=== PATIENT | male | born 1955 | race Caucasian/White ===

== ENCOUNTER 2019-06-28 05:00 | Emergency (ER) | payer OTHER ==
[2019-06-28] MEDS ORDERED: MORPHINE 4 MG/ML SYR ONE (05:26)
[2019-06-28] MEDS ORDERED: KETOROLAC 30 MG/ML INJ ONE (05:26)
[2019-06-28] MEDS ORDERED: NA CHLORIDE 0.9% 1,000 ML ONE (05:27)
[2019-06-28] MEDS ORDERED: ONDANSETRON 4 MG/2 ML VIAL ONE (05:27)
[2019-06-28 05:38] LABS: Absolute Lymphocytes (CBC) 1.7 K/uL (0.7-4.9); Basophils % 1.3 % (0-1.3); Hematocrit 43.1 % (39.6-49.0); Lymphocytes % 20.4 % (15.3-44.8); MPV 9.6 fL (7.6-11.3); RBC Red Blood Cell Count 5.08 M/uL (4.33-5.43)
[2019-06-28 06:01] LABS: ALT/SGPT 19 U/L (12-78); AST/SGOT 19 U/L (15-37); Albumin 3.6 g/dL (3.4-5.0); Alkaline Phosphatase 108 U/L (45-117); BUN Blood Urea Nitrogen 24 mg/dL (7-18); Bicarbonate 27 mmol/L (21-32); Bilirubin Direct < 0.1 mg/dL (0-0.2); Bilirubin Total 0.2 mg/dL (0.2-1.0); Glucose Level 104 mg/dL (74-106); Lipase 146 U/L (73-393); Protein, Total 7.5 g/dL (6.4-8.2); Sodium Level 141 mmol/L (136-145)
--- NOTE | 2019-06-28 07:40 | ER ---
Nurse's Notes [facility] Name: Ryan Bassett Age: 63 yrs Sex: Male : 1955 Arrival Date: 06/28/2019 Time: 05:01 Bed 6 Private MD: Aakash Tilley V Diagnosis: Hydronephrosis with renal and ureteral calculous obstruction Presentation: 06/28 05:13 Presenting complaint: Patient states: that he started to have left lower back pain fc after urination at 0200. Also having dark urine. Denies any nausea or vomiting. Thinks he may have kidney stones, hx of. Transition of care: patient was not received from another setting of care. Onset of symptoms was June 28, 2019 at 02:00. Risk Assessment: Do you want to hurt yourself or someone else? Patient reports no desire to harm self or others. Initial Sepsis Screen: Does the patient meet any 2 criteria? No. Patient's initial sepsis screen is negative. Does the patient have a suspected source of infection? No. Patient's initial sepsis screen is negative. Care prior to arrival: None. 05:13 Method Of Arrival: Ambulatory fc 05:13 Acuity: KAYCE 3 fc Historical: - Allergies: 05:21 No Known Allergies; fc - Home Meds: 05:21 gabapentin 300 mg oral cap 1 cap twice a day [Active]; meloxicam 15 mg oral tab 1 tab fc once daily [Active]; Myrbetriq 25 mg oral Tb24 1 tab once daily [Active]; - PMHx: 05:21 Kidney stones; Prostate Cancer; Chronic pain; fc - PSHx: 05:21 Prostate removal; Appendectomy; Knee surgery; fc - Immunization history:: Last tetanus immunization: up to date. - Social history:: Smoking status: Patient/guardian denies using tobacco, Patient/guardian denies using alcohol, street drugs. - Ebola Screening: : Patient negative for fever greater than or equal to 101.5 degrees Fahrenheit, and additional compatible Ebola Virus Disease symptoms Patient denies exposure to infectious person Patient denies travel to an Ebola-affected area in the 21 days before illness onset. Screenin:16 Abuse screen: Denies threats or abuse. Nutritional screening: No deficits noted. fc Tuberculosis screening: No symptoms or risk factors identified. Fall Risk None identified. Assessment: 05:34 General: Appears in no apparent distress. well groomed, Behavior is calm, cooperative. ak1 Pain: Complains of pain in LEFT FLANK. Neuro: Level of Consciousness is awake, alert, obeys commands, Oriented to person, place, Serging Machine Operator are equal bilaterally Moves all extremities. Gait is steady, Speech is normal. Cardiovascular: No deficits noted. Respiratory: No deficits noted. GI: No signs and/or symptoms were reported involving the gastrointestinal system. : Reports pain in left flank(s). EENT: No signs and/or symptoms were reported regarding the EENT system. Derm: No signs and/or symptoms reported regarding the dermatologic system. Musculoskeletal: No signs and/or symptoms reported regarding the musculoskeletal system. 06:07 Reassessment: pt taken to CT. ak1 06:22 Reassessment: Patient appears in no apparent distress at this time. Patient and/or ak1 family updated on plan of care and expected duration. Pain level reassessed. Patient is alert, oriented x 3, equal unlabored respirations, skin warm/dry/pink. Patient denies pain at this time. Patient states feeling better. Patient states symptoms have improved. 06:53 Reassessment: pt given urinal to provide a sample, no urine at this time. ak1 07:49 Reassessment: Patient appears in no apparent distress at this time. Patient and/or ph family updated on plan of care and expected duration. Pain level reassessed. Patient is alert, oriented x 3, equal unlabored respirations, skin warm/dry/pink. Pt providing urine sample at this time, d/c pending KUB per request of Dr Henderson Patient states feeling better. Vital Signs: 05:13 BP 159 / 96; Pulse 72; Resp 18; Temp 97.4(O); Pulse Ox 100% on R/A; Weight 112.49 kg fc (R); Height 5 ft. 8 in. (172.72 cm) (R); Pain 9/10; 05:34 BP 146 / 87; Pulse 78; Resp 18; Temp 97.4; Pulse Ox 98% on R/A; ak1 06:22 BP 134 / 78; Pulse 73; Resp 16; Temp 97.6; Pulse Ox 97% on R/A; Pain 2/10; ak1 07:50 BP 130 / 75; Pulse 74; Resp 18; Pulse Ox 99% on R/A; ph 05:13 Body Mass Index 37.71 (112.49 kg, 172.72 cm) ED Course: 05:01 Patient arrived in ED. am2 05:01 Aakash Tilley MD is Private Physician. am2 05:13 Arm band placed on Patient placed in an exam room, on a stretcher. fc 05:14 Kim Bond, RN is Primary Nurse. ak1 05:15 Triage completed. fc 05:16 Patient has correct armband on for positive identification. Placed in gown. Bed in low fc position. Call light in reach. Side rails up X 1. Pulse ox on. NIBP on. 05:16 No provider procedures requiring assistance completed. fc 05:35 Initial lab(s) drawn, by me, sent to lab. Inserted saline lock: 22 gauge in right ak1 antecubital area, using aseptic technique. Blood collected. 06:03 Morena Bran [facility]C [facility]. snw 06:03 Dane Ramirez MD is Attending Physician. snw 06:20 CT Stone Protocol In Process Unspecified. EDMS 07:37 Mingo Henderson MD is Referral Physician. snw 07:58 Abdomen 1 View (KUB) XRAY In Process Unspecified. EDMS 09:05 IV discontinued, intact, bleeding controlled, No redness/swelling at site. Pressure ss dressing applied. Administered Medications: 05:33 Drug: NS 0.9% 1000 ml Route: IV; Rate: 1 bolus; Site: right antecubital; ak1 06:54 Follow up: IV Status: Completed infusion; IV Intake: 1000ml ak1 05:33 Drug: morphine 4 mg Route: IVP; Site: right antecubital; ak1 06:53 Follow up: Response: No adverse reaction; Pain is decreased; RASS: Alert and Calm (0) ak1 05:33 Drug: Zofran 4 mg Route: IVP; Site: right antecubital; ak1 06:53 Follow up: Response: No adverse reaction ak1 05:33 Drug: TORadol 15 mg Route: IVP; Site: right antecubital; ak1 06:53 Follow up: Response: No adverse reaction; Pain is decreased ak1 07:49 Drug: Flomax 0.4 mg Route: PO; ph 07:58 Follow up: Response: No adverse reaction ph Intake: 06:54 IV: 1000ml; Total: 1000ml. ak1 Outcome: 07:38 Discharge ordered by . snw 09:05 Discharged to home with family. ss 09:05 Condition: good 09:05 Condition: improved 09:05 Instructed on discharge instructions, follow up and referral plans. medication usage, Demonstrated understanding of instructions, follow-up care, medications, Prescriptions given X 4. 09:06 Patient left the ED. ss Signatures: Dispatcher [employer] EDMS Morena Bran, CASE MGR-C CASE MGR-Csnw Miladys Jones RN KRISTOFER fc An Scott RN RN ss Kim Bond RN RN ak1 Josie Aranda RN RN Daria Connor Corrections: (The following items were deleted from the chart) 05:15 05:13 Presenting complaint: Patient states: that he started to have left lower back fc pain after urination at 0200. Also having dark urine. Denies any nausea or vomiting. fc
--- NOTE | 2019-06-28 07:41 | EDPHYS ---
Physician Documentation [facility] Name: Ryan Bassett Age: 63 yrs Sex: Male : 1955 Arrival Date: 06/28/2019 Time: 05:01 Bed 6 Private MD: Aakash Tilley V ED Physician Dane Ramirez HPI: 06/28 06:36 This 63 yrs old Male presents to ER via Ambulatory with complaints of Back snw Pain, kidney stones. 06:36 The patient presents with pain that is acute, with no known mechanism of injury, sudden snw onset of left flank pain post voiding at 0200. The symptoms are located in the left mid back. Onset: The symptoms/episode began/occurred suddenly, and became persistent. The pain does not radiate. Associated signs and symptoms: Pertinent negatives: abdominal pain, fever, nausea, vomiting. The problem was sustained awoke at 0200, urinated and then had severe left flank pain. Severity of symptoms: At their worst the symptoms were moderate, severe. 30 years ago. The patient has not recently seen a physician, the patient's primary care provider is Dr. Dr Tilley. Pt has a urologist at [facility]. at the time of my arrival, pt had Morphine, IVF. Pt states he is feeling great. Awaiting CT results, UA. Historical: - Allergies: 05:21 No Known Allergies; fc - Home Meds: 05:21 gabapentin 300 mg oral cap 1 cap twice a day [Active]; meloxicam 15 mg oral tab 1 tab fc once daily [Active]; Myrbetriq 25 mg oral Tb24 1 tab once daily [Active]; - PMHx: 05:21 Kidney stones; Prostate Cancer; Chronic pain; fc - PSHx: 05:21 Prostate removal; Appendectomy; Knee surgery; fc - Immunization history:: Last tetanus immunization: up to date. - Social history:: Smoking status: Patient/guardian denies using tobacco, Patient/guardian denies using alcohol, street drugs. - Ebola Screening: : Patient negative for fever greater than or equal to 101.5 degrees Fahrenheit, and additional compatible Ebola Virus Disease symptoms Patient denies exposure to infectious person Patient denies travel to an Ebola-affected area in the 21 days before illness onset. ROS: 06:35 Constitutional: Negative for fever, chills, and weight loss, Eyes: Negative for injury, snw pain, redness, and discharge, ENT: Negative for injury, pain, and discharge, Neck: Negative for injury, pain, and swelling, Cardiovascular: Negative for chest pain, palpitations, and edema, Respiratory: Negative for shortness of breath, cough, wheezing, and pleuritic chest pain, Abdomen/GI: Negative for abdominal pain, nausea, vomiting, diarrhea, and constipation, Back: Negative for injury and pain, : Negative for injury, bleeding, discharge, and swelling, MS/Extremity: Negative for injury and deformity, Skin: Negative for injury, rash, and discoloration, Neuro: Negative for headache, weakness, numbness, tingling, and seizure, Psych: Negative for depression, anxiety, suicide ideation, homicidal ideation, and hallucinations. Exam: 06:35 Constitutional: This is a well developed, well nourished patient who is awake, alert, snw and in no acute distress. Head/Face: Normocephalic, atraumatic. Eyes: Pupils equal round and reactive to light, extra-ocular motions intact. Lids and lashes normal. Conjunctiva and sclera are non-icteric and not injected. Cornea within normal limits. Periorbital areas with no swelling, redness, or edema. ENT: Nares patent. No nasal discharge, no septal abnormalities noted. Tympanic membranes are normal and external auditory canals are clear. Oropharynx with no redness, swelling, or masses, exudates, or evidence of obstruction, uvula midline. Mucous membranes moist. Neck: Trachea midline, no thyromegaly or masses palpated, and no cervical lymphadenopathy. Supple, full range of motion without nuchal rigidity, or vertebral point tenderness. No Meningismus. Chest/axilla: Normal chest wall appearance and motion. Nontender with no deformity. No lesions are appreciated. Cardiovascular: Regular rate and rhythm with a normal S1 and S2. No gallops, murmurs, or rubs. Normal PMI, no JVD. No pulse deficits. Respiratory: Lungs have equal breath sounds bilaterally, clear to auscultation and percussion. No rales, rhonchi or wheezes noted. No increased work of breathing, no retractions or nasal flaring. Abdomen/GI: Soft, non-tender, with normal bowel sounds. No distension or tympany. No guarding or rebound. No evidence of tenderness throughout. Back: No spinal tenderness. No costovertebral tenderness. Full range of motion. Skin: Warm, dry with normal turgor. Normal color with no rashes, no lesions, and no evidence of cellulitis. MS/ Extremity: Pulses equal, no cyanosis. Neurovascular intact. Full, normal range of motion. Neuro: Awake and alert, GCS 15, oriented to person, place, time, and situation. Cranial nerves II-XII grossly intact. Motor strength 5/5 in all extremities. Sensory grossly intact. Cerebellar exam normal. Normal gait. Psych: Awake, alert, with orientation to person, place and time. Behavior, mood, and affect are within normal limits. Vital Signs: 05:13 BP 159 / 96; Pulse 72; Resp 18; Temp 97.4(O); Pulse Ox 100% on R/A; Weight 112.49 kg fc (R); Height 5 ft. 8 in. (172.72 cm) (R); Pain 9/10; 05:34 BP 146 / 87; Pulse 78; Resp 18; Temp 97.4; Pulse Ox 98% on R/A; ak1 06:22 BP 134 / 78; Pulse 73; Resp 16; Temp 97.6; Pulse Ox 97% on R/A; Pain 2/10; ak1 07:50 BP 130 / 75; Pulse 74; Resp 18; Pulse Ox 99% on R/A; ph 05:13 Body Mass Index 37.71 (112.49 kg, 172.72 cm) MDM: 06:03 Patient medically screened. snw 07:32 Data reviewed: vital signs, nurses notes. Data interpreted: Pulse oximetry: on room air snw is 97 %. Interpretation: normal. Counseling: I had a detailed discussion with the patient and/or guardian regarding: the historical points, exam findings, and any diagnostic results supporting the discharge/admit diagnosis, the presence of at least one elevated blood pressure reading (>120/80) during this emergency department visit, lab results, radiology results, the need for outpatient follow up, a urologist. Physician consultation: Mingo Henderson MD was called at 07:33, was contacted at 07:33, regarding consult, patient's condition, need to evaluate the patient as soon as possible, KUB and bring films, stop anticoagulants, see in office 0800 Sunday a.m.. 06/28 05:12 Order name: Basic Metabolic Panel; Complete Time: 06:15 tw4 06/28 05:12 Order name: CBC with Diff; Complete Time: 06:15 tw4 06/28 05:12 Order name: Creatinine for Radiology; Complete Time: 06:15 tw4 06/28 05:12 Order name: Hepatic Function; Complete Time: 06:15 tw4 06/28 05:12 Order name: Lipase; Complete Time: 06:15 tw4 06/28 05:12 Order name: Urine Microscopic Only; Complete Time: 08:59 tw4 06/28 05:12 Order name: CT Stone Protocol tw4 06/28 07:32 Order name: Abdomen 1 View (KUB) XRAY snw 06/28 08:01 Order name: Urine Dipstick--Ancillary (enter results); Complete Time: 08:59 eb 06/28 08:57 Order name: Urine Culture EDMS 06/28 05:12 Order name: IV Saline Lock; Complete Time: 05:33 tw4 06/28 05:12 Order name: Labs collected and sent; Complete Time: 05:34 tw4 06/28 05:12 Order name: Urine Dipstick-Ancillary (obtain specimen); Complete Time: 07:58 tw4 Administered Medications: 05:33 Drug: NS 0.9% 1000 ml Route: IV; Rate: 1 bolus; Site: right antecubital; ak1 06:54 Follow up: IV Status: Completed infusion; IV Intake: 1000ml ak1 05:33 Drug: morphine 4 mg Route: IVP; Site: right antecubital; ak1 06:53 Follow up: Response: No adverse reaction; Pain is decreased; RASS: Alert and Calm (0) ak1 05:33 Drug: Zofran 4 mg Route: IVP; Site: right antecubital; ak1 06:53 Follow up: Response: No adverse reaction ak1 05:33 Drug: TORadol 15 mg Route: IVP; Site: right antecubital; ak1 06:53 Follow up: Response: No adverse reaction; Pain is decreased ak1 07:49 Drug: Flomax 0.4 mg Route: PO; ph 07:58 Follow up: Response: No adverse reaction ph Disposition: 06/29 06:02 Co-signature as Attending Physician, Dane Ramirez MD I agree with the assessment and tw4 plan of care. Disposition: 06/28/19 07:38 Discharged to Home. Impression: Hydronephrosis with renal and ureteral calculous obstruction. - Condition is Stable. - Discharge Instructions: Kidney Stones, Hydronephrosis, Dietary Guidelines to Help Prevent Kidney Stones, Rehydration, Adult. - Prescriptions for Tylenol- Codeine #3 300-30 mg Oral Tablet - take 2 tablets by ORAL route every 6 hours As needed; 20 tablet. Flomax 0.4 mg Oral Capsule, Sust. Release 24 hr - take 1 capsule by ORAL route once daily 1/2 hour following the same meal each day; 30 capsule. Cipro 500 mg Oral Tablet - take 1 tablet by ORAL route every 12 hours for 7 days; 14 tablet. promethazine 25 mg Oral Tablet - take 1 tablet by ORAL route every 6 hours As needed; 20 tablet. - Medication Reconciliation Form, Thank You Letter, Antibiotic Education, Prescription Opioid Use form. - Follow up: Mingo Henderson MD; When: Sunday at 0800; Reason: Recheck today's complaints, Continuance of care. Follow up: Emergency Department; When: As needed; Reason: Worsening of condition. Signatures: Dispatcher [employer] EDMS Morena Bran, AMANDA-C ARMATURE WINDER-Csnw Miladys Jones, RN An Salvador RN RN ss Krenek, Amber, RN RN Josie Luciano, RN RN Dane Bond MD MD tw4 Corrections: (The following items were deleted from the chart) 06/28 09:06 07:38 06/28/2019 07:38 Discharged to Home. Impression: Hydronephrosis with renal and ss ureteral calculous obstruction. Condition is Stable. Forms are Medication Reconciliation Form, Thank You Letter, Antibiotic Education, Prescription Opioid Use. Follow up: Mingo Henderson; When: Sunday at 0800; Reason: Recheck today's complaints, Continuance of care. Follow up: Emergency Department; When: As needed; Reason: Worsening of condition. snw
[2019-06-28] MEDS ORDERED: TAMSULOSIN 0.4 MG SR CAP ONE (07:47)
[2019-06-28 08:37] LABS: Urine Blood 2+ (NEG); Urine Glucose NEGATIVE (NEG); Urine Protein 1+ (NEG); Urine Specific Gravity 1.015 (1.005-1.030)
[2019-06-28 08:54] LABS: Urine Bacteria 20-50 /HPF (NONE SEEN); Urine Culture Reflex Order REFLEXED; Urine RBC 20-50 /HPF (NONE SEEN)
--- NOTE | 2019-06-28 12:21 | RAD REPORT ---
EXAM DESCRIPTION: RAD - Abdomen 1 View (KUB) - 06/28/2019 8:01 am CLINICAL HISTORY: kidney stone Pain COMPARISON: ABDOMEN 1 VIEW KUB dated 10/07/2012BDOMEN 1 VIEW KUB dated 10/07/2012; Stone Protocol d ated 06/28/2019 FINDINGS: The bowel gas pattern is non-obstructive. No evidence of free air or pneumatosis. The bolivar ent's proximal left ureter stone is difficult to visualize due to the presence of significant stool w ithin the colon superimposed in the region.
--- NOTE | 2019-06-30 10:11 | RAD REPORT ---
EXAM DESCRIPTION: CT Abdomen and Pelvis Without Intravenous Contrast CLINICAL HISTORY: The patient is 63 years old and is Male; ABD PAIN TECHNIQUE: Axial computed tomography images of the abdomen and pelvis without intravenous contrast. Sagittal and coronal reformatted images were created and reviewed. This CT exam was performed usi ng one or more of the following dose reduction techniques: automated exposure control, adjustment o f the mA and/or kV according to patient size, and/or use of iterative reconstruction technique. COMPARISON: No relevant prior studies available. FINDINGS: LUNG BASES: Unremarkable. No mass. No consolidation. ABDOMEN: LIVER: Homogeneous without focal mass. GALLBLADDER AND BILE DUCTS: The gallbladder is contracted. PANCREAS: Unremarkable. No ductal dilation. SPLEEN: Unremarkable. ADRENALS: Unremarkable. No mass. KIDNEYS AND URETERS: Mild left hydronephrosis is present secondary to an 8 mm proximal left uret eral calculus. Edema of the left kidney with associated perinephric stranding is present. Several l eft intrarenal calcifications are present. Punctate right intrarenal calcification is noted. STOMACH AND BOWEL: The stomach is decompressed. The small bowel is relatively normal in caliber. Stool is present throughout the colon. There is no mucosal thickening or evidence of bowel obstructi on. PELVIS: APPENDIX: No findings to suggest acute appendicitis. BLADDER: The bladder is moderately distended. No stones. REPRODUCTIVE: Unremarkable as visualized. ABDOMEN and PELVIS: INTRAPERITONEAL SPACE: Unremarkable. No free air. No significant fluid collection. BONES/JOINTS: Bilateral pars defects are present at L5 with grade 1 anterolisthesis of L5 on S1. SOFT TISSUES: Small fat-containing umbilical hernia is present. VASCULATURE: Minimal atherosclerosis of the vasculature is present. The vessels are normal in ca liber. No abdominal aortic aneurysm. LYMPH NODES: Unremarkable. No enlarged lymph nodes. IMPRESSION: 1. Mild left hydronephrosis is present secondary to an 8 mm proximal left ureteral raheem culus. 2. Bilateral nephrolithiasis. Electronically signed by: Patti Oconnor MD 06/28/2019 6:42 AM CDT Due to temporary technical issues with the PACS/Fluency reporting system, reports are being signed by the in house radiologist as a courtesy to ensure prompt reporting. The interpreting radiologist is f ully responsible for the content of the report.
== END 2019-06-28 09:06 | disposition home or self-care (01) ==
LOC: ER 05:00
DX: N13.2 Hydronephrosis with renal and ureteral calculous obstruction (principal); G89.29 Other chronic pain; Z90.79 Acquired absence of other genital organ(s); Z85.46 Personal history of malignant neoplasm of prostate
CPT/HCPCS: 96361; 87088; 85025; 87086; 80048; 36415; 80076; 83690; 76377; 74176; 74018; 96375; 96374; 99284; J7030; J2405; 81003; 81015; 87077; 87186

== ENCOUNTER 2019-07-08 19:34 | Inpatient (IN) | payer OTHER ==
[2019-07-08] MEDS ORDERED: MORPHINE 4 MG/ML SYR ONE ×2 (20:00→21:30)
[2019-07-08] MEDS ORDERED: KETOROLAC 30 MG/ML INJ ONE (20:00)
[2019-07-08] MEDS ORDERED: NA CHLORIDE 0.9% 1,000 ML ONE (20:01)
[2019-07-08] MEDS ORDERED: ONDANSETRON 4 MG/2 ML VIAL ONE (20:01)
[2019-07-08] MEDS ORDERED: CEFTRIAXONE/SWI 1gm 1 GM/10 ML SYR ONE (20:01)
[2019-07-08 20:25] LABS: Basophils % 0.5 % (0-1.3); Hematocrit 41.4 % (39.6-49.0); Lymphocytes % 6.2 % (15.3-44.8); MPV 9.5 fL (7.6-11.3); RBC Red Blood Cell Count 4.86 M/uL (4.33-5.43)
--- NOTE | 2019-07-08 20:42 | RAD REPORT ---
EXAM DESCRIPTION: CT - Stone Protocol - 07/08/2019 8:30 pm CLINICAL HISTORY: Flank pain. Abd pain;Flank pain COMPARISON: Stone Protocol dated 07/07/2019 TECHNIQUE: Axial images were obtained without oral or IV contrast. Lack of contrast limits solid org an and vascular assessment. The [id number] spans the entirety of the system partially obscuring uppermost abdomen and lung bases. Coronal reformatted images were obtained and reviewed. All CT scans are performed using dose optimization technique as appropriate and may include automated exposure control or mA/KV adjustment according to patient size. FINDINGS: The lower lung seymour are clear. Imaged portions of the liver and spleen show no suspicious findings on non-contrast imaging. The panc reas and adrenal glands are normal. No pathologic lymphadenopathy in the abdomen or pelvis. A large acute left perinephric hematoma is present crescentic in shape in measuring 5 cm in thickness . Mild mass effect is seen on the left renal parenchyma. Small amount of inflammatory changes and flu id extends into the left upper quadrant. Left double-J stent is in place with proximal and distal asp ects in expected position. Two small stones are seen adjacent to the stent in the left renal pelvis. Punctate calculus is seen inferior right kidney. No bowel obstruction, free air, free fluid or abscess. Small fat containing umbilical hernia. No significant bony abnormality. IMPRESSION: Large, 5 cm thick crescentic acute left perinephric hematoma. Left double-J stent is in place with 2 small oblong stones in the left renal pelvis adjacent to the s tent.
--- NOTE | 2019-07-08 20:47 | RAD REPORT ---
EXAM DESCRIPTION: RAD - Abdomen 1 View (KUB) - 07/08/2019 8:39 pm CLINICAL HISTORY: Abd pain;Flank pain Pain COMPARISON: Abdomen 1 View (KUB) dated 07/07/2019; Abdomen 1 View (KUB) dated 06/28/2019; ABDOMEN 1 EW KUB dated 10/07/2012 FINDINGS: The bowel gas pattern is non-obstructive. No evidence of free air or pneumatosis. Left ricardo ble-J stent is in place. Proximal and distal aspects are in appropriate position. Small vague calcifi cations are seen the proximal aspect of the stent.
[2019-07-08 20:59] LABS: ALT/SGPT 26 U/L (12-78); AST/SGOT 19 U/L (15-37); Albumin 3.5 g/dL (3.4-5.0); Alkaline Phosphatase 95 U/L (45-117); BUN Blood Urea Nitrogen 28 mg/dL (7-18); Bicarbonate 21 mmol/L (21-32); Bilirubin Direct < 0.1 mg/dL (0-0.2); Bilirubin Total 0.3 mg/dL (0.2-1.0); Glucose Level 179 mg/dL (74-106); Lipase 75 U/L (73-393); Potassium 4.4 mmol/L (3.5-5.1); Protein, Total 7.4 g/dL (6.4-8.2); Sodium Level 139 mmol/L (136-145)
[2019-07-08 21:19] LABS: Urine Blood 3+ (NEG); Urine Glucose TRACE (NEG); Urine Protein 3+ (NEG); Urine Specific Gravity >1.030 (1.005-1.030)
--- NOTE | 2019-07-08 22:02 | EDPHYS ---
Physician Documentation [facility] Name: Ryan Bassett Age: 63 yrs Sex: Male : 1955 Arrival Date: 07/08/2019 Time: 19:38 Bed 15 Private MD: Aakash Tilley V ED Physician José Byers HPI: 07/08 20:20 This 63 yrs old Male presents to ER via Wheelchair with complaints of juan Abdominal Pain. 20:20 The patient presents with abdominal pain in the left upper quadrant, in the left lower juan quadrant. Onset: The symptoms/episode began/occurred 1 day(s) ago. The patient complains of pain in the left low back and left mid back. The pain radiates to the left low back and left mid back. Onset: The symptoms/episode began/occurred 2 day(s) ago. Modifying factors: The symptoms are alleviated by nothing. the symptoms are aggravated by nothing. The patient presents with pain that is acute, with no known mechanism of injury. Historical: - Allergies: 19:49 No Known Allergies; la1 - PMHx: 19:49 Chronic pain; Kidney stones; Prostate Cancer; la1 - Immunization history:: Adult Immunizations up to date. - Social history:: Smoking status: Patient/guardian denies using tobacco. - Ebola Screening: : No symptoms or risks identified at this time. - Family history:: not pertinent. ROS: 20:20 Eyes: Negative for injury, pain, redness, and discharge, ENT: Negative for injury, juan pain, and discharge, Neck: Negative for injury, pain, and swelling, Cardiovascular: Negative for chest pain, palpitations, and edema, Respiratory: Negative for shortness of breath, cough, wheezing, and pleuritic chest pain. 20:20 : Negative for injury, bleeding, discharge, and swelling, MS/Extremity: Negative for injury and deformity, Skin: Negative for injury, rash, and discoloration, Neuro: Negative for headache, weakness, numbness, tingling, and seizure, Psych: Negative for depression, anxiety, suicide ideation, homicidal ideation, and hallucinations, Allergy/Immunology: Negative for hives, rash, and allergies, Endocrine: Negative for neck swelling, polydipsia, polyuria, polyphagia, and marked weight changes, Hematologic/Lymphatic: Negative for swollen nodes, abnormal bleeding, and unusual bruising. 20:20 Constitutional: Positive for chills, malaise. 20:20 Abdomen/GI: Positive for abdominal pain, abdominal cramps, abdominal distension, of the left upper quadrant and left lower quadrant. 20:20 Back: Positive for decreased range of motion, pain at rest, flank pain, on the left. Exam: 20:20 Constitutional: This is a well developed, well nourished patient who is awake, alert, juan and in no acute distress. Head/Face: Normocephalic, atraumatic. Eyes: Pupils equal round and reactive to light, extra-ocular motions intact. Lids and lashes normal. Conjunctiva and sclera are non-icteric and not injected. Cornea within normal limits. Periorbital areas with no swelling, redness, or edema. ENT: Nares patent. No nasal discharge, no septal abnormalities noted. Tympanic membranes are normal and external auditory canals are clear. Oropharynx with no redness, swelling, or masses, exudates, or evidence of obstruction, uvula midline. Mucous membranes moist. Neck: Trachea midline, no thyromegaly or masses palpated, and no cervical lymphadenopathy. Supple, full range of motion without nuchal rigidity, or vertebral point tenderness. No Meningismus. Chest/axilla: Normal chest wall appearance and motion. Nontender with no deformity. No lesions are appreciated. Cardiovascular: Regular rate and rhythm with a normal S1 and S2. No gallops, murmurs, or rubs. Normal PMI, no JVD. No pulse deficits. Respiratory: Lungs have equal breath sounds bilaterally, clear to auscultation and percussion. No rales, rhonchi or wheezes noted. No increased work of breathing, no retractions or nasal flaring. Abdomen/GI: Soft, non-tender, with normal bowel sounds. No distension or tympany. No guarding or rebound. No evidence of tenderness throughout. Male : Normal genitalia with no discharge or lesions. Skin: Warm, dry with normal turgor. Normal color with no rashes, no lesions, and no evidence of cellulitis. MS/ Extremity: Pulses equal, no cyanosis. Neurovascular intact. Full, normal range of motion. Neuro: Awake and alert, GCS 15, oriented to person, place, time, and situation. Cranial nerves II-XII grossly intact. Motor strength 5/5 in all extremities. Sensory grossly intact. Cerebellar exam normal. Normal gait. Psych: Awake, alert, with orientation to person, place and time. Behavior, mood, and affect are within normal limits. 20:20 Back: pain, is absent, ROM is normal, normal spinal alignment noted, CVA tenderness, that is mild, that is moderate, is noted on the left, vertebral tenderness, is not appreciated, muscle spasm, is not present. Vital Signs: 19:49 BP 123 / 92; Pulse 84; Resp 16; Temp 98.4; Pulse Ox 98% on R/A; Weight 112.49 kg; la1 Height 5 ft. 8 in. (172.72 cm); 21:22 BP 133 / 84; Pulse 68; Resp 18; Pulse Ox 96% on R/A; Pain 7/10; lc1 22:15 BP 122 / 80; Pulse 84; Resp 16; Pulse Ox 97% on R/A; lc1 23:15 BP 126 / 93; Pulse 84; Resp 16; Pulse Ox 94% on R/A; lc1 19:49 Body Mass Index 37.71 (112.49 kg, 172.72 cm) la1 MDM: 19:52 Patient medically screened. [facility] 20:22 Data reviewed: vital signs, nurses notes, lab test result(s), EKG, radiologic studies, [facility] CT scan, plain films. 07/08 19:55 Order name: Basic Metabolic Panel; Complete Time: 21:12 [facility] 07/08 19:55 Order name: CBC with Diff [facility] 07/08 19:55 Order name: Creatinine for Radiology; Complete Time: 21:12 [facility] 07/08 19:55 Order name: Hepatic Function; Complete Time: 21:12 [facility] 07/08 19:55 Order name: Lipase; Complete Time: 21:12 [facility] 07/08 19:55 Order name: Urine Culture [facility] 07/08 19:55 Order name: CT Stone Protocol; Complete Time: 21:12 [facility] 07/08 19:55 Order name: Abdomen 1 View (KUB) XRAY; Complete Time: 21:12 [facility] 07/08 20:27 Order name: Manual Differential EDMS 07/08 20:53 Order name: Urine Dipstick--Ancillary (enter results) mw2 07/08 19:55 Order name: IV Saline Lock; Complete Time: 20:07 [facility] 07/08 19:55 Order name: Labs collected and sent; Complete Time: 20: [facility] 07/08 19:55 Order name: Urine Dipstick-Ancillary (obtain specimen); Complete Time: 20:55 [facility] Administered Medications: 20:17 Drug: NS 0.9% 1000 ml Route: IV; Rate: 1 bolus; Site: right antecubital; lc1 22:43 Follow up: IV Status: Infusion continued lc1 22:43 Follow up: Response: No adverse reaction 1 20:20 Drug: morphine 4 mg {Note: RASS 0.} Route: IVP; Site: right antecubital; lc1 21:00 Follow up: Response: Pain is decreased lc1 21:00 Follow up: Response: RASS: Alert and Calm (0) 1 20:20 Drug: Zofran 4 mg Route: IVP; Infused Over: 2 mins; Site: right antecubital; lc1 21:00 Follow up: Response: No adverse reaction 1 20:24 Drug: TORadol 30 mg Route: IVP; Site: right antecubital; lc1 21:39 Follow up: Response: No adverse reaction 1 20:24 Drug: Rocephin 1 grams Route: IV; Rate: per protocol; Site: right antecubital; lc1 21:40 Follow up: Response: No adverse reaction lc1 22:48 Follow up: IV Status: Completed infusion lc1 21:35 Drug: morphine 4 mg {Note: RASS 0.} Route: IVP; Site: right antecubital; lc1 22:39 Follow up: Response: Pain is decreased 1 22:39 Follow up: Response: RASS: Drowsy (-1) 1 Disposition: 07/08/19 21:45 Hospitalization ordered by Aakash Tilley for Inpatient Admission. Preliminary diagnosis are Hydronephrosis with renal and ureteral calculous obstruction - 5 cm perinephric hematoma, left, Unspecified kidney failure. - Bed requested for Telemetry/MedSurg (Inpatient). - Status is Inpatient Admission. lc1 - Condition is Fair. - Problem is new. - Symptoms have improved. UTI on Admission? Yes Signatures: Dispatcher [employer] EDMS José Byers MD MD cha Calhoun, Lisa lc1 Panchito Serna RN RN la1 Quinn, Pretty, RN RN cg Corrections: (The following items were deleted from the chart) 22:01 21:45 Hospitalization Ordered by Aakash Tilley MD for Inpatient Admission. Preliminary juan diagnosis is Hydronephrosis with renal and ureteral calculous obstruction - 5 cm perinephric hematoma, left. Bed requested for Telemetry/MedSurg (Inpatient). Status is Inpatient Admission. Condition is Fair. Problem is new. Symptoms have improved. UTI on Admission? Yes. [facility] 22:10 22:01 07/08/2019 21:45 Hospitalization Ordered by Aakash Tilley MD for Inpatient cg Admission. Preliminary diagnosis is Hydronephrosis with renal and ureteral calculous obstruction - 5 cm perinephric hematoma, left; Unspecified kidney failure. Bed requested for Telemetry/MedSurg (Inpatient). Status is Inpatient Admission. Condition is Fair. Problem is new. Symptoms have improved. UTI on Admission? Yes. [facility] 23:39 22:10 07/08/2019 21:45 Hospitalization Ordered by Aakash Tilley MD for Inpatient lc1 Admission. Preliminary diagnosis is Hydronephrosis with renal and ureteral calculous obstruction - 5 cm perinephric hematoma, left; Unspecified kidney failure. Bed requested for Telemetry/MedSurg (Inpatient). Status is Inpatient Admission. Condition is Fair. Problem is new. Symptoms have improved. UTI on Admission? Yes. cg
--- NOTE | 2019-07-08 22:02 | ER ---
Nurse's Notes [facility] Name: Ryan Bassett Age: 63 yrs Sex: Male : 1955 Arrival Date: 07/08/2019 Time: 19:38 Bed 15 Private MD: Aakash Tilley V Diagnosis: Hydronephrosis with renal and ureteral calculous obstruction-5 cm perinephric hematoma, left;Unspecified kidney failure Presentation: 07/08 19:48 Presenting complaint: Patient states: I had lithotripsy at noon today with Dr. Santiago penaloza and my pain got very severe around 1500. I need something to control this pain. Pt reports able to urinate without difficulty. Transition of care: patient was not received from another setting of care. Onset of symptoms was July 08, 2019. Risk Assessment: Do you want to hurt yourself or someone else? Patient reports no desire to harm self or others. Initial Sepsis Screen: Does the patient meet any 2 criteria? No. Patient's initial sepsis screen is negative. Does the patient have a suspected source of infection? No. Patient's initial sepsis screen is negative. Care prior to arrival: None. 19:48 Method Of Arrival: Wheelchair la1 19:48 Acuity: KAYCE 3 la1 Historical: - Allergies: 19:49 No Known Allergies; la1 - PMHx: 19:49 Chronic pain; Kidney stones; Prostate Cancer; la1 - Immunization history:: Adult Immunizations up to date. - Social history:: Smoking status: Patient/guardian denies using tobacco. - Ebola Screening: : No symptoms or risks identified at this time. - Family history:: not pertinent. Screenin:32 Abuse screen: Denies threats or abuse. Nutritional screening: No deficits noted. lc1 Tuberculosis screening: No symptoms or risk factors identified. Fall Risk None identified. Assessment: 20:32 General: Appears distressed, uncomfortable, Behavior is cooperative, restless, Reports. lc1 Pain: Complains of pain in left lower quadrant and left upper quadrant and left mid back and left low back Pain currently is 10 out of 10 on a pain scale. Quality of pain is described as sharp, Pain began Is continuous, Alleviated by nothing. Current management is with has been taking prescribed Tramadol at home which has not provided any relief. Neuro: No deficits noted. Cardiovascular: No deficits noted. Respiratory: No deficits noted. GI: Bowel sounds present X 4 quads. Abd is soft. : No signs and/or symptoms were reported regarding the genitourinary system. Reports had lithotripsy done today and still has stent in place, has been urinating without any difficulty, just having extreme pain. EENT: No signs and/or symptoms were reported regarding the EENT system. Derm: No signs and/or symptoms reported regarding the dermatologic system. Musculoskeletal: No signs and/or symptoms reported regarding the musculoskeletal system. 21:27 Reassessment: No changes from previously documented assessment. Patient and/or family lc1 updated on plan of care and expected duration. Pain level reassessed. states pain is creeping back up, provider notified. 22:15 Reassessment: Patient and/or family updated on plan of care and expected duration. Pain lc1 level reassessed. Patient states feeling better. patient resting, rr even and unlabored, call ramirez within reach, plan is to admit, awaiting room assignment . 23:14 Reassessment: Patient and/or family updated on plan of care and expected duration. Pain lc1 level reassessed. Patient states feeling better. patient sleeping, family at bedside, call ramirez within reach, updated on plan for admit . Vital Signs: 19:49 BP 123 / 92; Pulse 84; Resp 16; Temp 98.4; Pulse Ox 98% on R/A; Weight 112.49 kg; la1 Height 5 ft. 8 in. (172.72 cm); 21:22 BP 133 / 84; Pulse 68; Resp 18; Pulse Ox 96% on R/A; Pain 7/10; lc1 22:15 BP 122 / 80; Pulse 84; Resp 16; Pulse Ox 97% on R/A; lc1 23:15 BP 126 / 93; Pulse 84; Resp 16; Pulse Ox 94% on R/A; lc1 19:49 Body Mass Index 37.71 (112.49 kg, 172.72 cm) la1 ED Course: 19:38 Patient arrived in ED. mr 19:38 Aakash Tilley MD is Private Physician. mr 19:49 Triage completed. la1 19:49 Arm band placed on left wrist. la1 19:52 José Byers MD is Attending Physician. [facility] 19:55 Lisa Black is Primary Nurse. lc1 20:07 Inserted saline lock: 20 gauge in right antecubital area, using aseptic technique. jd2 Blood collected. 20:10 Radiology exam delayed due to pt refusing to come to CT before getting pain meds. nj 20:31 CT Stone Protocol In Process Unspecified. EDMS 20:32 Patient has correct armband on for positive identification. Bed in low position. Side lc1 rails up X 1. 20:32 No provider procedures requiring assistance completed. taken to CT. IV is patent, is lc1 intact, with fluids infusing freely, with good blood return. 20:38 Abdomen 1 View (KUB) XRAY In Process Unspecified. EDMS 20:45 Door closed. Noise minimized. Lights dimmed. Warm blanket given. lc1 20:55 Urine collected: clean catch specimen, blood tinged, Amount Voided: 250mL. jd2 20:55 Urine Culture Sent. jd2 21:22 Awaiting radiology results. lc1 21:44 Aakash Tilley MD is Hospitalizing Provider. [facility] 22:40 Patient admitted, IV remains in place. lc1 Administered Medications: 20:17 Drug: NS 0.9% 1000 ml Route: IV; Rate: 1 bolus; Site: right antecubital; 1 22:43 Follow up: IV Status: Infusion continued lc1 22:43 Follow up: Response: No adverse reaction 1 20:20 Drug: morphine 4 mg {Note: RASS 0.} Route: IVP; Site: right antecubital; 1 21:00 Follow up: Response: Pain is decreased 1 21:00 Follow up: Response: RASS: Alert and Calm (0) 1 20:20 Drug: Zofran 4 mg Route: IVP; Infused Over: 2 mins; Site: right antecubital; 1 21:00 Follow up: Response: No adverse reaction 1 20:24 Drug: TORadol 30 mg Route: IVP; Site: right antecubital; 1 21:39 Follow up: Response: No adverse reaction 1 20:24 Drug: Rocephin 1 grams Route: IV; Rate: per protocol; Site: right antecubital; lc1 21:40 Follow up: Response: No adverse reaction 1 22:48 Follow up: IV Status: Completed infusion 1 21:35 Drug: morphine 4 mg {Note: RASS 0.} Route: IVP; Site: right antecubital; [facility] 22:39 Follow up: Response: Pain is decreased [facility] 22:39 Follow up: Response: RASS: Drowsy (-1) [facility] Outcome: 21:45 Decision to Hospitalize by Provider. [facility] 22:40 Condition: good [facility] 22:40 Instructed on the need for admit. 23:13 Admitted to Tele family with patient, via stretcher, room 407, Report called to pablito sainz RN 23:39 Patient left the ED. [facility] Signatures: Dispatcher [employer] EDMS José Byers MD MD cha Rivera, Palak mr Sofia, [facility] Panchito Serna RN RN Festus Carranza Nathan nj Corrections: (The following items were deleted from the chart) 23:14 22:40 Admitted to [place] [id number] 07/09 07:14 07:14 Response: RASS: Alert and Calm (0) [place] [id number] 07:15 07:13 Response: RASS: Drowsy (-1) [place] [id number]
[2019-07-08 22:18] LABS: Blood Morphology Comment NOT SEEN (NOT SEEN); Platelet Estimate ADEQ
[2019-07-08] MEDS ORDERED: ACETAMINOPHEN 500 MG TAB PO PRN (23:42)
[2019-07-08] MEDS ORDERED: ONDANSETRON 4 MG/2 ML VIAL IV PRN (23:42)
[2019-07-09 00:09] LABS: Hematocrit 38.6 % (39.6-49.0); MPV 9.5 fL (7.6-11.3); RBC Red Blood Cell Count 4.52 M/uL (4.33-5.43)
[2019-07-09 00:53] VITALS: BMI 38.6
[2019-07-09 04:15] LABS: MPV 9.6 fL (7.6-11.3); RBC Red Blood Cell Count 4.06 M/uL (4.33-5.43)
[2019-07-09] MEDS: NA CHLORIDE 0.9% 1,000 ML IV SCH ×4 (05:15→23:42)
[2019-07-09] MEDS: MORPHINE 4 MG/ML SYR IV PRN ×4 (05:16→20:26)
[2019-07-09 07:11] LABS: Hematocrit 33.2 % (39.6-49.0); RBC Red Blood Cell Count 3.92 M/uL (4.33-5.43)
[2019-07-09 07:41] LABS: Bilirubin Direct 0.1 mg/dL (0-0.2); Bilirubin Total 0.3 mg/dL (0.2-1.0); Potassium 4.1 mmol/L (3.5-5.1); Protein, Total 6.6 g/dL (6.4-8.2)
[2019-07-09] MEDS: CEFTRIAXONE/SWI 1gm 1 GM/10 ML SYR IV SCH ×2 (08:05→20:28)
[2019-07-09] MEDS: FAMOTIDINE 20 MG/2 ML VIAL IV SCH ×2 (08:05→20:27)
--- NOTE | 2019-07-09 08:32 | RAD REPORT ---
EXAM DESCRIPTION: CT - Abdomen W Contrast - 07/09/2019 7:31 am CLINICAL HISTORY: Left perinephric hematoma COMPARISON: Stone Protocol dated 07/08/2019; Stone Protocol dated 07/07/2019; Stone Protocol dated 06/12 TECHNIQUE: Biphasic, helical CT imaging of the abdomen was performed following 100 ml non-ionic IV c ontrast. All CT scans are performed using dose optimization technique as appropriate and may include automated exposure control or mA/KV adjustment according to patient size. FINDINGS: No suspicious findings in the lung bases. The liver, spleen, and pancreas show no suspici ous findings. Gallbladder and biliary tree are also without suspicious finding. Renal function is symmetric on arterial and venous phase imaging. Left collecting system stent remain s in place. The large left perinephric hematoma is stable in size. No active extravasation seen on ar terial phase imaging. The retroperitoneal blood adjacent to the spleen and extending inferiorly from the left kidney also without change. No solid mass seen of either kidney. No adrenal gland abnormality. No dilated bowel loops or bowel wall thickening. No free air, free fluid or inflammatory stranding. No hernia, mass or bulky lymphadenopathy. No suspicious bony findings. IMPRESSION: A large left perinephric hematoma and retroperitoneal bleed detailed July 08 has remai nigel stable in size. On arterial phase imaging no active extravasation. No new or progressive finding since prior day ruperto ging.
[2019-07-09 11:17] LABS: Absolute Lymphocytes (CBC) 1.7 K/uL (0.7-4.9); Basophils % 0.6 % (0-1.3); Hematocrit 32.6 % (39.6-49.0); Lymphocytes % 12.9 % (15.3-44.8); RBC Red Blood Cell Count 3.83 M/uL (4.33-5.43)
--- NOTE | 2019-07-09 14:43 | CON ---
History Of Present Illness: A 63-year-old male who had ESWL performed yesterday, began having severe left-sided home flank pain. He was brought to the ER where a scan was done revealing a very large l eft perinephric hematoma, measuring 5 cm in diameter. Stent was in good position. The stone is now gone. However, he had a perinephric bleed. We have been following his H and H during the night home . He started out at 13.5. He did have some hydration and it went down to 12.5, then 11.4, 11.1, the latest is 10.7 done at 11 a.m. today. We are going to check another one in 4 hours and go ahead and get him type and screen. We got a followup CT scan done with contrast, did not show any extravasati on or any active bleeding going on. So, we have him on bedrest currently and on clears and continue to monitor H and H and see how he does. He did mention that he is hungry and would like to eat. Allergies: NO KNOWN DRUG ALLERGIES. Past Medical History: Kidney stones, chronic pain, prostate cancer. Immunizations: Up to date. Social History: No smoking. Family History: Not pertinent. Review of Systems: Ten-point review of systems otherwise negative. Physical Examination: Vital Signs: Temperature 98.6, pulse 82, respirations 20, BP 114/65, saturations 93%. General: Patient is in good spirits. is present in the room. HEENT: Atraumatic, normocephalic. Lungs: Clear. Heart: S1, S2. Some tenderness in the left upper quadrant towards the lateral side where the hemato ma is. Genitourinary: Patient is voiding, making urine. Laboratory Studies: As mentioned, his last H and H was 10.7 and 32.6, platelet count 213. Chemistry : Sodium 140, potassium 4.1, chloride 109, carbon dioxide 26, BUN 28, creatinine 1.1, GFR 67, glucos e 126, calcium 8.0. Urine study did show some 3+ blood, nitrite negative, esterase 1+. Assessment: Left perinephric bleed, 5 cm hematoma, status post extracorporeal shock wave lithotripsy , postop day 1 now. We will continue to monitor patient, bedrest, serial H and H, hydration. We sandy l go ahead and type and screen since his last hemoglobin was 10.7. Continue to monitor patient at [facility] for another 24 hours of bed rest. DEBORAH/MARIANNA Voice ID: [id number] Report ID: [id number]
[2019-07-09 15:12] LABS: Hematocrit 30.5 % (39.6-49.0)
[2019-07-09 19:58] LABS: Hematocrit 29.3 % (39.6-49.0)
--- NOTE | 2019-07-09 20:37 | P.HP ---
Certification for Inpatient Patient admitted to: Inpatient With expected LOS: >2 Midnights Practitioner: I am a practitioner with admitting privileges, knowledge of patient current condition, hospital course, and medical plan of care. Services: Services provided to patient in accordance with Admission requirements found in Title 42 Section 412.3 of the Code of Federal Regulations Patient History Date of Service: 07/09/19 Reason for admission: L FLANK PAIN. History of Present Illness: MR. FALK HAD L SIDE RENAL STONE, PYELONEPHRITIS WITH IT, STENT WAS NOT DONE HE HAD SEVERE INFECTION. HE WAS GIVEN IV ANTIBIOTICS AND FOLLOWED BY DR. WATSON. HE COMES TO HOSPITAL WITH SEVERE PAIN BY [address] LEA CALLS ME ABOUT 9 PM FOR ADMISSION. Allergies No Known Allergies Allergy (Unverified 10/08/17 02:56) Home Medications: Ascorbic Acid [Vitamin C] 1,000 mg PO DAILY 07/09/19 Docusate Calcium [Surfak] 240 mg PO BID 07/09/19 Docusate Sodium [Stool Softener] 100 mg PO DAILY 07/09/19 Gabapentin 300 mg PO DAILY 07/09/19 Mirabegron [Myrbetriq] 25 mg PO DAILY 07/09/19 Oxybutynin Chloride [Ditropan Xl] 10 mg PO DAILY 07/09/19 Sulfamethoxazole/Trimethoprim [Bactrim Ds Tablet] 1 each PO BID 07/09/19 Tadalafil [Cialis] 10 mg PO DAILY 07/09/19 Tamsulosin [Flomax] 0.4 mg PO DAILY 07/09/19 Tramadol HCl [Ultram] 50 mg PO Q6H PRN 07/09/19 - Past Medical/Surgical History Has patient received pneumonia vaccine in the past: No Diabetic: No -: chronic back pain r/t PARS defect -: kidney stones -: prostate cancer -: appy -: rt knee sx - Social History Smoking Status: Never smoker Alcohol use: No CD- Drugs: No Caffeine use: Yes Place of Residence: Home Review of Systems 10-point ROS is otherwise unremarkable Genitourinary: Other, As per HPI Physical Examination - Vital Signs Temperature: 97.0 F Blood Pressure: 133/60 Pulse: 75 Respirations: 20 Pulse Ox (%): 97 - Physical Exam General: Moderate distress, Obese HEENT: Atraumatic, PERRLA, Mucous membr. moist/pink, EOMI, Sclerae nonicteric Neck: Supple, 2+ carotid pulse no bruit, No LAD, Without JVD or thyroid abnormality Respiratory: Clear to auscultation bilaterally, Normal air movement Cardiovascular: Regular rate/rhythm, Normal S1 S2 Gastrointestinal: Normal bowel sounds, No tenderness Musculoskeletal: No tenderness Integumentary: No rashes Neurological: Normal gait, Normal speech, Normal strength at 5/5 x4 extr, Normal tone, Normal affect Lymphatics: No axilla or inguinal lymphadenopathy - Studies Laboratory Data (last 24 hrs) 07/08/19 20:05: Creatinine 1.37 H 07/08/19 20:05: Sodium 139, Potassium 4.4, BUN 28 H, Creatinine 1.39 H, Glucose 179 H, Total Bilirubin 0.3, AST 19, ALT 26, Alkaline Phosphatase 95, Lipase 75 Assessment and Plan - Problems (Diagnosis) (1) Perinephric hematoma Current Visit: Yes Status: Acute Plan: HIS HEMATOMA IS AROUND KIDNEY. DR. WATSON JUST CALLED ME AT 8:36 PM. HE WANTS TO TRANSFER HIM TO [facility]. I AGREE. HE IS ARRANGING IT TONIGHT. - Advance Directives Does patient have a Living Will: No Does patient have a Durable POA for Healthcare: No
[2019-07-10] MEDS: MORPHINE 4 MG/ML SYR IV PRN ×5 (00:44→18:59)
[2019-07-10 04:33] LABS: Absolute Lymphocytes (CBC) 1.8 K/uL (0.7-4.9); Basophils % 1.2 % (0-1.3); Hematocrit 28.1 % (39.6-49.0); Lymphocytes % 18.8 % (15.3-44.8); MPV 9.4 fL (7.6-11.3); RBC Red Blood Cell Count 3.33 M/uL (4.33-5.43)
[2019-07-10 04:38] LABS: Protime INR 1.16
[2019-07-10 04:47] LABS: ALT/SGPT 19 U/L (12-78); AST/SGOT 11 U/L (15-37); Albumin 2.9 g/dL (3.4-5.0); Alkaline Phosphatase 77 U/L (45-117); BUN Blood Urea Nitrogen 15 mg/dL (7-18); Bicarbonate 27 mmol/L (21-32); Bilirubin Total 0.3 mg/dL (0.2-1.0); Glucose Level 91 mg/dL (74-106); Phosphorus 1.8 mg/dL (2.5-4.9); Potassium 4.2 mmol/L (3.5-5.1); Protein, Total 6.4 g/dL (6.4-8.2); Sodium Level 143 mmol/L (136-145)
[2019-07-10] MEDS: NA CHLORIDE 0.9% 1,000 ML IV SCH ×2 (06:44→15:42)
[2019-07-10] MEDS ORDERED: FENTANYL CITR 100 MCG/2 ML IV ONE (07:32)
[2019-07-10] MEDS: FAMOTIDINE 20 MG/2 ML VIAL IV SCH ×2 (07:44→20:14)
[2019-07-10] MEDS: CEFTRIAXONE/SWI 1gm 1 GM/10 ML SYR IV SCH ×2 (07:44→20:15)
--- NOTE | 2019-07-10 08:05 | P.PN ---
Date of Service: 07/10/19 Patient is a 63yo who was admitted to the hospital with a perinephric hematoma s /p lithotripsy and stent. Patient's hemoglobin has gradually dropped from 13.5 to 9.8. Spoke with Urology and we initiated transfer to [facility] where patient has a urologist. We did initiate transfer to [facility]. Patient was accepted by the grout machine tender and the urologist. Awaiting for bed at this time. Continue with NPO.
[2019-07-10 09:00] LABS: Hematocrit 28.8 % (39.6-49.0)
--- NOTE | 2019-07-10 12:43 | PN ---
Subjective: The patient is seen in good mood and he can eat. Vital signs are stable. Latest vitals on 8 a.m. shows temperature at 98.8, pulse 83, respirations 18, BP 149/78, 96% sat on room air. His last H and H have stabilized at 9.8 and 28.8. Before that at 4 a.m. it was 9.5 and 28.1. This was the first time he did not drop since he has been here. Assessment: Left perirenal hematoma with decrease in H and H. He has a large hematoma around the kidney, now causing lots of pain even though he needs to have this drained eventually anyway and I think it is important for him to still be transferred, see what special procedure can do for him hopefully. If it stops bleeding then no embolization will be needed, but possible just drain hematoma, to help with pain and prevent further kidney complications. DEBORAH/MARIANNA Voice ID: [id number] Report ID: [id number] HANNA
--- NOTE | 2019-07-10 13:10 | P.PN ---
Subjective Date of Service: 07/10/19 Chief Complaint: L FLANK PAIN. Subjective: Improving HE IS STILL IN SIGNIFICANT PAIN NEEDING IV DILAUDID EVERY [address] WATSON HAS INITIATED TRANSFER FOR THIS LARGE PERINEPHRIC HEMATOMA. Review of Systems General: Malaise Genitourinary: As per HPI Physical Examination - Vital Signs Temperature: 99.3 F Blood Pressure: 134/81 Pulse: 87 Respirations: 18 Pulse Ox (%): 96 - Physical Exam General: Alert, Moderate distress, Obese HEENT: Atraumatic, PERRLA, EOMI Neck: Supple, JVD not distended Respiratory: Clear to auscultation bilaterally, Normal air movement Cardiovascular: Regular rate/rhythm, Normal S1 S2 Gastrointestinal: Tenderness (L SIDE LUMBAR AND FLANK REGION.) Musculoskeletal: No tenderness Integumentary: No rashes Neurological: Normal speech, Normal tone, Normal affect Lymphatics: No axilla or inguinal lymphadenopathy - Studies Medications List Reviewed: Yes Assessment And Plan - Current Problems (Diagnosis) (1) Perinephric hematoma Current Visit: Yes Status: Acute Plan: HIS HEMATOMA IS AROUND KIDNEY. DR. WATSON JUST CALLED ME AT 8:36 PM. HE WANTS TO TRANSFER HIM TO [place] HEMOGLOBIN KEEPS ON DROPPING. I AGREE. HE IS ARRANGING IT TONIGHT. TO [place] IF APPROVED. HG IS STABLE. HE MAY NOT NEED SURGERY AGAIN.
[2019-07-10 22:47] VITALS: O2SAT 91
[2019-07-11] MEDS ORDERED: FENTANYL CITR 100 MCG/2 ML IV ONE (00:35)
[2019-07-11 00:40] VITALS: BP 134/67; TEMP 98.6
== END 2019-07-11 01:10 | disposition short-term general hospital (02) | DRG 921 ==
LOC: ER 19:34 → ERHOLD 21:48 → 4TH 23:14
PROVIDERS: ADMIT Internal Medicine; ATTEND Internal Medicine
DX: N99.840 Postprocedural hematoma of a genitourinary system organ or structure following a genitourinary system procedure (principal); Y83.8 Other surgical procedures as the cause of abnormal reaction of the patient, or of later complication, without mention of misadventure at the time of the procedure; Y73.1 Therapeutic (nonsurgical) and rehabilitative gastroenterology and urology devices associated with adverse incidents; Y92.234 Operating room of hospital as the place of occurrence of the external cause; N13.9 Obstructive and reflux uropathy, unspecified
CPT/HCPCS: 36415; 74018; 74160; 74176; 76377; 80048; 80053; 80076; 81003; 83690; 83735; 84100; 85014; 85018; 85025; 85027; 85610; 85730; 86850; 86900; 86901; 87086; 87088; 96365; 96366; 96375; 99285; J0696; J2405; J3010; J7030; Q9967

== ENCOUNTER 2019-09-02 11:53 | Day surgery (SDC) | payer OTHER ==
[2019-09-02] MEDS ORDERED: GENTAMICIN 80 MG/100 ML BAG 80 MG/100 ML BAG IV ONE (12:14)
[2019-09-02] MEDS ORDERED: Ringers Lactate 1,000 ML IV ONE (12:14)
--- NOTE | 2019-09-02 13:03 | RAD REPORT ---
EXAM DESCRIPTION: RAD - Abdomen 1 View (KUB) - 09/02/2019 12:48 pm CLINICAL HISTORY: Abdomen pain. FINDINGS: The bowel gas pattern is unremarkable. A 8 millimeter calculus is present within the proximal left ureter between the left transverse proces ses of L2 and L3
[2019-09-02] MEDS ORDERED: MIDAZOLAM HCL 2 MG/2 ML INJ ONE (13:09)
[2019-09-02] MEDS ORDERED: LIDOCAINE 1% MPF 5 ML VIAL ONE (13:09)
[2019-09-02] MEDS ORDERED: PROPOFOL 200 MG/20 ML VIAL IV ONE (13:09)
[2019-09-02] MEDS ORDERED: FENTANYL CITR 100 MCG/2 ML ONE (13:09)
[2019-09-02] MEDS ORDERED: Mastisol Adhesive Liq ONE (14:17)
[2019-09-02 15:06] VITALS: O2SAT 96
[2019-09-02] MEDS ORDERED: TRAMADOL HCL 50 MG TAB ONE (15:30)
[2019-09-02] MEDS ORDERED: PHENAZOPYRIDINE 100MG TAB PO ONE (15:30)
--- NOTE | 2019-09-02 15:41 | RAD REPORT ---
EXAM DESCRIPTION: RAD - Urethrocystogrphy Retrograde - 09/02/2019 3:33 pm FINDINGS: Multiple overhead KUB images were obtained during a fluoroscopic assisted placement of a l eft ureteral stent. No suspicious or unexpected finding. There were 19 fluoroscopic images acquired. Fluoro time was 1.4 minutes.
[2019-09-02 15:45] VITALS: BP 146/85; TEMP 97.4
== END 2019-09-02 15:58 | disposition home or self-care (01) ==
LOC: OR 11:53
PROVIDERS: ATTEND Urology
PROC: 0T778DZ Dilation of Left Ureter with Intraluminal Device, Via Natural or Artificial Opening Endoscopic (ICD-10-PCS; 2019-09-02)
PROC: 0TF78ZZ Fragmentation in Left Ureter, Via Natural or Artificial Opening Endoscopic (ICD-10-PCS; principal; 2019-09-02 13:00)
DX: N20.2 Calculus of kidney with calculus of ureter (principal); Q62.39 Other obstructive defects of renal pelvis and ureter; N39.3 Stress incontinence (female) (male); F17.220 Nicotine dependence, chewing tobacco, uncomplicated; Z85.46 Personal history of malignant neoplasm of prostate; Z82.49 Family history of ischemic heart disease and other diseases of the circulatory system; Z80.9 Family history of malignant neoplasm, unspecified
CPT/HCPCS: 88300; 82360; 74018; 74450; 51610; 52356; J2704; J2250; J3010; J7120; J1580

== ENCOUNTER 2021-11-21 14:21 | Emergency (ER) | payer OTHER ==
--- OUTSIDE RECORDS SUMMARY | 2021-11-21 14:24 | XMS REPORT | Continuity of Care Document ---
:1955 [address] [facility] Address [address] [place] [address] Dr. Hernandez [address] [place] [address] Care Team Providers Name Role Phone YVROSE Attending Clinician Unavailable ENEDELIA Attending Clinician Unavailable ROSANNA COYLE Attending Clinician Unavailable ROSANNA COYLE Admitting Clinician Unavailable Problems This patient has no known problems. Allergies, Adverse Reactions, Alerts This patient has no known allergies or adverse reactions. Medications This patient has no known medications. Procedures This patient has no known procedures. Encounters Start End Encounter Admission Attending Care Care Encounter Source Date/Time Date/Time Type Type Clinicians Facility Department ID 2021-08-17 2021-08-17 Outpatient [facility] [id number] [place] 00:00:00 00:00:[address] 2021-01-26 2021-01-26 Outpatient LEVILARRY [facility] [id number] [place] 00:00:00 00:00:[address] [place] [address] 2021-01-05 2021-01-05 Outpatient [facility] [id number] [place] 00:00:00 00:00:[address] 2021-01-05 2021-01-05 [id number] [place] 00:[facility]:00 00:00:00 ISABELLA [address] Results Test Description Test Time Test Comments Results Result Comments Source HEMOGLOBIN AND HEMATOCRIT 2019-07-12 12:09:00 Test Item Value Reference Range Interpretation Comme nts HEMOGLOBIN (BEAKER) (test code = 410) 9.2 GM/DL 13.7-17.5 L HEMATOCRIT (BEAKER) (test code = 411) 28.1 % 40.1-51.0 L [id number] 07:56:00 Test Item Value Reference Range Interpretation Comments PHOSPHORUS (BEAKER) (test code = 2.7 mg/dL 2.3-4.7 604) [id number] 07:56:00 Test Item Value Reference Range Interpretation Comments MAGNESIUM (BEAKER) (test code = 1.9 mg/dL 1.6-2.6 627) BASIC METABOLIC [id number] 07:56:00 Test Item Value Reference Range Interpretation Comments SODIUM (BEAKER) 138 meq/L 136-145 (test code = 381) POTASSIUM (BEAKER) 3.6 meq/L 3.5-5.1 (test code = 379) CHLORIDE (BEAKER) 107 meq/L 98-107 (test code = 382) CO2 (BEAKER) (test 25 meq/L 22-29 code = 355) BLOOD UREA NITROGEN 13 mg/dL 7-21 (BEAKER) (test code = 354) CREATININE (BEAKER) 0.72 mg/dL 0.57-1.25 (test code = 358) GLUCOSE RANDOM 100 mg/dL 70-105 (BEAKER) (test code = 652) CALCIUM (BEAKER) 8.3 mg/dL 8.4-10.2 L (test code = 697) EGFR (BEAKER) (test 111 mL/min/1.73 ESTIM ATED GFR IS code = 1092) sq m NOT ACCURATE CREATININE CLEARANCE IN PREDICTING GLOMERULAR FILTRATION RATE . ESTIMATED GFR I S NOT APPLICABLE FOR DIALYSIS PATIEN TS. HEMOGLOBIN AND [id number] 07:02:00 Test Item Value Reference Range Interpretation Comments HEMOGLOBIN (BEAKER) (test code = 9.2 GM/DL 13.7-17.5 L 410) HEMATOCRIT (BEAKER) (test code = 28.2 % 40.1-51.0 L 411) HEMOGLOBIN AND [id number] 00:35:00 Test Item Value Reference Range Interpretation Comments HEMOGLOBIN (BEAKER) (test code = 8.8 GM/DL 13.7-17.5 L 410) HEMATOCRIT (BEAKER) (test code = 26.1 % 40.1-51.0 L 411) HEMOGLOBIN AND [id number] 16:41:00 Test Item Value Reference Range Interpretation Comments HEMOGLOBIN (BEAKER) (test code = 9.7 GM/DL 13.7-17.5 L 410) HEMATOCRIT (BEAKER) (test code = 29.9 % 40.1-51.0 L 411) CALCIUM, [id number] 09:28:00 Test Item Value Reference Range Interpretation Comments CALCIUM IONIZED (BEAKER) (test 1.17 mmol/L 1.12-1.27 code = 698) PH, BLOOD (BEAKER) (test code = 7.47 1810) CBC W/PLT COUNT & AUTO [id number] 09:26:00 Test Item Value Reference Range Interpretation Comments WHITE BLOOD CELL COUNT (BEAKER) 9.3 K/ L 3.5-10.5 (test code = 775) RED BLOOD CELL COUNT (BEAKER) 3.30 M/ L 4.63-6.08 L (test code = 761) HEMOGLOBIN (BEAKER) (test code = 9.4 GM/DL 13.7-17.5 L 410) HEMATOCRIT (BEAKER) (test code = 28.5 % 40.1-51.0 L 411) MEAN CORPUSCULAR VOLUME (BEAKER) 86.4 fL 79.0-92.2 (test code = 753) MEAN CORPUSCULAR HEMOGLOBIN 28.5 pg 25.7-32.2 (BEAKER) (test code = 751) MEAN CORPUSCULAR HEMOGLOBIN CONC 33.0 GM/DL 32.3-36.5 (BEAKER) (test code = 752) RED CELL DISTRIBUTION WIDTH 13.1 % 11.6-14.4 (BEAKER) (test code = 412) PLATELET COUNT (BEAKER) (test 193 K/CU MM 150-450 code = 756) MEAN PLATELET VOLUME (BEAKER) 10.3 fL 9.4-12.4 (test code = 754) NUCLEATED RED BLOOD CELLS 0 /100 WBC 0-0 (BEAKER) (test code = 413) NEUTROPHILS RELATIVE PERCENT 66 % (BEAKER) (test code = 429) LYMPHOCYTES RELATIVE PERCENT 16 % (BEAKER) (test code = 430) MONOCYTES RELATIVE PERCENT 12 % (BEAKER) (test code = 431) EOSINOPHILS RELATIVE PERCENT 5 % (BEAKER) (test code = 432) BASOPHILS RELATIVE PERCENT 1 % (BEAKER) (test code = 437) NEUTROPHILS ABSOLUTE COUNT 6.10 K/ L 1.78-5.38 H (BEAKER) (test code = 670) LYMPHOCYTES ABSOLUTE COUNT 1.45 K/ L 1.32-3.57 (BEAKER) (test code = 414) MONOCYTES ABSOLUTE COUNT (BEAKER) 1.12 K/ L 0.30-0.82 H (test code = 415) EOSINOPHILS ABSOLUTE COUNT 0.48 K/ L 0.04-0.54 (BEAKER) (test code = 416) BASOPHILS ABSOLUTE COUNT (BEAKER) 0.07 K/ L 0.01-0.08 (test code = 417) IMMATURE GRANULOCYTES-RELATIVE 0 % 0-1 PERCENT (BEAKER) (test code = 2801) POCT-GLUCOSE [id number] 06:09:00 Test Item Value Reference Range Interpretation Comments POC-GLUCOSE METER 94 mg/dL 70-110 TESTED AT [facility] [address] (BEAKER) (test code = [place] [address]) URINALYSIS W/ REFLEX URINE [id number] 04:41:00 Test Item Value Reference Range Interpretation Comments COLOR (BEAKER) (test code = 470) Yellow CLARITY (BEAKER) (test code = 469) Clear SPECIFIC GRAVITY UA (BEAKER) (test 1.013 1.001-1.035 code = 468) PH UA (BEAKER) (test code = 467) 6.0 5.0-8.0 PROTEIN UA (BEAKER) (test code = 30 mg/dL Negative A 464) GLUCOSE UA (BEAKER) (test code = Negative Negative 365) KETONES UA (BEAKER) (test code = Trace Negative A 371) BILIRUBIN UA (BEAKER) (test code = Negative Negative 462) BLOOD UA (BEAKER) (test code = Moderate Negative A 461) NITRITE UA (BEAKER) (test code = Negative Negative 465) LEUKOCYTE ESTERASE UA (BEAKER) Large Negative A (test code = 466) UROBILINOGEN UA (BEAKER) (test 0.2 mg/dL 0.2-1.0 code = 463) RBC UA (BEAKER) (test code = 519) 146 /HPF WBC UA (BEAKER) (test code = 520) 57 /HPF MUCUS (BEAKER) (test code = 1574) Occasional HYALINE CASTS (BEAKER) (test code 5 /LPF = 514) SOURCE(BEAKER) (test code = 0391) HEPATIC FUNCTION [id number] 03:58:00 Test Item Value Reference Range Interpretation Comments TOTAL PROTEIN (BEAKER) (test code = 6.7 gm/dL 6.0-8.3 770) ALBUMIN (BEAKER) (test code = 1145) 3.5 g/dL 3.5-5.0 BILIRUBIN TOTAL (BEAKER) (test code 0.4 mg/dL 0.2-1.2 = 377) BILIRUBIN DIRECT (BEAKER) (test 0.2 mg/dL 0.1-0.5 code = 706) ALKALINE PHOSPHATASE (BEAKER) (test 73 U/L 40-150 code = 346) AST (SGOT) (BEAKER) (test code = 14 U/L 5-34 353) ALT (SGPT) (BEAKER) (test code = 12 U/L 6-55 347) BASIC METABOLIC [id number] 03:58:00 Test Item Value Reference Range Interpretation Comments SODIUM (BEAKER) 138 meq/L 136-145 (test code = 381) POTASSIUM (BEAKER) 3.8 meq/L 3.5-5.1 (test code = 379) CHLORIDE (BEAKER) 107 meq/L 98-107 (test code = 382) CO2 (BEAKER) (test 24 meq/L 22-29 code = 355) BLOOD UREA NITROGEN 13 mg/dL 7-21 (BEAKER) (test code = 354) CREATININE (BEAKER) 0.76 mg/dL 0.57-1.25 (test code = 358) GLUCOSE RANDOM 96 mg/dL 70-105 (BEAKER) (test code = 652) CALCIUM (BEAKER) 8.3 mg/dL 8.4-10.2 L (test code = 697) EGFR (BEAKER) (test 104 mL/min/1.73 ESTIM ATED GFR IS code = 1092) sq m NOT ACCURATE CREATININE CLEARANCE IN PREDICTING GLOMERULAR FILTRATION RATE . ESTIMATED GFR I S NOT APPLICABLE FOR DIALYSIS PATIEN TS. [id number] 03:58:00 Test Item Value Reference Range Interpretation Comments MAGNESIUM (BEAKER) (test code = 2.0 mg/dL 1.6-2.6 627) [id number] 03:58:00 Test Item Value Reference Range Interpretation Comments PHOSPHORUS (BEAKER) (test code = 2.5 mg/dL 2.3-4.7 604) [id number] 03:30:00 Test Item Value Reference Range Interpretation Comments PROTIME (BEAKER) (test code = 15.0 seconds 11.9-14.2 H 759) INR (BEAKER) (test code = 370) 1.2 <=5.9 PARTIAL THROMBOPLASTIN TIME 34.4 seconds 22.5-36.0 (BEAKER) (test code = 760) Effective 04/09/2019: PT Reference Range ChangeNew: 11.9-14.2 Previous: 11.7- 14.7RECOMMENDED COUMADIN/WARFARIN INR THERAPY RANGESSTANDARD DOSE: 2.0-3.0 Includes: PROPHYLAXIS for venous thrombosis, systemic embolization; TREATMENT for venous thrombosis and/or pulmonary embolus.HIGH RISK: Target INR is2.5-3.5 for patients wiht mechanical heart valves.CBC W/PLT COUNT & AUTO [id number] 03:13:00 Test Item Value Reference Range Interpretation Comments WHITE BLOOD CELL COUNT (BEAKER) 11.1 K/ L 3.5-10.5 H (test code = 775) RED BLOOD CELL COUNT (BEAKER) 3.35 M/ L 4.63-6.08 L (test code = 761) HEMOGLOBIN (BEAKER) (test code = 9.5 GM/DL 13.7-17.5 L 410) HEMATOCRIT (BEAKER) (test code = 28.8 % 40.1-51.0 L 411) MEAN CORPUSCULAR VOLUME (BEAKER) 86.0 fL 79.0-92.2 (test code = 753) MEAN CORPUSCULAR HEMOGLOBIN 28.4 pg 25.7-32.2 (BEAKER) (test code = 751) MEAN CORPUSCULAR HEMOGLOBIN CONC 33.0 GM/DL 32.3-36.5 (BEAKER) (test code = 752) RED CELL DISTRIBUTION WIDTH 13.2 % 11.6-14.4 (BEAKER) (test code = 412) PLATELET COUNT (BEAKER) (test 202 K/CU MM 150-450 code = 756) MEAN PLATELET VOLUME (BEAKER) 10.5 fL 9.4-12.4 (test code = 754) NUCLEATED RED BLOOD CELLS 0 /100 WBC 0-0 (BEAKER) (test code = 413) NEUTROPHILS RELATIVE PERCENT 67 % (BEAKER) (test code = 429) LYMPHOCYTES RELATIVE PERCENT 15 % (BEAKER) (test code = 430) MONOCYTES RELATIVE PERCENT 12 % (BEAKER) (test code = 431) EOSINOPHILS RELATIVE PERCENT 5 % (BEAKER) (test code = 432) BASOPHILS RELATIVE PERCENT 1 % (BEAKER) (test code = 437) NEUTROPHILS ABSOLUTE COUNT 7.47 K/ L 1.78-5.38 H (BEAKER) (test code = 670) LYMPHOCYTES ABSOLUTE COUNT 1.67 K/ L 1.32-3.57 (BEAKER) (test code = 414) MONOCYTES ABSOLUTE COUNT (BEAKER) 1.35 K/ L 0.30-0.82 H (test code = 415) EOSINOPHILS ABSOLUTE COUNT 0.54 K/ L 0.04-0.54 (BEAKER) (test code = 416) BASOPHILS ABSOLUTE COUNT (BEAKER) 0.08 K/ L 0.01-0.08 (test code = 417) IMMATURE GRANULOCYTES-RELATIVE 0 % 0-1 PERCENT (BEAKER) (test code = 0058)
[2021-11-21] MEDS ORDERED: KETOROLAC 30 MG/ML INJ ONE (14:58)
[2021-11-21 15:22] LABS: Absolute Lymphocytes (CBC) 1.6 K/uL (0.7-4.9); Lymphocytes % 12.6 % (15.3-44.8); MPV 8.9 fL (7.6-11.3); RBC Red Blood Cell Count 5.29 M/uL (4.33-5.43)
[2021-11-21 15:34] LABS: Potassium 3.9 mmol/L (3.5-5.1)
--- NOTE | 2021-11-21 15:40 | RAD REPORT ---
EXAM DESCRIPTION: CT - Stone Protocol - 11/21/2021 3:14 pm CLINICAL HISTORY: Flank pain. Flank pain;Hematuria COMPARISON: Abdomen Pelvis Wo Contrast dated 08/25/2019 TECHNIQUE: Axial images were obtained without oral or IV contrast. Lack of contrast limits solid org an and vascular assessment. The [id number]-yh-qaht spans the entirety of the system partially obscuring uppermost abdomen and lung bases. Coronal reformatted images were obtained and reviewed. All CT scans are performed using dose optimization technique as appropriate and may include automated exposure control or mA/KV adjustment according to patient size. FINDINGS: The lower lung seymour are clear. Imaged portions of the liver and spleen show no suspicious findings on non-contrast imaging. The panc reas and adrenal glands are normal. No pathologic lymphadenopathy in the abdomen or pelvis. 5 mm stone is present in the mid right ureter at the level of the pelvic inlet with moderate right hy dronephrosis and hydroureter. No left-sided stone or hydronephrosis. No bowel obstruction, free air, free fluid or abscess. The appendix is not identified as a discrete s tructure, however, no secondary findings of appendicitis are identified. Small containing umbilical h ernia. No significant bony abnormality. IMPRESSION: 5 mm stone is present mid right ureter at the level of the pelvic inlet with moderate ri ght hydronephrosis and hydroureter.
[2021-11-21 15:45] LABS: Urine Blood 3+ (Negative); Urine Glucose Negative (Negative); Urine Protein Negative (Negative)
[2021-11-21 16:02] LABS: Urine Bacteria <20 /HPF (NONE SEEN)
[2021-11-21] MEDS ORDERED: CEFTRIAXONE 1000 MG/VIAL ONE (16:31)
--- NOTE | 2021-11-21 16:37 | ER ---
Nurse's Notes [facility] Name: Ryan Bassett Age: 66 yrs Sex: Male : 1955 Arrival Date: 11/21/2021 Time: 14:24 Bed 11 Private MD: Aakash Tilley V Diagnosis: Hydronephrosis with renal and ureteral calculous obstruction Presentation: 11/21 14:34 Chief complaint: Patient states: R flank pain with bloody urine for 1 day. No fever. ll1 Believes its another kidney stone. Coronavirus screen: Vaccine status: Patient reports receiving the 2nd dose of the covid vaccine. Client denies travel out of the [place] in the last 14 days. At this time, the client does not indicate any symptoms associated with coronavirus-19. Ebola Screen: Patient denies travel to an Ebola-affected area in the 21 days before illness onset. Initial Sepsis Screen: Does the patient meet any 2 criteria? No. Patient's initial sepsis screen is negative. Does the patient have a suspected source of infection? Yes: Dysuria/Frequency/Urgency/UTI. Risk Assessment: Do you want to hurt yourself or someone else? Patient reports no desire to harm self or others. Onset of symptoms was November 21, 2021. 14:34 Method Of Arrival: Ambulatory [facility] 14:34 Acuity: KAYCE 3 ll1 Historical: - Allergies: 14:35 No Known Allergies; ll1 - PMHx: 14:35 Chronic pain; Kidney stones; Prostate Cancer; ll1 - PSHx: 14:35 prostate removed; Lithotripsy; ll1 - Immunization history:: Client reports receiving the 2nd dose of the Covid vaccine, Flu vaccine is up to date. - Social history:: Smoking status: Patient denies any tobacco usage or history of. Screenin:48 Abuse screen: Denies threats or abuse. Nutritional screening: No deficits noted. ll3 Tuberculosis screening: No symptoms or risk factors identified. Fall Risk None identified. Assessment: 14:48 General: Appears in no apparent distress. uncomfortable, Behavior is calm, cooperative. ll3 Pain: Complains of pain in right low back Pain currently is 10 out of 10 on a pain scale. Neuro: Level of Consciousness is awake, alert, obeys commands, Oriented to person, place, time, situation. Cardiovascular: Patient's skin is warm and dry. Respiratory: Respiratory effort is even, unlabored, Respiratory pattern is regular, symmetrical. GI: Bowel sounds present X 4 quads. Abd is soft and non tender X 4 quads. : Denies burning with urination, inability to void, pain urinary frequency. Derm: Skin is pink, warm \T\ dry. 16:19 Reassessment: Patient appears in no apparent distress at this time. No changes from ll3 previously documented assessment. Patient and/or family updated on plan of care and expected duration. Pain level reassessed. Patient is alert, oriented x 3, equal unlabored respirations, skin warm/dry/pink. Vital Signs: 14:34 BP 185 / 97; Pulse 82; Resp 17; Temp 97.7; Pulse Ox 100% ; Weight 117.93 kg; Height 5 ll1 ft. 8 in. (172.72 cm); Pain 9/10; 16:19 BP 150 / 79; Pulse 77; Resp 16; Pulse Ox 99% on R/A; ll3 14:34 Body Mass Index 39.53 (117.93 kg, 172.72 cm) ll1 ED Course: 14:24 Patient arrived in ED. ds1 14:24 Aakash Tilley MD is Private Physician. ds1 14:35 Triage completed. ll1 14:36 Arm band placed on. ll1 14:39 Patrick Ervin, KRISTOFER is Primary Nurse. ll3 14:42 Connor Rodriguez PA is PHCP. jr8 14:42 Ravi Florez MD is Attending Physician. jr8 14:48 Patient has correct armband on for positive identification. Bed in low position. Call ll3 light in reach. Side rails up X 1. 15:13 Inserted saline lock: 22 gauge in right antecubital area, using aseptic technique. ll3 15:14 CT Stone Protocol In Process Unspecified. EDMS 17:18 No provider procedures requiring assistance completed. IV discontinued, intact, ll3 bleeding controlled, No redness/swelling at site. Pressure dressing applied. Administered Medications: 15:13 Drug: Ketorolac 15 mg Route: IVP; Site: right antecubital; ll3 15:46 Follow up: Response: No adverse reaction ll3 16:48 Drug: morphine 4 mg Route: IM; Site: right deltoid; ll3 17:19 Follow up: Response: No adverse reaction ll3 16:50 Drug: Zofran (Ondansetron) 4 mg Route: PO; ll3 17:19 Follow up: Response: No adverse reaction ll3 16:51 Drug: Rocephin (cefTRIAXone) 1 grams Route: IV; Rate: calculated rate; Site: right ll3 antecubital; 17:19 Follow up: Response: No adverse reaction ll3 Outcome: 16:37 Discharge ordered by MD. sanders 17:18 Discharged to home ambulatory. ll3 17:18 Condition: stable 17:18 Discharge instructions given to patient, family, Instructed on discharge instructions, follow up and referral plans. medication usage, Demonstrated understanding of instructions, follow-up care, medications, Prescriptions given X 4. 17:20 Patient left the ED. ll3 Signatures: Dispatcher [employer] EDMT Lucia Ventura dsConnor Carrasco PA PA jr8 Lewis, Lynsay, RN RN ll1 Patrick Ervin RN RN ll3
--- NOTE | 2021-11-21 16:38 | EDPHYS ---
Physician Documentation [facility] Name: Ryan Bassett Age: 66 yrs Sex: Male : 1955 Arrival Date: 11/21/2021 Time: 14:24 Bed 11 Private MD: Aakash Tilley V ED Physician Ravi Florez HPI: 11/21 16:31 This 66 yrs old Male presents to ER via Ambulatory with complaints of Possible Kidney jr8 Stone. 16:31 Onset: The symptoms/episode began/occurred acutely, today. Severity of pain: At its jr8 worst the pain was moderate in the emergency department the pain is unchanged. The patient has experienced similar episodes in the past, a few times. The patient has not recently seen a physician. This is a 66-year-old male patient that presented to the emergency room with complaints of right flank pain and hematuria. Patient stated that he has a history of kidney stones in the past and is concerned that he has another one. Denies any vomiting, diarrhea, fevers at this time.. Historical: - Allergies: 14:35 No Known Allergies; ll1 - PMHx: 14:35 Chronic pain; Kidney stones; Prostate Cancer; ll1 - PSHx: 14:35 prostate removed; Lithotripsy; ll1 - Immunization history:: Client reports receiving the 2nd dose of the Covid vaccine, Flu vaccine is up to date. - Social history:: Smoking status: Patient denies any tobacco usage or history of. ROS: 16:31 Constitutional: Negative for fever, chills, and weight loss. jr8 16:31 Back: Positive for flank pain, on the right. 16:31 : Positive for hematuria. 16:31 All other systems are negative. Exam: 16:31 Constitutional: This is a well developed, well nourished patient who is awake, alert, jr8 and in no acute distress. Cardiovascular: Regular rate and rhythm with a normal S1 and S2. No gallops, murmurs, or rubs. Normal PMI, no JVD. No pulse deficits. Respiratory: Lungs have equal breath sounds bilaterally, clear to auscultation and percussion. No rales, rhonchi or wheezes noted. No increased work of breathing, no retractions or nasal flaring. Skin: Warm, dry with normal turgor. Normal color with no rashes, no lesions, and no evidence of cellulitis. MS/ Extremity: Pulses equal, no cyanosis. Neurovascular intact. Full, normal range of motion. Neuro: Awake and alert, GCS 15, oriented to person, place, time, and situation. Cranial nerves II-XII grossly intact. Motor strength 5/5 in all extremities. Sensory grossly intact. 16:31 Back: No spinal tenderness. No costovertebral tenderness. Full range of motion. 16:31 Abdomen/GI: Inspection: obese Bowel sounds: active, all quadrants, Palpation: soft, in all quadrants, mild abdominal tenderness, in the anterior aspect of right lateral abdomen, mass, is not appreciated, rebound tenderness, is not appreciated, voluntary guarding, is not appreciated, involuntary guarding, is not appreciated, no appreciated organomegaly. Vital Signs: 14:34 BP 185 / 97; Pulse 82; Resp 17; Temp 97.7; Pulse Ox 100% ; Weight 117.93 kg; Height 5 ll1 ft. 8 in. (172.72 cm); Pain 9/10; 16:19 BP 150 / 79; Pulse 77; Resp 16; Pulse Ox 99% on R/A; ll3 14:34 Body Mass Index 39.53 (117.93 kg, 172.72 cm) ll1 MDM: 14:43 Patient medically screened. jr8 16:31 Data reviewed: vital signs, nurses notes, lab test result(s), radiologic studies, CT jr8 scan. Data interpreted: Pulse oximetry: on room air is 99 %. Interpretation: normal. Counseling: I had a detailed discussion with the patient and/or guardian regarding: the historical points, exam findings, and any diagnostic results supporting the discharge/admit diagnosis, lab results, radiology results, the need for outpatient follow up, a urologist, to return to the emergency department if symptoms worsen or persist or if there are any questions or concerns that arise at home. Response to treatment: the patient's symptoms have markedly improved after treatment. ED course: Patient hemodynamically stable and afebrile. Normal renal function. Remainder of labs stable. No bacteriuria or signs of septicemia. 5 mm stone right mid ureter with hydro present. Patient should be able to pass this based on previous history. Pain well controlled at this time and no other acute findings on physical exam. Close return precautions given to patient. Patient will go home on antibiotics prophylaxis along with pain meds and tamsulosin. 11/21 14:43 Order name: CBC with Diff; Complete Time: 15:36 jr8 11/21 14:43 Order name: Basic Metabolic Panel; Complete Time: 15:36 8 11/21 14:43 Order name: Urine Microscopic Only; Complete Time: 16:12 jr8 11/21 14:43 Order name: CT Stone Protocol; Complete Time: 16:02 8 11/21 15:45 Order name: Urine Dipstick-Ancillary; Complete Time: 16:02 EDMS 11/21 14:43 Order name: Urine Dipstick-Ancillary (obtain specimen); Complete Time: 15:46 8 11/21 14:43 Order name: IV; Complete Time: 15:13 Administered Medications: 15:13 Drug: Ketorolac 15 mg Route: IVP; Site: right antecubital; ll3 15:46 Follow up: Response: No adverse reaction ll3 16:48 Drug: morphine 4 mg Route: IM; Site: right deltoid; ll3 17:19 Follow up: Response: No adverse reaction ll3 16:50 Drug: Zofran (Ondansetron) 4 mg Route: PO; ll3 17:19 Follow up: Response: No adverse reaction ll3 16:51 Drug: Rocephin (cefTRIAXone) 1 grams Route: IV; Rate: calculated rate; Site: right ll3 antecubital; 17:19 Follow up: Response: No adverse reaction ll3 Disposition: 17:50 Co-signature as Attending Physician, Ravi Florez MD. rn Disposition Summary: 11/21/21 16:37 Discharge Ordered Location: Home [facility] Problem: new jr8 Symptoms: have improved jr8 Condition: Stable jr8 Diagnosis - Hydronephrosis with renal and ureteral calculous obstruction jr8 Followup: jr8 - With: Private Physician - When: 5 - 6 days - Reason: Recheck today's complaints, Continuance of care, Re-evaluation by your physician Discharge Instructions: - Discharge Summary Sheet jr8 - Kidney Stones jr8 - Hydronephrosis jr8 Forms: - Medication Reconciliation Form jr8 - Thank You Letter jr8 - Antibiotic Education jr8 - Prescription Opioid Use jr8 Prescriptions: - tamsulosin 0.4 mg Oral capsule - take 1 capsule by ORAL route Every night; 12 capsule; Refills: 0, Product jr8 Selection Permitted - Cipro 500 mg Oral Tablet - take 1 tablet by ORAL route every 12 hours for 5 days; 10 tablet; Refills: 0, jr8 Product Selection Permitted - Zofran 4 mg Oral Tablet - take 1 tablet by ORAL route every 12 hours As needed; 20 tablet; Refills: 0, jr8 Product Selection Permitted - Tylenol-Codeine #3 300 mg-30 mg Oral - take 2 tablet by ORAL route every 8 hours As needed; 20 tablet; Refills: 0, jr8 Product Selection Permitted Signatures: Dispatcher [employer] EDMS Ravi Florez MD MD rn Roszak, Josh, PA PA jr8 Radha Khoury RN RN ll1 Patrick Ervin RN RN ll3
[2021-11-21] MEDS ORDERED: ONDANSETRON 4 MG (ODT) TAB ONE (16:41)
[2021-11-21] MEDS ORDERED: MORPHINE 4 MG/ML SYR ONE (16:41)
[2021-11-21 17:33] VITALS: TEMP 97.7
[2021-11-21 17:34] VITALS: BP 150/79; O2SAT 99
== END 2021-11-21 17:20 | disposition home or self-care (01) ==
LOC: ER 14:21
DX: N13.2 Hydronephrosis with renal and ureteral calculous obstruction (principal); Z87.442 Personal history of urinary calculi
CPT/HCPCS: 36415; 74176; 76377; 80048; 81003; 81015; 85025; 96372; 96374; 96375; 99284

== ENCOUNTER 2022-11-24 15:35 | Inpatient (IN) | payer OTHER ==
--- OUTSIDE RECORDS SUMMARY | 2022-11-24 15:39 | XMS REPORT | Continuity of Care Document ---
:1955 Author Organization [facility] t Address [address] [place] [address] Care Team Providers Name Role Phone No, Pcp [facility] Primary Care Physician Unavailable Cee FORTUNE, Vineet Voss Attending Clinician [phone] Carlos Attending Clinician Unavailable Isabella Engel MD Attending Clinician Kaiser Valles Attending Clinician [phone] Ricardo Andersen MA Attending Clinician Unavailable Ryann Curry MD Attending Clinician Olive Candelario APRN Attending Clinician Cindy Burciaga MA Attending Clinician Unavailable Provider , Not In System Attending Clinician Unavailable Belem Morgan MD Attending Clinician SALVATORE FRANCES Attending Clinician Unavailable TEJA COYLE Attending Clinician Unavailable Carlos Admitting Clinician Unavailable ISABELLA ENGEL Admitting Clinician Unavailable TONG CANDELARIO Admitting Clinician Unavailable TEJA COYLE Admitting Clinician Unavailable Payers Payer Name Policy Type Policy Number Effective Date Expiration Date S ource MEDICARE B-[place]: [id number] 2021 APS 00:00:00 [id number] 2021 (MEDICARE 00:00:00 SUPPLEMENT) Problems Condition Condition Condition Status Onset Resolution Last Treating Co mments Source Name Details Category Date Date Treatment Clinician Date 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 3-04 st 00:00: Hospita 00 l 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 Osteoarthr 9-10 Or thope itis itis 00:00: dic 00 Sports Medicin e Pain of Pain of Problem Active Melvina right Right 9-10 [facility] shoulder Shoulder 00:00: dic joint Joint 00 Sports Medicin e Hematoma Hematoma Disease [facility] Perinephri Perinephri Disease Active [facility] c hematoma c hematoma 8-30 [facility] Acute Acute Disease Active [facility] blood loss blood loss 8-30 [facility] anemia anemia 00:00: Medical 00 Center ED ED Disease Active [facility] (erectile (erectile 2 st dysfunctio dysfunctio 00:00: Ho spita n) n) 00 l Prostate Prostate Disease Active [facility]o di CA CA 6 st 00:00: Hospita 00 l Prostate Prostate Disease Active [facility] di cancer cancer 04-03 st 00:00: Hospita 00 l Allergies, Adverse Reactions, Alerts This patient has no known allergies or adverse reactions. Family History Family Member Diagnosis Comments Start Date Stop Date Source Natural father Cancer [facility] Natural father Cancer [facility] mother [facility] Social History Social Habit Start Date Stop Date Quantity Comments Source History SDOH [facility] Dr[facility] History SDOH [facility] Alcohol Binge Medical Donta ter History SDOH [facility] Alcohol Comment Medical C enter History of Current smoker [facility] tobacco use [facility] Alcohol intake 2022-10-20 2022-10-20 Current [facility] 00:00:00 00:00:00 non-drinker of Hospital alcohol (finding) Tobacco Comment 2022-06-26 2022-06-26 1/4 can /day x 40 [facility] 00:00:00 00:00:00 years of Hospital smokeless tobacco ; quit 2014 Tobacco use and 2019-07-11 2019-07-[address] [facility] exposure 00:00:00 00:00:00 Medical Center History SDOH 2019-07-11 2019-07-11 1 TIMMY Mojica Alcohol Frequency 00:00:00 00:00:00 Medical Center Sex [birth year] [facility] 00:00:00 00:00:00 Hospital Smoking Status Start Date Stop Date Source Never Smoker [facility] Ex-smoker 2022-06-26 00:00:00 2022-06-26 [facility]:00:[facility] Medications Ordered Filled Start Stop Current Ordering Indication Dosage Frequency Signature Comments Components Source Medication Medication Date Date Medication? Clinician (SIG) Name Name anastrozole 2021-11- Yes [id number] 1mg Q7D Take 1 [facility] (Arimidex) 12-24 12-13 tablet (1 st 1 mg chemo 00:00: 05:59 mg total) H ospita tablet 00 :00 by mouth l once a week. sildenafiL 2021-11 Yes [id number] 100mg Take 1 [facility] (VIAGRA) 12-[address] 100 MG 00:00: (100 mg Hospita tablet 00 total) by l mouth as needed for erectile dysfunctio n. testosteron 2021-11- Yes [id number] 200mg Q1W Inject 1 [facility] e cypionate 2 06-08 mL (200 mg s t (DEPOTESTOT 00:00: 04:59 total) Hos amber ERONE 00 :00 into the l CYPIONATE) shoulder, 200 mg/mL thigh, or injection buttocks every 7 days for 180 days. testosteron 2021- No [id number] 200mg Q1W Inject 1 [facility] e cypionate 8 11-21 mL (200 mg s t (DEPOTESTOT 00:00: 05:59 total) Hos amber ERONE 00 :00 into the l CYPIONATE) shoulder, 200 mg/mL thigh, or injection buttocks every 7 days for 90 days. syringe Yes 1{each} Q14D 1 each Metho di with needle 6-[address] (BD Eclipse 00:00: (fourteen) [facility]) 3 00 days. l mL 23 x 1" syringe needle, 0 Yes 1{each} Q14D 1 each Metho di disp, 18 G 6- every 14 st (BD Regular 00:00: (fourteen) Hospita [place] 00 days. l [place]) 18 gauge x 1 1/2" needle testosteron 0 2022- No 200mg Q14D Inject 1 Method[facility] e cypionate 04-17 08-22 mL (200 mg s t (Depo-Testo 00:00: 00:00 total) Hos amber sterone) 00 :00 into the l 200 mg/mL shoulder, injection thigh, or buttocks every 14 (fourteen) days for 90 days. multivit-mi 0 Yes Method i n/folic/vit -21 st K/lycop 10:36: Hospita (ONE-A-DAY 35 l MEN'S MULTIVITAMI N ORAL) ascorbic 2021-0 Yes 1000mg QD Take 1,000 M ethodi acid, 3-[address] vitamin C, 16:37: mouth Hospit a (vitamin C) 08 daily. l 1000 MG tablet MELOXICAM 0 Yes 15mg Take 15 mg Me thodi ORAL 3-[address] 16:37: Hospita 08 l cranberry 2021-0 Yes [id number] Take Metho di fruit 3-04 30,[address] extract 16:37: by mouth. Hospi ta (CRANBERRY 08 l CONCENTRATE ORAL) multivit-mi 0 Yes Take by Met hodi n/folic/vit 3-[address] K/lycop 16:37: Hospita (ONE-A-DAY 08 l MEN'S 50 PLUS ORAL) ZINC ORAL 2021-0 Yes 50mg Take 50 mg Me thodi 3-[address] 16:37: Hospita 08 l cholecalcif 2021-0 Yes Take by Met rafaelai wili, 3-[address] vitamin D3, 16:37: Hospit a (VITAMIN D3 08 l ORAL) vitamin B 0 Yes Take by Metho di complex (B 3-[address] COMPLEX-VIT 16:37: Hospit a HERRERA B12 08 l ORAL) MAGNESIUM 2021-0 Yes Take by Metho di ORAL 3-[address] 16:37: Hospita 08 l meloxicam 2021- No 15mg Q24H Take 1 Metho di (Mobic) 15 01-13-04 tablet (15 st mg tablet 00:00: 04:59 mg total) Ho spita 00 :00 by mouth l daily as needed for moderate pain for up to 30 days. oxybutynin 2021- No 10mg Q24H Take 1 Meth manuel XL 01-13-04 tablet (10 st (Ditropan 00:00: 04:59 mg total) Ho spita XL) 10 MG 00 :00 by mouth l 24 hr daily as tablet needed (bladder spasms) for up to 30 days. phenazopyri 2021- No 100mg Q.[id number] Take 1 Methodi dine 01-[id number] (Pyridium) 00:00: 04:59 3D (100 mg Hos amber 100 MG 00 :00 total) by l tablet mouth 3 (three) times a day as needed (burning with urination) for up to 30 days. docusate 2021- No 100mg Q.5D Take 1 Metho di sodium 01-[address] (Colace) 00:00: 04:59 (100 mg Hospi ta 100 MG 00 :00 total) by l capsule mouth 2 (two) times a day as needed for constipati on for up to 30 days. traMADoL 2021- [place] [id number] 50mg Q6H Take 1 Metho di (ULTRAM) 50 01-13 03-10 tablet (50 s t mg tablet 00:00: 05:59 mg total) Ho spita 00 :00 by mouth l every 6 (six) hours as needed for moderate pain for up to 5 days .acute pain. levoFLOXaci 2021- No 750mg QD Take 1 Me thodi n -02 12-[address] (Levaquin) 00:00: 05:59 (750 mg Hos amber 750 MG 00 :00 total) by l tablet mouth daily for 3 days. levoFLOXaci 2021- No 750mg QD Take 1 Me thodi n -02 12-[address] (Levaquin) 00:00: 00:00 (750 mg Hos amber 750 MG 00 :00 total) by l tablet mouth daily for 3 days. oxybutynin 2021- No 10mg Q24H Take 1 Meth manuel XL 01-13-04 tablet (10 st (Ditropan 00:00: 00:00 mg total) Ho spita XL) 10 MG 00 :00 by mouth l 24 hr daily as tablet needed (bladder spasms) for up to 30 days. phenazopyri 2021- No 100mg Q.[id number] Take 1 Methodi dine 01-[id number] (Pyridium) 00:00: 00:00 3D (100 mg Hos amber 100 MG 00 :00 total) by l tablet mouth 3 (three) times a day as needed (burning with urination) for up [place] 30 [place] [id number] 50mg Q6H Take 1 Metho di (ULTRAM) 50 01-13 tablet (50 s t mg tablet 00:00: 00:00 mg total) Ho spita 00 :00 by mouth l every 6 (six) hours as needed for moderate pain for up to 5 days .acute pain. docusate 2021- No 100mg Q.5D Take 1 Metho di sodium 01-13-[address] (Colace) 00:00: 00:00 (100 mg Hospi ta 100 MG 00 :00 total) by l capsule mouth 2 (two) times a day as needed for constipati on for up to 30 days. docusate 0 2021- No 100mg Q.5D Take 1 Metho di sodium 01-13-[address] (Colace) 00:00: 00:00 (100 mg Hospi ta 100 MG 00 :00 total) by l capsule mouth 2 (two) times a day as needed for constipati on for up to 30 days. levoFLOXaci 2021- No 750mg QD Take 1 Me thodi n 01-13-[address] (Levaquin) 00:00: 00:00 (750 mg Hos amber 750 MG 00 :00 total) by l tablet mouth daily for 3 days. oxybutynin 2021- No 10mg Q24H Take 1 Meth manuel XL 01-13-04 tablet (10 st (Ditropan 00:00: 00:00 mg total) Ho spita XL) 10 MG 00 :00 by mouth l 24 hr daily as tablet needed (bladder spasms) for up to 30 days. phenazopyri 2021- No 100mg Q.[id number] Take 1 Methodi dine 01-13- [id number] tablet st (Pyridium) 00:00: 00:00 3D (100 mg Hos amber 100 MG 00 :00 total) by l tablet mouth 3 (three) times a day as needed (burning with urination) for up to 30 days. traMADoL 2021- No [id number] 50mg Q6H Take 1 Metho di (ULTRAM) 50 01-13- tablet (50 s t mg tablet 00:00: 00:00 mg total) Ho spita 00 :00 by mouth l every 6 (six) hours as needed for moderate pain for up to 5 days .acute pain. magnesium Yes [facility] 250 mg 1-17 st tablet 00:00: Hospita 00 l tramadol tramadol 2020-11 No tramadol A zalea 37.5 37.5 2-22 37.5 Orthope mg-acetamin mg-acetamin 00:00: mg-acetami dic ophen 325 ophen 325 00 nophen 325 Sports mg tablet mg tablet mg tablet Medicin TAKE ONE TAKE ONE TAKE ONE e TABLET BY TABLET BY TABLET BY MOUTH EVERY MOUTH EVERY MOUTH 6 HOURS 6 HOURS EVERY 6 NEEDED FOR NEEDED FOR HOURS PAIN PAIN NEEDED FOR PAIN tramadol tramadol 2020-11 No tramadol A zalea 37.5 37.5 2-22 37.5 Orthope mg-acetamin mg-acetamin 00:00: mg-acetami dic ophen 325 ophen 325 00 nophen 325 Sports mg tablet mg tablet mg tablet Medicin TAKE ONE TAKE ONE TAKE ONE e TABLET BY TABLET BY TABLET BY MOUTH EVERY MOUTH EVERY MOUTH 6 HOURS 6 HOURS EVERY 6 NEEDED FOR NEEDED FOR HOURS PAIN PAIN NEEDED FOR PAIN QUERCETIN 2020-11 Yes [facility] DIHYDRATE, 2-15 st BULK, MISC 00:00: Hospita 00 l vitamin B 2020-11 Yes [facility] complex-fol 2-15 st ic acid 0.4 00:00: Hospit a mg tablet 00 l gabapentin gabapentin No gabapentin Melvina 600 mg 600 mg 9-10 600 mg Orthope tablet tablet 00:00: tablet dic 00 Sports Medicin e cholecalcif Yes Method i wili, 4-01 st vitamin D3, 00:00: Hospit a (Vitamin 00 l D3) 25 mcg (1,000 unit) capsule ascorbic Yes 1000mg QD Take 1,[address] acid, 8-31 mg by [facility] vitamin C, 13:58: mouth Medica l (VITAMIN C) 00 daily. Cooks 1000 MG tablet docusate Yes 100mg QD Take [address] sodium 8-31 mg by [facility]ukes (COLACE) 13:58: mouth Medical 100 MG 00 daily. Cooks capsule gabapentin Yes 300mg QD Take [address] (NEURONTIN) 8-31 mg by [facility]ukes 300 MG 13:58: mouth Medical capsule 00 daily. Cooks mirabegron Yes 25mg QD Take [address] (MYRBETRIQ) 8-31 by mouth Luke s 25 mg Tb24 13:58: daily. Medic al ER tablet 00 Center oxybutynin Yes 10mg QD Take [address] (DITROPAN-X 8-31 by mouth Luke s L) 10 MG 24 13:58: daily. Medi raheem hr tablet 00 Center sulfamethox Yes 1{tbl} QD Take [address] azole-trime 8-31 tablet by Riley es thoprim 13:58: mouth Medical (BACTRIM 00 daily. Cooks DS) 800-160 mg per tablet tadalafil Yes 10mg QD Take [address] (CIALIS) 10 8-31 by mouth Luke s MG tablet 13:58: daily. Medica l 00 Center tamsulosin Yes .4mg QD Take 0.[address] (FLOMAX) 8-31 mg by [facility]ukes 0.4 mg Cap 13:58: mouth Medica l 24 hr 00 daily. Cooks capsule traMADol Yes 50mg Take [address] (ULTRAM) 50 8-31 by mouth Luke s mg tablet 13:58: every 6 Medic al 00 (six) Center hours as needed for Pain. MYRBETRIQ 2017-11- No 25mg QD Take 1 Metho di 25 mg 0-15 01-09 tablet (25 st tablet 00:00: 00:00 mg total) Hospi ta extended 00 :00 by mouth l release 24 daily. hr gabapentin 2021- No Method i (NEURONTIN) 06-24 st 300 mg 00:00: 00:00 Hospita capsule 00 :00 l CIALIS 5 mg 2021- No Metho di tablet 07-02 st 00:00: 00:00 Hospita 00 :00 l Mobic 15 mg Mobic 15 mg No 1 Q1D Mobic 15 Melvina tablet Take tablet Take mg tablet Orthope 1 tablet 1 tablet Take 1 dic every day every day tablet Spo rts by oral by oral every day Medi jack route with route with by oral e meals. meals. route with meals. acetaminoph acetaminoph No acetaminop Melvina en 300 en 300 hen 300 Orthope mg-codeine mg-codeine mg-codeine dic 30 mg 30 mg 30 mg Sports tablet TAKE tablet TAKE tablet Medicin 2 TABLETS 2 TABLETS TAKE 2 e BY MOUTH BY MOUTH TABLETS BY EVERY 8 EVERY 8 MOUTH HOURS HOURS EVERY 8 NEEDED FOR NEEDED FOR HOURS PAIN PAIN NEEDED FOR PAIN anastrozole anastrozole No anastrozol Melvina 1 mg tablet 1 mg tablet e 1 mg Orthope tablet dic Sports Medicin e ciprofloxac ciprofloxac No ciprofloxa Melvina in 500 mg in 500 mg jack 500 mg Orthope tablet TAKE tablet TAKE tablet dic 1 TABLET BY 1 TABLET BY TAKE 1 Sports MOUTH EVERY MOUTH EVERY TABLET BY Medicin 12 HOURS 12 HOURS MOUTH e FOR 5 DAYS FOR 5 DAYS EVERY 12 HOURS FOR 5 DAYS meloxicam meloxicam No meloxicam Melvina 15 mg 15 mg 15 mg Orthope tablet TAKE tablet TAKE tablet dic ONE TABLET ONE TABLET TAKE ONE Sports BY MOUTH BY MOUTH TABLET BY Me dicin DAILY DAILY MOUTH e DAILY sildenafil sildenafil No sildenafil Melvina 100 mg 100 mg 100 mg [facility] tablet TAKE tablet TAKE tablet dic ONE (1) ONE (1) TAKE ONE Sport s TABLET(S) TABLET(S) (1) Medic in BY MOUTH BY MOUTH TABLET(S) e NEEDED. NEEDED. BY MOUTH NEEDED. tamsulosin tamsulosin No tamsulosin Melvina 0.4 mg 0.4 mg 0.4 mg Orthope capsule capsule capsule dic TAKE 1 TAKE 1 TAKE 1 Sports CAPSULE BY CAPSULE BY CAPSULE BY Medicin MOUTH EVERY MOUTH EVERY MOUTH e NIGHT NIGHT EVERY NIGHT testosteron testosteron No testostero Melvina e cypionate e cypionate ne O rthope 200 mg/mL 200 mg/mL cypionate dic intramuscul intramuscul 200 mg/mL Sports ar oil ar oil intramuscu Medic in lar oil e tramadol 50 tramadol 50 No tramadol Melvina mg tablet mg tablet 50 mg Orth ope Take 1 Take 1 tablet dic tablet(s) tablet(s) Take 1 Spo rts by oral by oral tablet(s) Medi jack route every route every by oral e 4-6 hours 4-6 hours route as needed as needed every 4-6 for pain, for pain, hours as not to not to needed for exceed 8 exceed 8 pain, not tabs in 24 tabs in 24 to exceed hours hours 8 tabs in 24 hours Immunizations Ordered Filled Immunization Date Status Comments [facility] e Immunization Name Name influenza, influenza, 2022-08-26 Completed [facility] dic unspecified unspecified 00:00:00 Sports Medic ine formulation formulation PFIZER COVID-19 2021-08-17 Completed [facility] MRNA VACCINATION 00:00:00 [facility] influenza, influenza, 2021-08-12 Completed Melvina Orthope dic unspecified unspecified 00:00:00 Sports Medic ine formulation formulation PFIZER COVID-19 2021-01-26 Completed [facility] MRNA VACCINATION 00:00:00 [facility] PFIZER COVID-19 2021-01-05 Completed [facility] MRNA VACCINATION 00:00:00 Hospital Vital Signs Vital Name Observation Time Observation Value Comments Source Systolic blood 2022-01-13 21:55:00 144 mm[Hg] [facility] pressure Diastolic blood 2022-01-13 21:55:00 89 mm[Hg] [facility] pressure Heart rate 2022-01-13 21:55:00 74 /[facility] Body temperature 2022-01-13 21:55:00 36.56 Nellie [facility] Respiratory rate 2022-01-13 21:55:00 18 /min [facility] Oxygen saturation in 2022-01-13 21:55:00 96 /min [facility] Arterial blood by Pulse oximetry Body height 2022-01-13 16:19:00 172.7 cm [facility] Body weight 2022-01-13 16:19:00 121.519 kg [facility] BMI 2022-01-13 16:19:00 40.73 kg/m2 [facility] Procedures Procedure Date / Time Performing Clinician Source Performed TESTOSTERONE LEVEL, FREE 2022-10-20 15:49:00 [facility] AND TOTAL, MALE Shanika PSA, ULTRASENSITIVE 2022-10-20 15:49:00 [facility] ESTRADIOL LEVEL 2022-10-20 15:49:00 [facility] spital Shanika CBC WITH PLATELET AND 2022-10-20 15:49:00 [facility] DIFFERENTIAL [facility] TESTOSTERONE LEVEL, FREE 2022-06-26 14:24:00 [facility] AND TOTAL, MALE Shanika ESTRADIOL LEVEL 2022-06-26 14:24:00 [facility] spital Shanika CBC WITH PLATELET AND 2022-06-26 14:24:00 [facility] DIFFERENTIAL [facility] PSA, ULTRASENSITIVE 2022-06-26 14:24:00 [facility] XR, shoulder, 2 or more 2022-04-18 00:00:00 Manny antony [facility] TESTOSTERONE LEVEL, FREE 2022-03-23 15:33:00 MarenIsabella hayes [facility] AND TOTAL, MALE PROLACTIN LEVEL 2022-03-23 15:33:00 Isabella Engel Ho spital FOLLICLE STIMULATING 2022-03-23 15:33:00 TregoIsabella [facility] HORMONE LUTEINIZING HORMONE 2022-03-23 15:33:00 [facility] TESTOSTERONE LEVEL, FREE 2022-03-02 16:04:00 Isabella Engel [facility] AND TOTAL, MALE CBC WITH PLATELET AND 2022-03-02 16:04:00 [facility] DIFFERENTIAL ESTRADIOL LEVEL 2022-03-02 16:04:00 Isabella Engel spital PSA, ULTRASENSITIVE 2022-03-02 16:04:00 [facility] US RENAL 2022-02-06 14:31:19 [facility] spital SURGICAL PATHOLOGY 2022-01-13 19:49:00 [facility] REQUEST ID AN ELECTIVE 2022-01-13 19:27:43 Ryann Curry [facility] SUPRAGLOTTIC AIRWAY CYSTO, URETEROSCOPY 2022-01-13 19:04:00 [facility] CALCULI ANALYSIS WITH 2022-01-13 18:48:00 [facility] PHOTO URINE CULTURE 2022-01-09 16:26:00 [facility] ospital HC COMPLETE BLD COUNT 2022-01-09 16:26:00 [facility] W/AUTO DIFF COMPREHENSIVE METABOLIC 2022-01-09 16:26:00 [facility] PANEL ESTIMATED GFR 2022-01-09 16:26:00 [facility]EM[facility] A1C 2022-01-09 16:26:00 [facility] ospital ECG PRE/POST OP 2022-01-09 16:21:41 [facility] ospital COVID-19 QUALITATIVE 2022-01-09 15:32:00 [facility] RT-PCR URINALYSIS SCREEN AND 2022-01-09 15:32:00 [facility] MICROSCOPY, WITH REFLEX TO CULTURE CT RENAL STONE PROTOCOL 2021-12-19 17:09:23 [facility] Shanika URINE CULTURE 2021-12-12 23:43:00 [facility] spital Shanika URINALYSIS SCREEN AND 2021-12-12 23:43:00 [facility] MICROSCOPY, WITH REFLEX [facility] TO CULTURE POC URINALYSIS DIPSTICK 2021-12-12 20:46:00 [facility] Shanika Plan of Care Planned Activity Planned Date Details Comments Source Future Scheduled 2022-11-24 Hepatitis C screening [facility] Test 15:37:34 (procedure) [code = [id number]] Future Scheduled 2022-11-24 COLONOSCOPY SCREENING [facility] Test 15:37:34 [code = COLONOSCOPY SCREENING] Future Scheduled 2022-11-24 SHINGLES VACCINES (1 Met [facility] Test 15:37:34 of 2) [code = SHINGLES VACCINES (1 of 2)] Future Scheduled 2022-11-24 65+ PNEUMOCOCCAL [facility] Test 15:37:34 VACCINE (1 - PCV) [code = 65+ PNEUMOCOCCAL VACCINE (1 - PCV)] Future Scheduled 2022-11-24 COVID-19 VACCINE (4 - [facility] Test 15:37:34 Booster for Pfizer series) [code = COVID-19 VACCINE (4 - Booster for Pfizer series)] Future Scheduled 2022-11-24 INFLUENZA VACCINE [facility] Test 15:37:34 [code = INFLUENZA VACCINE] Encounters Start End Encounter Admission Attending Care Care Encounter Source Date/Time Date/Time Type Type Clinicians Facility Department ID 2022-10-20 2022-10-26 Office Cee 1.2.840.1 [id number] Methodi 09:45:00 18:17:12 Visit Vineet 89877.1.1 470 [facility] 3.430.2.7 Hospit a .3.240923 l .8 2022-10-26 2022-10-26 Outpatient FOG[facility]wards [facility] 543 [id number] Melvina 00:00:00 00:00:00 _Rox [id number] Orth ope dic Sports Medicin e 2022-10-26 2022-10-26 Odilon Aragon [facility] [place] - Ortho [id number] Melvina 00:00:00 00:00:00 Andree Burgos MD: [id number] FOG_Ofc dic [facility] Spo [facility] [place], [place] [address] , Ph. [id number] 2022-10-20 2022-10-20 Travel 1.2.840.1 [id number] Methodi 00:00:00 00:00:[address] 3.430.2.7 0.2.7.3.698 Ho spita .3.668633 084.8 l .8 2022-10-20 2022-10-20 Outpatient [facility] [id number] [place] 00:00:00 00:00:[address] 2022-08-11 2022-08-11 Orders Maren, 1.2.840.1 [id number] Methodi 00:00:00 00:00:00 Only Isabella [address]20.1.[address] 3.430.2.7 Hospit a .3.009571 l .8 2022-06-26 2022-06-26 Office Cee, 1.2.840.1 [id number] Methodi 09:00:00 09:20:06 Visit Vineet 87377.1.[address] Shanika 3.430.2.7 Hospit a .3.013587 l .8 2022-06-26 2022-06-26 Travel 1.2.840.1 1.2.357.404 [id number] Methodi 00:00:00 00:00:[address] 3.430.2.7 0.2.7.3.698 Ho spita .3.802603 084.8 l .8 2022-06-26 2022-06-26 Outpatient [facility] [id number] [place] 00:00:00 00:00:[address] 2022-04-19 2022-04-19 Outpatient [facility] A[facility]M 543 [id number] Melvina 00:00:00 00:00:00 _Rox [id number] Orth ope dic Sports Medicin e 2022-04-18 2022-04-18 Outpatient [facility] AOSM 543 [id number] Melvina 07:49:00 07:49:00 _Rox [id number] Orth ope dic Sports Medicin e 2022-04-18 2022-04-18 [facility] [place] - Ortho Melvina 00:00:00 00:00:00 Andree Valles MD: [id number], [facility], [place] [address] , Ph. [phone] 2022-04-18 2022-04-18 Outpatient Hai, AOJOEY AOSM [id number] 00:00:00 00:00:00 [facility] [id number] 2022-04-17 2022-04-17 Telephone Maren, 1.2.840.1 [id number] Methodi 00:00:00 00:00:[address] 3.430.2.7 Hospit a .3.924457 l .8 2022-04-17 2022-04-17 Orders Maren, 1.2.840.1 [id number] Methodi 00:00:00 00:00:00 Only Isabella 27424.1.[address] 3.430.2.7 Hospit a .3.362874 l .8 2022-04-14 2022-04-14 Outpatient [facility]wards AOSM AOSM 543 [id number] Melvina 10:27:00 10:27:00 _Rox [id number] Orth ope dic Sports Medicin e 2022-04-14 2022-04-14 Outpatient [facility]OG_Edwards AOSM AOSM 543 [id number] Melvina 10:27:00 10:27:00 _Rox [id number] Orth ope dic Sports Medicin e 2022-03-23 2022-03-23 Office Maern, 1.2.840.1 [id number] Methodi 09:45:00 10:55:44 Visit Isabella 03677.1.[address] 3.430.2.7 Hospit a .3.873795 l .8 2022-03-23 2022-03-23 Travel 1.2.840.1 1.2.664.037 [id number] Methodi 00:00:00 00:00:[address] 3.430.2.7 0.2.7.3.698 Ho spita .3.778696 084.8 l .8 2022-03-23 2022-03-23 Outpatient [facility] [id number] [place] 00:00:00 00:00:00 ISABELLA [address] 2022-03-02 2022-03-02 Office Maren, 1.2.840.1 [id number] Methodi 10:30:00 11:39:24 Visit Isabella 32618.1.[address] 3.430.2.7 Hospit a .3.981051 l .8 2022-03-02 2022-03-02 Travel 1.2.840.1 1.2.253.980 [id number] Methodi 00:00:00 00:00:[address] 3.430.2.7 0.2.7.3.698 Ho spita .3.219649 084.8 l .8 2022-03-02 2022-03-02 Outpatient [facility] [id number] [place] 00:00:00 00:00:[address] ISABELLA [address] 2022-02-06 2022-02-06 Travel 1.2.840.1 1.2.266.643 [id number] Methodi 00:00:00 00:00:[address] 3.430.2.7 0.2.7.3.698 Ho spita .3.591820 084.8 l .8 2022-02-06 2022-02-06 Outpatient [facility] [id number] 00:00:00 00:00:00 ISABELLA [address] 2022-01-17 2022-01-17 Orders Stroughter, 1.2.840.1 [id number] Methodi 00:00:00 00:00:00 Only Donaysha 45956.1.[address] 3.430.2.7 Hospit a .3.929513 l .8 2022-01-13 2022-01-13 [facility], 1.2.840.1 [id number] 00011 08159 Methodi 10:04:00 16:36:00 Encounter Isabella 04652.1.[address] 3.430.2.7 Hospit a .3.720544 l .8 2022-01-13 2022-01-13 Surgery Maren, 1.2.840.1 [id number] 7811 Methodi 12:48:00 14:33:[address] 3.430.2.7 Hospit a .3.707489 l .8 2022-01-13 2022-01-13 Anesthesia Ryann CurryJalyn 1.2.840.1 104 [id number] Methodi 13:00:00 14:07:00 Event Daniella Olive 51046.1.[address] 3.430.2.7 Hospit a .3.671751 l .8 2022-01-13 2022-01-13 Outpatient [facility] 137 [id number] [address] 00:00:00 00:00:00 ISABELLA [address] 2022-01-12 2022-01-12 Telephone Burciaga, 1.2.840.1 [id number] 2100 [id number] Methodi 00:00:00 00:00:[address] 3.430.2.7 Hospit a .3.762987 l .8 2022-01-09 2022-01-09 Pre-Admiss Maren, 1.2.840.1 [id number] Methodi 09:00:00 10:00:00 ion Isabella 77924.1.[address] Testing 3.430.2.7 Hospit a .3.472446 l .8 2022-01-09 2022-01-09 Travel 1.2.840.1 1.2.516.577 7936 [id number] Methodi 00:00:00 00:00:[address] 3.430.2.7 0.2.7.3.698 Ho spita .3.879544 084.8 l .8 2022-01-09 2022-01-09 Outpatient [facility] [id number] [address] 00:00:00 00:00:00 ISABELLA [address] 2021-12-19 2021-12-19 Outpatient [facility] [id number] [address] 00:00:00 00:00:[address] 2021-12-12 2021-12-12 Lab Provider, Not In System 1.2.840.1 [id number] Methodi 17:45:00 17:50:00 Belem Morgan [address]5541.1.[address] 3.430.2.7 Hospit a .3.327936 l .8 2021-12-12 2021-12-12 Office Cee, 1.2.840.1 [id number] 75302 Methodi 14:30:00 14:45:00 Visit Vineet 15396.1.[address] Shanika 3.430.2.7 Hospit a .3.601805 l .8 2021-12-12 2021-12-12 Travel 1.2.840.1 1.2.403.873 2852 185314 Methodi 00:00:00 00:00:[address] 3.430.2.7 0.2.7.3.698 Ho spita .3.531463 084.8 l .8 2021-12-12 2021-12-12 Outpatient [facility] [id number] [address] 00:00:00 00:00:00 BELEM 875 Method i 2021-12-12 2021-12-12 Outpatient [facility] [id number] [address] 00:00:00 00:00:[address] 2021-08-17 2021-08-17 Outpatient [facility] [id number] [address] 00:00:00 00:00:[address] 2021-01-26 2021-01-26 Outpatient YVROSE, [facility] [id number] [address] 00:00:00 00:00:00 SALVATORE mistry 2021-01-05 2021-01-05 Outpatient [facility] [id number] [address] 00:00:00 00:00:[address] 2021-01-05 2021-01-05 Outpatient MAREN [facility] [id number] [address] [place] [address] 00:00:00 00:00:00 ISABELLA [address] Results Test Description Test Time Test Comments Results Result Comments Source Testosterone level, free and total, male 2022-10-26 15:10:00 Test Item Value Reference Range Interpretation Comme nts Testosterone (test code = 1184 ng/dL 264-916 H Ad ult male reference interval 2986-8) is based on a p opulation ofhealthy nonob jose males (BMI <30) between 19 and 39 [address]al. JCEM 2017,102;1161-1 173. PMID: 26190166. Testosterone, free (test 23.1 pg/mL 6.6-18.1 H code = 2991-8) JOSE (test code = JOSE) Performed at: 01 - [facility] [address] [id number] Director: Kareem Ortiz MD, Phone: [phone] at: 02 - [facility] [address] [id number] Director: Chiara Vela MD, Phone: [phone] Lab Interpretation (test Abnormal code = 62699-8) [facility] with platelet and [id number] 15:10:00 Test Item Value Reference Range Interpretation Comments WBC (test code = See_Comment [Automated 4980-2) message] The system which generated this result transmit vesta reference range : 3.4 - 10.8 x10E3/uL. The reference range was not used to interpret this result as normal/abnormal . RBC (test code = See_Comment [Automated 442-8) message] The system which generated this result transmit vesta reference range : 4.14 - 5.80 x10E6/uL. The reference range was not used to interpret this result as normal/abnormal . HGB (test code = 15.6 g/dL 13.0-17.7 718-7) HCT (test code = 46.9 % 37.5-51.0 4544-3) MCV (test code = 84 fL 79-97 787-2) MCH (test code = 27.9 pg 26.6-33.0 785-6) MCHC (test code = 33.3 g/dL 31.5-35.7 786-4) RDW (test code = 13.9 % 11.6-15.4 788-0) Platelet count See_Comment [Automated (test code = 777-3) message] The system which generated this result transmit vesta reference range : 150 - 450 x10E3/uL. The reference range was not used to interpret this result as normal/abnormal . Neutrophils (test 60 % Not Estab. code = 770-8) Lymphocytes (test 22 % Not Estab. code = 736-9) Monocytes (test 11 % Not Estab. code = 5905-5) Eosinophils (test 6 % Not Estab. code = 713-8) Basophils (test 1 % Not Estab. code = 706-2) Neutrophils, See_Comment [Automated absolute (test code message] The = 751-8) system which generated this result transmit vesta reference range : 1.4 - 7.0 x10E3/uL. The reference range was not used to interpret this result as normal/abnormal . Lymphocytes, See_Comment [Automated absolute (test code message] The = 731-0) system which generated this result transmit vesta reference range : 0.7 - 3.1 x10E3/uL. The reference range was not used to interpret this result as normal/abnormal . Monocytes, absolute See_Comment [Automa vesta (test code = 742-7) message] The system which generated this result transmit vesta reference range : 0.1 - 0.9 x10E3/uL. The reference range was not used to interpret this result as normal/abnormal . Eosinophils, See_Comment [Automated absolute (test code message] The = 271-2) system which generated this result transmit vesta reference range : 0.0 - 0.4 x10E3/uL. The reference range was not used to interpret this result as normal/abnormal . Basophils, absolute See_Comment [Automa vesta (test code = 704-7) message] The system which generated this result transmit vesta reference range : 0.0 - 0.2 x10E3/uL. The reference range was not used to interpret this result as normal/abnormal . Immature 0 % Not Estab. granulocytes (test code = 44621-2) Immature See_Comment [Automated granulocytes, message] The absolute (test code system w [facility] = 78688-1) generated this result transmit vesta reference range : 0.0 - 0.1 x10E3/uL. The reference range was not used to interpret this result as normal/abnormal . JOSE (test code = Performed at: 01 [facility]) - [address] [id number] Director: Kareem Ortiz MD, Phone: [phone] [facility] [id number] 15:10:00 Test Item Value Reference Range Interpretation Comments Estradiol (test code 66.2 pg/mL 7.6-42.6 H Ruddy E CLIA = 2243-4) methodology JOSE (test code = JOSE) Performed at: - [address] [id number] Director: Kareem Ortiz MD, Phone: [phone] Lab Interpretation Abnormal (test code = 01330-2) [facility], [id number] 15:10:00 Test Item Value Reference Interpretation Comments Range PSA, <0.006 0.000-4.000 Ruddy ECLIA ultrasensitive methodology.A ccording to (test code = the [place] ological 47320-1) Association, Se rum PSA shoulddecrease and remain at undetectable levels after radicalprostate ctomy. The AUA defines bio chemical recurrence as a n initialPSA valu e 0.200 ng/mL or greate r followed by a subsequentconfi rmatory PSA value 0.200 ng/mL or greater.Values obtained with different assay methods or kits cannot be usedinterchange ably. Results cannot be interpreted as absolute evidenceof the presence or absence of m alignant disease. JOSE (test code = Performed at: [facility]) - [address] [id number] Director: Kareem Ortiz MD, Phone: [phone] [facility] HospitalProlactin [id number] 13:29:00 Test Item Value Reference Range Interpretation Comments Prolactin (test code = 12.6 ng/mL 4.0-15.2 2842-3) JOSE (test code = JOSE) Performed at: - [address] [id number] Director: Kareem Ortiz MD, Phone: [phone] [facility] HospitalFollicle stimulating [id number] 13:29:00 Test Item Value Reference Range Interpretation Comments Follicle See_Comment [Automated stimulating hormone message] The (test code = system which 66308-6) generated this result transmit vesta reference range : 1.5 - 12.4 mIU/ mL. The reference range was not u sed to interpret th is result as normal/abnormal . JOSE (test code = Performed at: JOSE) - [address] [id number] Director: Kareem Ortiz MD, Phone: [phone] [facility] HospitalLuteinizing [id number] 13:29:00 Test Item Value Reference Range Interpretation Comments Luteinizing hormone See_Comment [Automa vesta (test code = message] The 77693-5) system which generated this result transmit vesta reference range : 1.7 - 8.6 mIU/m L. The reference range was not u sed to interpret th is result as normal/abnormal . JOSE (test code = Performed at: JOSE) - [employer] [id number] Director: Kareem Ortiz MD, Phone: [phone] [facility] [id number] 18:25:57 Test Item Value Reference Range Interpretation Comments Case number (test code [id number] = [id number]) Surgical pathology See link below for PDF report (test code = Lab Report 2255) Result status (test This is Final Report code = 5881951) for [id number] [facility] (test code = JOSE) [id number] Ureteral Stone [facility] analysis with [id number] 15:56:00 Test Item Value Reference Range Interpretation Comments Calculi mass (test see comment code = 3154-2) Calculi descrption see comment (test code = 62626-0) Calculi composition see comment (test code = 9795-6) EER calculi (stone) see comment Calculi (Stone) analysis and photo Analysis with Photo (test code = ARUP test code 34564-2) Calculi Mass 72 mg - - - - - - - - - - - - - - - - - - - - - - - - - - - - - -Calculi Description See Note Specimen consis ts of one sellers calculu s. The total weigh t is 72 mg. - - - - - - - - - - - - - - - - - - - - - - - - - - - - - - Calculi Composition See Note Calculi compose d primarily of:60 % calcium oxalate dihydrate, and4 0% calcium phospha te (hydroxy- and carbonate- apat ite). INTERPRETIVE INFORMATION: Ca lculi (Stone) analysi s Calculi are the products of physiological processes that yield crystalline compounds in a matrix of biolo gical compounds and b lood. Matrix componen ts are not reporte d. The clinically significant crystalline components identified in calculi specime ns are reported. G ross description may not be consistent w ith composition determined by F TIR analysis. - - - - - - - - - - - - - - - - - - - - - - - - - - - - - - EER Calculi (Stone) Analysis and Ph leroy See Note Access [facility] Enhanced Report using the link below: -Direct access: [email or web address] ===== ===== ==== JOSE (test code = HCL-12-4311-[employer] JOSE) ght Ureteral Stone [facility] Pre/Post [id number] 13:20:01 Test Item Value Reference Range Interpretation Comments Ventricular rate (test code = 253) Atrial rate (test code = 255) ID interval (test code = 266) QRSD interval (test code = 260) QT interval (test code = 264) QTC interval (test code = 265) P axis 1 (test code = 267) QRS axis 1 (test code = 268) T wave axis (test code = 270) EKG impression (test code Normal sinus = 273) rhythm-Electronicall y Signed By Clarence Lorenz MD ([id number]) on 01/10/2022 7:19:59 AM [facility] [id number] 17:40:00 Test Item Value Reference Range Interpretation Comments Urine culture (test SEE COMMENT Bacteriu senthil screen code = 1067596) negative. Darian SotoARS-CoV-2 (COVID-19) RNA [Presence] in Respiratory specimen by MONTSERRAT with probe [id number] 15:17:39 Test Item Value Reference Range Interpretation Comments SARS coronavirus RNA [Presence] Not detected in Isolate by MONTSERRAT with probe detection (test code = 57749-2) Whether patient is employed in a Unknown healthcare setting (test code = 75201-5) Whether the patient has symptoms Unknown related to condition of interest (test code = 83794-0) Whether the patient was Unknown hospitalized for condition of interest (test code = 64017-0) Whether the patient was admitted Unknown to intensive care unit (ICU) for condition of interest (test code = 09499-5) Whether patient resides in a Unknown congregate care setting (test code = 27396-2) status (test code = Unknown 37682-1) Date and time of symptom onset Unknown (test code = 09294-8) SVITLANA AMANDARS-CoV-2 (COVID-19) RNA [Presence] in Respiratory specimen by MONTSERRAT with probe [id number] 15:17:39 Test Item Value Reference Range Interpretation Comments SARS-CoV-2 (COVID-19) RNA Not detected [Presence] in Respiratory specimen by MONTSERRAT with probe detection (test code = 98850-7) Whether patient is employed in a Unknown healthcare setting (test code = 85184-4) Whether the patient has symptoms Unknown related to condition of interest (test code = 89075-8) Whether the patient was Unknown hospitalized for condition of interest (test code = 96238-0) Whether the patient was admitted Unknown to intensive care unit (ICU) for condition of interest (test code = 28682-7) Whether patient resides in a Unknown congregate care setting (test code = 05931-1) status (test code = Unknown 66433-6) Date and time of symptom onset Unknown (test code = 34027-0) [facility] urinalysis [id number] 20:46:00 Test Item Value Reference Range Interpretation Comments Color urine, POC (test Yellow code = 0383798) Clarity urine, POC (test Cloudy code = 6189891) Glucose urine, POC (test Negative Negative code = 5947874) Bilirubin urine, POC Negative Negative (test code = 8720475) Ketones urine, POC (test Trace Negative A code = 0280313) Specific gravity urine, 1.005-1.030 POC (test code = 2427104) Blood urine, POC (test Moderate Negative A code = 1348919) pH urine, POC (test code See_Comment [A utomated message] = 7842655) The system [facility] h generated this result transmitted ref erence range: 5.0, 5.5 , 6.0, 6.5, 7.0, 7.5, 8.0, 8.5. The refere nce range was not u sed to interpret this result as normal/abnor mal. Protein urine, POC (test Negative Negative code = 0821419) Urobilinogen urine, POC <2.0 See_Comment [Au tomated message] (test code = 6540989) The sy stem which generated this result transmitted ref erence range: <=2.0. T he reference range was not used to int erpret this result as normal/abnormal . Nitrite urine, POC (test Negative Negative code = 4980917) Leukocyte esterase Negative Negative urine, POC (test code = 2558269) Lab Interpretation (test Abnormal code = 09646-8) [facility] HospitalHEMOGLOBIN AND [id number] 12:09:00 Test Item Value Reference Range Interpretation Comments HEMOGLOBIN (BEAKER) (test code = 9.2 GM/DL 13.7-17.5 L 410) HEMATOCRIT (BEAKER) (test code = 28.1 % 40.1-51.0 L 411) [id number] 07:56:00 Test Item Value Reference Range Interpretation Comments PHOSPHORUS (BEAKER) (test code = 2.7 mg/dL 2.3-4.7 604) [id number] 07:56:00 Test Item Value Reference Range Interpretation Comments MAGNESIUM (BEAKER) (test code = 1.9 mg/dL 1.6-2.6 627) BASIC METABOLIC [id number] 07:56:00 Test Item Value Reference Range Interpretation [...] APPLICABLE FOR DIALYSIS PATIEN TS. HEMOGLOBIN AND [id number] 07:02:00 Test Item Value Reference Range Interpretation Comments HEMOGLOBIN (BEAKER) (test code = 9.2 GM/DL 13.7-17.5 L 410) HEMATOCRIT (BEAKER) (test code = 28.2 % 40.1-51.0 L 411) HEMOGLOBIN AND [id number] 00:35:00 Test Item Value Reference Range Interpretation Comments HEMOGLOBIN (BEAKER) (test code = 8.8 GM/DL 13.7-17.5 L 410) HEMATOCRIT (BEAKER) (test code = 26.1 % 40.1-51.0 L 411) HEMOGLOBIN AND [id number] 16:41:00 Test Item Value Reference Range Interpretation Comments HEMOGLOBIN (BEAKER) (test code = 9.7 GM/DL 13.7-17.5 L 410) HEMATOCRIT (BEAKER) (test code = 29.9 % 40.1-51.0 L 411) CALCIUM, [id number] 09:28:00 Test Item Value Reference Range Interpretation Comments CALCIUM IONIZED (BEAKER) (test 1.17 mmol/L 1.12-1.27 code = 698) PH, BLOOD (BEAKER) (test code = 7.47 1810) CBC W/PLT COUNT & AUTO [id number] 09:26:00 Test Item Value Reference Range Interpretation [...] PERCENT (BEAKER) (test code = 2801) POCT-GLUCOSE [id number] 06:09:00 Test Item Value Reference Range Interpretation Comments POC-GLUCOSE METER 94 mg/dL 70-[address] [facility] [address] (BEAKER) (test code = [place] [address] 1558) URINALYSIS W/ REFLEX URINE [id number] 04:41:00 Test Item Value Reference Range Interpretation [...] /LPF = 514) SOURCE(BEAKER) (test code = 2795) HEPATIC FUNCTION [id number] 03:58:00 Test Item Value Reference Range Interpretation [...] = 12 U/L 6-55 347) BASIC METABOLIC [id number] 03:58:00 Test Item Value Reference Range Interpretation [...] S NOT APPLICABLE FOR DIALYSIS PATIEN TS. [id number] 03:58:00 Test Item Value Reference Range Interpretation Comments MAGNESIUM (BEAKER) (test code = 2.0 mg/dL 1.6-2.6 627) [id number] 03:58:00 Test Item Value Reference Range Interpretation Comments PHOSPHORUS (BEAKER) (test code = 2.5 mg/dL 2.3-4.7 604) [id number] 03:30:00 Test Item Value Reference Range Interpretation [...] thrombosis and/or pulmonary embolus.HIGH RISK: Target INR is 2.5-3.5 for patients wiht mechanical heart valves.CBC W/PLT COUNT & AUTO [id number] 03:13:00 Test Item Value Reference Range Interpretation [...]
[2022-11-24 17:47] LABS: Specific Gravity 1.025 (1.005-1.030); Urine Bacteria None Seen /HPF (<20); Urine Bilirubin NEGATIVE (Negative); Urine Blood Negative (Negative); Urine Clarity Clear (Clear); Urine Color Yellow (Yellow); Urine Crystals Unidentified Few /HPF (None Seen); Urine Glucose NEGATIVE (Negative); Urine Mucus 1+ /HPF (None Seen); Urine Protein TRACE (Negative); Urine Urobilinogen Normal (Normal)
[2022-11-24] MEDS: ATORVASTATIN 80 MG TAB PO SCH (20:51)
[2022-11-25 07:21] LABS: Absolute Lymphocytes (CBC) 1.4 K/uL (0.7-4.9); Hematocrit 47.9 % (39.6-49.0); Lymphocytes % 13.9 % (15.3-44.8); MCV 84.6 fL (80-100); MPV 8.6 fL (7.6-11.3); RBC Red Blood Cell Count 5.67 M/uL (4.33-5.43)
[2022-11-25 07:45] LABS: Albumin 3.3 g/dL (3.4-5.0); Magnesium 2.3 mg/dL (1.6-2.4); Potassium 3.9 mmol/L (3.5-5.1); Prealbumin 22.1 mg/dL (20-40)
[2022-11-25] MEDS: ASPIRIN EC 81 MG TAB PO SCH (08:16)
[2022-11-25] MEDS: CLOPIDOGREL 75 MG TABLET PO SCH (08:16)
[2022-11-25] MEDS ORDERED: ACETAMINOPHEN 325 MG TABLET PO PRN (10:45)
[2022-11-25] MEDS ORDERED: SENOSIDES 8.6 MG TAB PO PRN (10:45)
[2022-11-25] MEDS: lisinopriL 5 MG TAB PO SCH (11:55)
--- NOTE | 2022-11-25 14:25 | P.HP ---
Certification for Inpatient Patient admitted to: Inpatient With expected LOS: >2 Midnights Patient will require the following post-hospital care: Rehabilitation Practitioner: I am a practitioner with admitting privileges, knowledge of patient current condition, hospital course, and medical plan of care. Services: Services provided to patient in accordance with Admission requirements found in Title 42 Section 412.3 of the Code of Federal Regulations Patient History Date of Service: 11/25/22 Reason for admission: L SIDE BODY WEAKNESS History of Present Illness: MR FALK HAS HAD NO MAJOR ISSUES EXCEPT FOR MOD OBESITY AND ON FIRST DAY OF CRUISE HE HAD L HEMIPARSIS NAD HAD TO BE FLOWN TO [facility]. THEY FOUND R THALAMIC STROKE, LACUNAR INF AND PFO. HE THEN CAME CLOSER TO HOME TO THIS HOSPITAL FOR REHAB. Allergies No Known Allergies Allergy (Verified 08/28/19 11:00) Home Medications: Aspirin [Aspirin EC 81 MG] 81 mg PO DAILY 11/25/22 Atorvastatin Calcium [Lipitor] 80 mg PO BEDTIME 11/25/22 Clopidogrel Bisulfate [Plavix*] 75 mg PO DAILY 11/25/22 - Past Medical/Surgical History Has patient received pneumonia vaccine in the past: No Diabetic: No -: chronic back pain r/t PARS defect -: kidney stones -: prostate cancer -: appy -: rt knee sx - Family History Mother -: Heart disease Father -: Cancer - Social History Smoking Status: Former smoker Alcohol use: No CD- Drugs: No Caffeine use: Yes Place of Residence: Home Review of Systems 10-point ROS is otherwise unremarkable General: Weakness Physical Examination - Vital Signs Temperature: 97.8 F Blood Pressure: 150/87 Pulse: 84 Respirations: 16 Pulse Ox (%): 97 - Physical Exam General: Alert, In no apparent distress HEENT: Atraumatic, PERRLA, Mucous membr. moist/pink, EOMI, Sclerae nonicteric Neck: Supple, 2+ carotid pulse no bruit, No LAD, Without JVD or thyroid abnormality Respiratory: Clear to auscultation bilaterally, Normal air movement Cardiovascular: Regular rate/rhythm, Normal S1 S2 Gastrointestinal: Normal bowel sounds, No tenderness Musculoskeletal: No tenderness Integumentary: No rashes Neurological: Normal speech, Abnormal strength (L HEMIPARESIS. 3/5. ) Lymphatics: No axilla or inguinal lymphadenopathy - Studies Laboratory Data (last 24 hrs) 11/25/22 07:08: Sodium 138, Potassium 3.9, BUN 12, Creatinine 0.76, Glucose 99, Magnesium 2.3 11/25/22 07:08: WBC 9.90, Hgb 15.8, Hct 47.9, Plt Count 189 Assessment and Plan - Problems (Diagnosis) (1) Lacunar infarct, acute Current Visit: Yes Status: Acute Plan: THIS CAN BE MICROVASCULAR FROM AGING AND OBESITY. HE NEVER HAD HTN BEFORE. PFO WILL NOT GIVE RISE TO INFACT BUT EMBOLI. (2) PFO (patent foramen ovale) Current Visit: Yes Status: Acute Plan: ABOVE THIS IS THERE FOR ALL HIS LIFE AND IS NOT THE CAUSE OF THIS STROKE. CONSULT CARDIOLOGY. (3) HTN (hypertension) Current Visit: Yes Status: Acute Plan: NEW. WILL FU ON LISINOPRIL. - Advance Directives Does patient have a Living Will: No Does patient have a Durable POA for Healthcare: No
[2022-11-25 15:32] VITALS: BMI 38.0
[2022-11-25] MEDS: ENOXAPARIN 40 MG/0.4 ML SQ SCH (16:05)
[2022-11-25] MEDS: ATORVASTATIN 80 MG TAB PO SCH (20:14)
[2022-11-26] MEDS ORDERED: ENOXAPARIN 30 MG/0.3 ML SQ SCH (08:00)
[2022-11-26] MEDS: lisinopriL 5 MG TAB PO SCH (08:04)
[2022-11-26] MEDS: ASPIRIN EC 81 MG TAB PO SCH (08:04)
[2022-11-26] MEDS: CLOPIDOGREL 75 MG TABLET PO SCH (08:04)
--- NOTE | 2022-11-26 15:33 | P.PN ---
Subjective Date of Service: 11/26/22 Chief Complaint: L SIDE BODY WEAKNESS Subjective: Improving HE IS DOING PT DAILY FEELS WELL. NO PAIN Review of Systems 10-point ROS is otherwise unremarkable Physical Examination - Vital Signs Temperature: 98.8 F Blood Pressure: 136/83 Pulse: 82 Respirations: 17 Pulse Ox (%): 96 - Physical Exam General: Mild distress, Obese HEENT: Atraumatic, PERRLA, EOMI Neck: Supple, JVD not distended Respiratory: Clear to auscultation bilaterally, Normal air movement Cardiovascular: Regular rate/rhythm, Normal S1 S2 Gastrointestinal: Normal bowel sounds, No tenderness Musculoskeletal: No tenderness Integumentary: No rashes Neurological: Normal speech, Abnormal strength (MILD HEMIPARESIS L) Lymphatics: No axilla or inguinal lymphadenopathy - Studies Microbiology Data (last 24 hrs): 11/24/22 15:52 Clean Catch Urine [place] Count - Final No growth. 11/24/22 15:52 Clean Catch Urine - Final No growth. Medications List Reviewed: Yes Assessment And Plan - Current Problems (Diagnosis) (1) Lacunar infarct, acute Current Visit: Yes Status: Acute Plan: THIS CAN BE MICROVASCULAR FROM AGING AND OBESITY. HE NEVER HAD HTN BEFORE. PFO WILL NOT GIVE RISE TO INFACT BUT EMBOLI. (2) PFO (patent foramen ovale) Current Visit: Yes Status: Acute Plan: ABOVE THIS IS THERE FOR ALL HIS LIFE AND IS NOT THE CAUSE OF THIS STROKE. CONSULT CARDIOLOGY. (3) HTN (hypertension) Current Visit: Yes Status: Acute Plan: NEW. WILL FU ON LISINOPRIL.
[2022-11-26] MEDS: ENOXAPARIN 40 MG/0.4 ML SQ SCH (16:13)
[2022-11-26] MEDS ORDERED: BISACODYL 10 MG RECTAL SUPP PR PRN (16:42)
[2022-11-26] MEDS: DOCUSATE NA/SENNA CONC 1 TAB PO PRN (19:24)
[2022-11-26] MEDS: ATORVASTATIN 80 MG TAB PO SCH (19:25)
[2022-11-27] MEDS: lisinopriL 5 MG TAB PO SCH (07:45)
[2022-11-27] MEDS: ASPIRIN EC 81 MG TAB PO SCH (07:45)
[2022-11-27] MEDS: CLOPIDOGREL 75 MG TABLET PO SCH (07:45)
[2022-11-27] MEDS: ENOXAPARIN 40 MG/0.4 ML SQ SCH (16:08)
--- NOTE | 2022-11-27 17:44 | P.PN ---
Subjective Date of Service: 11/27/22 Chief Complaint: L SIDE BODY WEAKNESS Subjective: Improving HE IS DOING PT DAILY FEELS WELL. NO PAIN FEELS BETTER DAILY. Review of Systems 10-point ROS is otherwise unremarkable General: Weakness Physical Examination - Vital Signs Temperature: 97.6 F Blood Pressure: 126/83 Pulse: 98 Respirations: 18 Pulse Ox (%): 96 - Physical Exam General: Oriented x3, Mild distress HEENT: Atraumatic, PERRLA, EOMI Neck: Supple, JVD not distended Respiratory: Clear to auscultation bilaterally, Normal air movement Cardiovascular: Regular rate/rhythm, Normal S1 S2 Gastrointestinal: Normal bowel sounds, No tenderness Musculoskeletal: No tenderness Integumentary: No rashes Neurological: Normal speech, Normal tone, Normal affect Lymphatics: No axilla or inguinal lymphadenopathy - Studies Medications List Reviewed: Yes Assessment And Plan - Current Problems (Diagnosis) (1) Lacunar infarct, acute Current Visit: Yes Status: Acute Plan: THIS CAN BE MICROVASCULAR FROM AGING AND OBESITY. HE NEVER HAD HTN BEFORE. PFO WILL NOT GIVE RISE TO INFACT BUT EMBOLI. (2) PFO (patent foramen ovale) Current Visit: Yes Status: Acute Plan: ABOVE THIS IS THERE FOR ALL HIS LIFE AND IS NOT THE CAUSE OF THIS STROKE. CONSULT CARDIOLOGY. (3) HTN (hypertension) Current Visit: Yes Status: Acute Plan: NEW. WILL FU ON LISINOPRIL.
--- NOTE | 2022-11-27 18:20 | CON ---
Date of Consultation: 11/27/2022 Reason For Consultation: Presence of PFO, evaluate the need for closure after acute stroke. History Of Present Illness: This is a 67-year-old male with past medical history of dyslipidemia, pr esented with arm and leg weakness. He was on the cruise and then he was evaluated in the hospital in [place] and then came over. He said he had workup, which was all negative except the presence of PF O. Past Medical History: As outlined above in the HPI. Medications: Refer to reconciliation sheet for detailed list. Allergies: NO KNOWN DRUG ALLERGIES. Family History: No premature coronary artery disease or cancer. Social History: He does not smoke or drink. Does not use any drugs. Review of Systems: All systems reviewed and they were negative except for mentioned in HPI. Physical Examination: Vital Signs: Temperature is 97.6, pulse 98, breathing at 18, blood pressure 126/83, saturating 96% o n room air. General: Pleasant middle-aged male, in no apparent distress. Head and Neck: Pupils are equal, reactive to light. Intact eye movements. No JVD. No cervical lym phadenopathy. Neck is supple. Thyroid is not enlarged. Lungs: Clear to auscultation bilaterally. No rhonchi, rales, or crackles. No accessory muscle use. Heart: Regular rate and rhythm. No extra sounds. Abdomen: Soft, nontender. Bowel sounds positive. No organomegaly. No masses or hernia. No rigidi ty or rebound. Extremities: No edema, clubbing, or cyanosis. Intact pulses. Skin: No rash noted. Neurological: Alert, awake, oriented x3. No acute focal deficits appreciated. Investigations: BUN 12, creatinine 0.76, and hemoglobin 15.8. Assessment And Recommendations: 1.Acute cerebrovascular accident. As reported by the patient and the family, all workup was done at [place] and it was negative, except that he has a patent foramen ovale, which appears to be a patent foramen ovale with the high risk features as per the report. No evidence of atrial fibrillation. N o history of atrial fibrillation. Patient otherwise is doing well. He is in rehab now. My recommen dations will be the following: Keep on laboratory monitor while in rehab to evaluate the presence of atrial fibrillation as most common cause of this stroke would be paroxysmal atrial fibrillation or hy pertension. Given the fact that his blood pressure is controlled, monitor on telemetry and once the patient is released to plan for full month event monitor. If after that and all the workup for the c erebrovascular accident is negative, then we will plan for patent foramen ovale closure. 2.Presence of patent foramen ovale. This is a normal variant in 20% to 25% of population. However, it can cause cryptogenic stroke. If no other causes of stroke were found, then a patent foramen ova le closure would be indicated, which we will decide after having the patient wear an event monitor fo r a full month. In the meanwhile, I recommend full anticoagulation if unless it is otherwise contrai ndicated as per Neurology. SR/MODL Voice ID: [id number] Report ID: [id number]
[2022-11-27] MEDS: MELATONIN 3 MG TABLET PO PRN (19:51)
[2022-11-27] MEDS: ATORVASTATIN 80 MG TAB PO SCH (19:51)
--- NOTE | 2022-11-27 21:02 | PN ---
Date of Progress Note: 11/27/2022 Time Of Service: 12:00 p.m. Subjective: Mr. Bassett is doing well. Reports feeling pretty good about his recovery so far of his left-sided weakness, involves leg and arm, and lesser extent face with numbness. No new complaints. Review of Systems: No fevers or chills, nausea, vomiting. Does report some cramping in the legs, and we will start bacl ofen along with magnesium for that. Otherwise negative on systems review. Physical Examination: Vital Signs: Blood pressure 126/83, pulse up to 98, respiratory rate 16, temperature 97.6, oxygen sa turation 96%. Weight 250 pounds, height 5 feet 8 inches, BMI 38.0. General: Mr. Bassett is resting comfortably. He is in no significant distress. He is normocephalic , atraumatic. Sclerae anicteric. Oropharynx is pink and moist. Neck: Supple. Chest: Clear. Heart: Regular. Extremities: Show no edema or cyanosis. Neurological: In terms of his stroke-like symptoms, he has some mild left face, arm, and leg involve ment with numbness with good excursions and in the space and at least around 4/5 proximally and dista lly in the left upper and lower extremity compared to the right side. Sensation slightly decreased o n the left compared to right side. Otherwise in terms of his gait, he was able to ambulate with a ro lling walker with minimum assistance but has emphasis placed on his upright posture. Laboratory Studies: White blood cell count 9.9, hemoglobin 15.8, platelets 189. Chemistries, all no rmal. His pre-albumin 22.1, albumin 3.3. Urinalysis shows 5-10 red blood cells, trace budding yeast , and total protein trace elevated. COVID-19 test was negative. Imaging: No new imaging. Medications: Tylenol 650 every 6 hours, aspirin 81 mg daily, Lipitor 80 mg at bedtime, baclofen 5 mg daily, Dulcolax suppository 10 per rectum as needed, Plavix 75 mg daily, Lovenox 40 mg subcutaneousl y daily, Prinivil 2.5 mg daily, magnesium oxide 400 mg daily, melatonin 3 mg at bedtime, Senokot-S 8. 6 mg daily for constipation. Current Functional Status: Currently, Mr. Bassett is able to ambulate 50 feet twice, 75 feet once, 1 20 feet once with minimal assistance using a rolling walker. Did require some cuing for upright post ure while ambulating. He has ability to do qfu-de-iuvne transfers and is with contact guard assistan ce. Again, verbal cuing required, supine to sit transfers with contact guard assistance. He did whe elchair mobilization with left upper extremity coordination to improve strength on that side. He did have speech therapy evaluation and had dysphagia education and patient education done by speech path ologist. Progress Towards Rehabilitation Goals: He is making good progress overall with his physical and occu pational therapy. His ability to improve strength on that left upper and lower extremity which was a ffected by his right thalamic and posterior limb of the internal capsule lacunar stroke. Assessment And Plan: Mr. Bassett is a 67-year-old patient with a right thalamic posterior internal c apsule lacunar stroke with left-sided symptoms of weakness, numbness, leg and arm and also face and n ot involving his swallowing significantly. He does have a PFO, which is likely long-standing and not likely to be the etiology of this stroke. 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 He does have hypertension. He does have risk for deep vein thrombosis, he is treated for that. He does have constipation, also treated with Senokot for that. He is on Prinivil now 2.5 mg twice daily and has had blood pressures in the good range around 120s up to 130s and systolic 70s to 80s. Plan: 1.Continue physical, occupational, and speech therapy. 2.Continue management of hypertension, risk of DVT as noted above. Also PFO was evaluated by the [facility] and determined that he will have some monitoring done and no procedures will be sche duled at this point. Comorbidities Impacting His Rehabilitation Process: At this point, he does not have any comorbiditie s negatively impacting his rehabilitation. His PFO has been there a long time, and he does have risk factors for stroke which is hypertension. His obesity is BMI of 38. He is working well with physic al therapy. He has DVT prophylaxis on board and he does have constipation and insomnia and those are managed well. LB/MODL Voice ID: [id number] Report ID: [id number]
[2022-11-27] MEDS ORDERED: SIMETHICONE 80 MG TAB PO PRN (21:59)
[2022-11-28] MEDS: lisinopriL 5 MG TAB PO SCH (08:54)
[2022-11-28] MEDS: ASPIRIN EC 81 MG TAB PO SCH (08:54)
[2022-11-28] MEDS: CLOPIDOGREL 75 MG TABLET PO SCH (08:54)
[2022-11-28] MEDS: BACLOFEN 10 MG TAB PO SCH (08:55)
[2022-11-28] MEDS: MAGNESIUM OXIDE 400 MG TAB PO SCH (08:55)
--- NOTE | 2022-11-28 10:17 | HP ---
Date of Admission: 11/24/2022 Time Of Service: 11:30 a.m. Chief Complaint: Had a stroke and left-sided weakness. History Of Present Illness: Mr. Bassett is a 67-year-old right-handed patient with hypertension, obesity, prostate cancer, arthritis, hypertension, who was on a cruise ship when he got up, went to the bathroom, and fell to the ground with left-sided weakness. He was brought back by [facility] to [facility] in [place] on the . There, he had weakness, ataxia, dysarthria, and had weakness on the left side. Blood pressure 151/83. His workup revealed mild narrowing of the right MCA third branch and there was acute lacunar infarct in the lateral margin of the right thalamus and medium margin of posterior wall of the right internal capsule and there were also chronic ischemic changes seen. EKG showed sinus rhythm with left ventricular hypertrophy. Blood work did show normal hemoglobin and hematocrit. His LDL cholesterol elevated at 140. Creatine kinase elevated at 474. His 2D echo showed a positive bubble study revealing patent foramen ovale. It was untreated at the hospital. He was placed on aspirin, Plavix, Eliquis 2.5 mg bid for DVT prophylaxis. He did have an evaluation by Physical and Occupational Therapy for left-sided weakness that is leg and arm paresis. The patient said, at the time of the stroke, it was very dense, unable to move the left arm and leg, but he has recovered, he says, overall to about 25% of his normal level of functioning. He has multiple active comorbid conditions that are uncontrolled and has increased risk of further strokes and myocardial infarction along with the PFO being a source of the stroke. Given his complicated medical history and acute stroke requiring aggressive inpatient rehabilitation, it is determined he is a more appropriate candidate for inpatient therapy versus outpatient therapy versus nursing home. It should be known, he also has started anastrozole due to elevated estradiol levels and he is taking testosterone injections, this being treated for a prostate cancer. Past Medical History: Prostate cancer, obesity, untreated hypertension, and arthritis. Past Surgical History: Prostatectomy in 2017. Allergies: NO KNOWN DRUG ALLERGIES. Current Medications: Tylenol 650 every 6 hours as needed, aspirin 81 mg daily, Lipitor 80 mg at bedtime, Plavix 75 mg daily, Lovenox 40 mg subcutaneously daily, Prinivil 2.5 mg daily, melatonin 3 mg at bedtime, Senokot-S 8.6 mg daily as needed for constipation. Imaging Studies: Brain MRI showed an acute lacunar infarct in the lateral margin of the right thalamus and medial margin of the posterior wall of the right internal capsule. There were matching FLAIR signal abnormalities there. No associated hemorrhage or mass effect seen. There are chronic changes as outlined. Laboratory Studies: White blood cell count 9.9, hemoglobin 15.8, platelets 189. Chemistries all normal. Sodium 138, potassium 3.9, creatinine 0.76. His prealbumin is 22.1, albumin 3.3. Urinalysis shows 5-10 red blood cells, trace budding yeast, and trace protein. COVID-19 test is negative. Review of Systems: Mr. Bassett reports no recent fevers, chills, nausea, vomiting, myalgias, arthralgias, rash, headache, weight change, psychiatric complaints, gastrointestinal, or genitourinary issues. Physical Examination: Vital Signs: Blood pressure 150/87, pulse 84, respiratory rate 16, temperature 97.8, oxygen saturation 97%, weight 256 pounds. General: Mr. Bassett is sitting in a chair in his room. He is in no acute distress. HEENT: He is normocephalic, atraumatic. Sclerae are anicteric. Oropharynx is pink and moist. Neck: Supple. Chest: Clear. Heart: Regular. Extremities: Show no clubbing, cyanosis, or edema. Neurological: He is alert and oriented to person, place, time, and situation. Has no expressive or receptive aphasias. No obvious cranial nerve deficits involving his face and cranial nerves. In terms of motor examination, the left upper and lower extremities, he is 4/5 proximally and distally; on the right side, 5/5 proximally and distally. On the left, sensation is decreased in upper and lower extremities compared to the right side. Reflexes are symmetric, but depressed in upper and lower extremities. Coordination intact in upper and lower extremities. In terms of gait, he is able to ambulate 18 feet with moderate assistance using a rolling walker. Current Level Of Functioning: Currently, he posterior propel a wheelchair 250 feet with his bilateral lower extremities, did take some rest breaks, did multiple sit to stand transfers with minimum assistance using a rolling walker, did stand and pivot transfers with minimum assistance as well. Performs supine to sit transfers with contact guard assistance. With gait, he ambulate 18 feet, 27 feet, and 20 feet with moderate assistance using a rolling walker. Did have to repeat cues and emphasize proper placement of his feet and proper mechanics. Rehabilitation And Medical Assessment And Plan: His rehabilitation impairment category is 01 stroke. His rehabilitation impairment group is left body involvement and right brain ischemia. Etiologic diagnosis: Lacunar infarct in lateral margin of the right thalamus, medial margin of the right posterior wall, right internal capsule. His active comorbidities, arthritis, ataxia, dysarthria, hypertension, left- sided weakness, and PFO patent foramina ovale, dyslipidemia, prostate cancer. Plan: 1. He will have physical, occupational, and speech therapy 3.5 hours 5 of 7 days. 2. His comorbid conditions as outlined above will be aggressively addressed including his hypertension and dyslipidemia. His dysarthria will be addressed with physical therapy, left-sided weakness again addressed with physical and occupational therapy. He is placed on DVT risk reduction with Lovenox 40 mg subcutaneously daily, especially given the PFO. Active comorbidities present on admission: 1. He has a patent king ovale that is not addressed surgically. The engineering consultant service will be consulted. Likely, they will not do anything acutely, but in perhaps 4-6 weeks after his stroke. 2. Given the risk of PFO, he will be placed on Lovenox, which is already done and as need be sequential compression devices will be used, especially if there is more difficulty moving the left leg. 3. His prostate cancer not typically aggressive and requiring immediate attention, will be addressed as he sees the oncologist. 4. His hypertension will be addressed and he is on Prinivil for that. 5. His dyslipidemia addressed with high-dose statin. Impact of comorbids: At this point, his PFO is the limiting factor. Hypertension will be addressed, dyslipidemia will be addressed. Rehabilitation Specific Plan: Again, he will have 3.5 hours of physical therapy a day 5 of 7 days to improve his gait, coordination, balance, dressing upper and lower body with goals of becoming independent with all of those and ambulating over 250 feet with independence or modified independence using a rolling walker. He has a good understanding of his admission to the inpatient rehabilitation unit. He has a great potential to improve and return to complete level of independence. He will have physical, occupational, and speech therapy. As need be, he will have nutrition services. He will have addressed the possibility of depression with psychiatric services or antidepressants and his primary care physician, Dr. Tilley, is following him while in the unit. Given the complexity of the patient's conditions, that is his medical conditions and his acute stroke, it is determined that he would not do well in a lower level of care such as nursing home for his reputation. Barriers to discharge: At this point no significant barriers to his discharge. Estimated Length Of Stay: Around 14 days. Disposition: Expected to be home. Prognosis: Good. Rehabilitation Goals: 1. Become independent with upper and lower body dressing and footwear. 2. Independent with transfers from bed to chair to toilet to shower. 3. Ambulate household distances independently and 250 feet independently. 4. Up and down 10 steps independently. I acknowledge that I personally performed a full physical examination on patient, Ryan Bassett, within 24 hours of his admission to rehabilitation unit and I have determined that he is able to tolerate the course of treatment as outlined above. A detailed individualized plan for him will be outlined by hospital day 4 based on the preadmission screen history and physical and the therapeutic evaluations. HERNANDO/MARIANNA Voice ID: [id number] HANNA
[2022-11-28] MEDS: ENOXAPARIN 40 MG/0.4 ML SQ SCH (17:39)
[2022-11-28] MEDS: ATORVASTATIN 80 MG TAB PO SCH (19:52)
[2022-11-28] MEDS: MELATONIN 3 MG TABLET PO PRN (19:53)
--- NOTE | 2022-11-28 21:59 | P.PN ---
Subjective Date of Service: 11/28/22 Chief Complaint: L SIDE BODY WEAKNESS Subjective: Improving HE IS DOING PT DAILY FEELS WELL. NO PAIN FEELS BETTER DAILY. Review of Systems 10-point ROS is otherwise unremarkable General: Weakness Physical Examination - Vital Signs Temperature: 99.0 F Blood Pressure: 144/63 Pulse: 86 Respirations: 18 Pulse Ox (%): 95 - Physical Exam General: Alert, In no apparent distress, Obese HEENT: Atraumatic, PERRLA, EOMI Neck: Supple, JVD not distended Respiratory: Clear to auscultation bilaterally, Normal air movement Cardiovascular: Regular rate/rhythm, Normal S1 S2 Gastrointestinal: Normal bowel sounds, No tenderness Musculoskeletal: No tenderness Integumentary: No rashes Neurological: Normal speech, Normal tone, Normal affect Lymphatics: No axilla or inguinal lymphadenopathy - Studies Medications List Reviewed: Yes Assessment And Plan - Current Problems (Diagnosis) (1) Lacunar infarct, acute Current Visit: Yes Status: Acute Plan: THIS CAN BE MICROVASCULAR FROM AGING AND OBESITY. HE NEVER HAD HTN BEFORE. PFO WILL NOT GIVE RISE TO INFACT BUT EMBOLI. CONT PT CONT PLAVIX. (2) PFO (patent foramen ovale) Current Visit: Yes Status: Acute Plan: ABOVE THIS IS THERE FOR ALL HIS LIFE AND IS NOT THE CAUSE OF THIS STROKE. CONSULT CARDIOLOGY. (3) HTN (hypertension) Current Visit: Yes Status: Acute Plan: NEW. WILL FU ON LISINOPRIL.
--- NOTE | 2022-11-28 22:13 | PN ---
Subjective: Mr. Bassett is doing very good. He is happy with his improvement in his left-sided weak ness from his stroke. He has no new complaints. Review of Systems: No fevers, chills, nausea, or vomiting. Myalgias on the left side are improving. Otherwise, negativ e. Physical Examination: Vital Signs: Blood pressure 136/72, pulse 83, respiratory rate 16, temperature is 97.7, and oxygen s aturation 95%. General: Mr. Bassett is making good progress. He is in a wheelchair, wheeling himself back and fort h in the gym. He is in no acute distress. HEENT: He is normocephalic, atraumatic. Sclerae anicteric. Oropharynx pink and moist. Neck: Supple. Chest: Clear. Heart: Regular. Extremities: As noted, his supple left-sided weakness is still there, but improving and it is involv ing arm and leg more than face. Laboratory Studies: No new laboratory studies. X-ray/imaging: No new x-ray imaging. Medications: Have not changed compared to yesterday. He is still on aspirin and Plavix for stroke r isk reduction and Lovenox for DVT risk reduction. He takes Prinivil for his hypertension and Senokot -S for constipation. Current Level Of Functioning: Currently, he did gait training covering 250 feet twice, 120 feet twic e with contact guard assistance using a rolling walker. Progress Towards Rehabilitation Goals: He is making excellent progress towards rehabilitation goals of becoming independent with upper and lower body dressing, transferring, toileting and ambulating ov er 500 feet with modified independence. Assessment: Mr. Bassett is a 67-year-old patient with a right thalamic and posterior internal capsul e lacunar stroke with some left-sided weakness and numbness of the arm and leg and mildly involving t he face. He does have also a patent foramen ovale. However, the etiology of his stroke is not likel y to be a patent foramen ovale. He does have hypertension, risk of deep vein thrombosis, constipatio n, and risk of depression. Plan: 1.Continue aggressive physical, occupational, and speech therapy. 2.Continue aspirin and Plavix for reducing stroke risk. Continue with DVT prophylaxis and the [facility] ologist did evaluate him for his PFO and determined that he does not require any acute intervention a nd that will be addressed after his discharge. Comorbidities That Continue To Impact Rehabilitation Process: At this point, there are no significan t comorbidities that negatively impact his rehabilitation process. LB/MODL Voice ID: [id number] Report ID: [id number]
[2022-11-29] MEDS: BACLOFEN 10 MG TAB PO SCH (07:14)
[2022-11-29] MEDS: lisinopriL 5 MG TAB PO SCH (07:15)
[2022-11-29] MEDS: CLOPIDOGREL 75 MG TABLET PO SCH (07:16)
[2022-11-29] MEDS: ASPIRIN EC 81 MG TAB PO SCH (07:16)
[2022-11-29] MEDS: MAGNESIUM OXIDE 400 MG TAB PO SCH (07:16)
[2022-11-29] MEDS: ENOXAPARIN 40 MG/0.4 ML SQ SCH (17:49)
--- NOTE | 2022-11-29 17:53 | P.PN ---
Subjective Date of Service: 11/29/22 Chief Complaint: L SIDE BODY WEAKNESS Subjective: Improving HE IS DOING PT DAILY FEELS WELL. NO PAIN FEELS BETTER DAILY. STABLE, NO NEW ISSUES. Physical Examination - Vital Signs Temperature: 97.4 F Blood Pressure: 140/77 Pulse: 82 Respirations: 16 Pulse Ox (%): 95 - Physical Exam General: Alert, In no apparent distress, Other (WALKS WELL WITH WALKER.) HEENT: Atraumatic, PERRLA, EOMI Neck: Supple, JVD not distended Respiratory: Clear to auscultation bilaterally, Normal air movement Cardiovascular: Regular rate/rhythm, Normal S1 S2 Gastrointestinal: Normal bowel sounds, No tenderness Musculoskeletal: No tenderness Integumentary: No rashes Neurological: Normal speech, Normal tone, Normal affect Lymphatics: No axilla or inguinal lymphadenopathy - Studies Medications List Reviewed: Yes Assessment And Plan - Current Problems (Diagnosis) (1) Lacunar infarct, acute Current Visit: Yes Status: Acute Plan: THIS CAN BE MICROVASCULAR FROM AGING AND OBESITY. HE NEVER HAD HTN BEFORE. PFO WILL NOT GIVE RISE TO INFACT BUT EMBOLI. CONT PT CONT PLAVIX. NO CHANGES. CONT MEDS. (2) PFO (patent foramen ovale) Current Visit: Yes Status: Acute Plan: ABOVE THIS IS THERE FOR ALL HIS LIFE AND IS NOT THE CAUSE OF THIS STROKE. CONSULT CARDIOLOGY. (3) HTN (hypertension) Current Visit: Yes Status: Acute Plan: NEW. WILL FU ON LISINOPRIL.
[2022-11-29] MEDS: MELATONIN 3 MG TABLET PO PRN (19:30)
[2022-11-29] MEDS: DOCUSATE NA/SENNA CONC 1 TAB PO PRN (19:31)
[2022-11-29] MEDS: ATORVASTATIN 80 MG TAB PO SCH (19:31)
--- NOTE | 2022-11-29 21:27 | PN ---
Date of Progress Note: 11/29/2022 Xxuo-Em-Dnnn Progress Visit Note Time Of Service: 1:30 p.m. Subjective: Mr. Bassett is doing well. He denies any significant or new complaints. He has improve ment in his left-sided weakness. Review of Systems: No fevers, chills, nausea, vomiting, myalgias, arthralgias, rash, headache, or weight change. Physical Examination: Vital Signs: Blood pressure 136/70, pulse 81, respiratory rate 16, temperature 98.2, oxygen saturati on 96%. General: Mr. Bassett is doing well with therapy, ambulating with a rolling walker. Chest: Clear. Abdomen: Soft. Extremities: No clubbing or cyanosis. He does have a mild left-sided weakness, which is improving. Laboratory Studies: No new laboratory studies. X-ray/imaging: No new x-ray or imaging. Medications: Unchanged. He continues aspirin 81 mg and Plavix 75 mg for stroke risk reduction, Tyle nol 650 mg for pain, Lovenox 40 mg subcutaneously for DVT risk reduction. He does have baclofen 5 mg daily for muscle spasms. Prinivil 2.5 mg daily for hypertension. Melatonin 3 mg daily for insomnia , Senokot-S 2 at bedtime for constipation, and he did have some gas-like pain and has simethicone 80 mg up to 3 times daily as needed. Current Functional Status: Currently, he is at standby assistance. Ambulates throughout the hallway with a rolling walker. He was able to do putt-putt golf while in the rehab unit. He did ambulate 1 75 feet, another 225 feet once, and 175 feet was twice with contact guard assistance using a rolling walker. He ascended and descended 15 steps once and then another 25 steps once with bilateral handra ils with contact guard assistance. Progress Towards Rehabilitation Goals: He is making excellent progress towards his goals of becoming independent with upper and lower body dressing, transferring, toileting, showering, and ambulating o josé miguel 500 feet with independence. Assessment: Mr. Bassett is a 67-year-old patient with a right thalamic stroke and also involvement o f the posterior limb of the internal capsule on the right. He has undergone a stroke. He has left-s ided weakness with numbness in the arm and leg, which is improving very well. He does have a patent foramen ovale. Other risk factors for stroke include hypertension. He has risk of deep vein thrombo sis, constipation, and depression. Plan: 1.Continue with physical and occupational therapy as indicated. 2.Continue with all medications as noted above including for reducing risk of stroke and for DVT pro phylaxis. Comorbidities That Impact His Rehabilitation And Delay His Progress: No significant comorbidities th at slow him from doing very well. HERNANDO/MARIANNA Voice ID: [id number] Report ID: [id number]
[2022-11-30 05:49] LABS: Absolute Lymphocytes (CBC) 1.6 K/uL (0.7-4.9); Hematocrit 46.9 % (39.6-49.0); Lymphocytes % 16.2 % (15.3-44.8); MCV 84.4 fL (80-100); MPV 9.1 fL (7.6-11.3); RBC Red Blood Cell Count 5.56 M/uL (4.33-5.43)
[2022-11-30 06:20] LABS: Albumin 3.2 g/dL (3.4-5.0); Magnesium 2.3 mg/dL (1.6-2.4); Potassium 3.8 mmol/L (3.5-5.1); Prealbumin 18.8 mg/dL (20-40)
[2022-11-30] MEDS: CLOPIDOGREL 75 MG TABLET PO SCH (07:25)
[2022-11-30] MEDS: BACLOFEN 10 MG TAB PO SCH (07:26)
[2022-11-30] MEDS: ASPIRIN EC 81 MG TAB PO SCH (07:26)
[2022-11-30] MEDS: lisinopriL 5 MG TAB PO SCH (07:26)
[2022-11-30] MEDS: MAGNESIUM OXIDE 400 MG TAB PO SCH (07:27)
--- NOTE | 2022-11-30 12:45 | P.PN ---
Subjective Date of Service: 11/30/22 Chief Complaint: L SIDE BODY WEAKNESS Subjective: Improving HE IS DOING PT DAILY FEELS WELL. NO PAIN FEELS BETTER DAILY. STABLE, NO NEW ISSUES. HE IS STRONGER DAILY. Review of Systems 10-point ROS is otherwise unremarkable General: Weakness Physical Examination - Vital Signs Temperature: 98.2 F Blood Pressure: 129/75 Pulse: 83 Respirations: 18 Pulse Ox (%): 97 - Physical Exam Neurological: Normal speech, Abnormal gait (ABLE TO WALK WITH MINIMAL ASSIST. USES WALKER.) - Studies Laboratory Data (last 24 hrs) 11/30/22 05:25: Sodium 139, Potassium 3.8, BUN 13, Creatinine 0.81, Glucose 110 H, Magnesium 2.3 11/30/22 05:25: WBC 10.00, Hgb 15.5, Hct 46.9, Plt Count 210 Medications List Reviewed: Yes Assessment And Plan - Current Problems (Diagnosis) (1) Lacunar infarct, acute Current Visit: Yes Status: Acute Plan: THIS CAN BE MICROVASCULAR FROM AGING AND OBESITY. HE NEVER HAD HTN BEFORE. PFO WILL NOT GIVE RISE TO INFACT BUT EMBOLI. CONT PT CONT PLAVIX. NO CHANGES. CONT MEDS. (2) PFO (patent foramen ovale) Current Visit: Yes Status: Acute Plan: ABOVE THIS IS THERE FOR ALL HIS LIFE AND IS NOT THE CAUSE OF THIS STROKE. CONSULT CARDIOLOGY. (3) HTN (hypertension) Current Visit: Yes Status: Acute Plan: NEW. WILL FU ON LISINOPRIL.
[2022-11-30] MEDS: ENOXAPARIN 40 MG/0.4 ML SQ SCH (16:29)
[2022-11-30] MEDS: ATORVASTATIN 80 MG TAB PO SCH (20:43)
[2022-11-30] MEDS: MELATONIN 3 MG TABLET PO PRN (20:43)
--- NOTE | 2022-11-30 21:24 | PN ---
Date of Progress Note: 11/30/2022 Time Of Service: 1:00 p.m. Subjective: Mr. Bassett is doing well. He has no new complaints. Review of Systems: No fevers, chills, nausea, vomiting. He has muscle spasms and myalgias very mild and he is otherwise doing well. Physical Examination: Vital Signs: Blood pressure 129/75, pulse 83, respiratory rate 16, temperature 98.2, oxygen saturati on 97%. General: Mr. Bassett has improving left-sided weakness and sensory loss and is otherwise doing hillary r daily. Laboratory Studies: White blood cell count 10.0, hemoglobin 13.5, platelets 210. Chemistries: Sodi um 139, potassium 3.8, chloride 108, carbon dioxide 26, BUN 13, creatinine 0.81, glucose 110, calcium 8.7. Magnesium 2.3. Albumin is 3.2, prealbumin is 18.8. X-ray imaging: None. Medications: Medications are unchanged over the last day. He is on: 1.Aspirin 81 mg daily. 2.Plavix 75 mg daily for stroke risk reduction. 3.Lovenox 40 mg subcutaneous daily for DVT risk reduction. 4.He is on Prinivil 2.5 mg daily for hypertension. 5.Senokot S 2 at night for constipation. He takes simethicone for the bloating and abdominal disten tion. Current Functional Status: Currently, Mr. Bassett ambulated 300 feet with standby assistance using a rolling walker and another 250 twice a rolling walker with standby assistance. He also ascended and descended a curb with standby assistance. Progress Towards Rehabilitation Goals: He is making excellent progress towards his rehabilitation go als of becoming independent with his ambulation, transfers, toileting, showering, and all his activit ies of daily living. Assessment: Mr. Bassett is a 67-year-old patient with a right thalamic stroke that also included the posterior limb of internal capsule on the right. He is doing very well in terms of his recovery fro m the stroke. He does have a patent foramen ovale, hypertension, constipation, and mild depression. Plan: 1.Continue aggressive physical and occupational therapy. 2.Continue Prinivil 2.5 mg daily for hypertension. 3.Continue Senokot S for constipation. 4.Continue Lipitor 80 mg at bedtime for dyslipidemia and he is on the aspirin and Plavix for stroke risk reduction. Comorbidities That Continue To Impact His Rehabilitation Process: No comorbidities are limiting his rehabilitation. He is doing well from that standpoint. HERNANDO/MARIANNA Voice ID: [id number] Report ID: [id number]
[2022-12-01] MEDS: BACLOFEN 10 MG TAB PO SCH (07:32)
[2022-12-01] MEDS: lisinopriL 5 MG TAB PO SCH (07:33)
[2022-12-01] MEDS: CLOPIDOGREL 75 MG TABLET PO SCH (07:33)
[2022-12-01] MEDS: ASPIRIN EC 81 MG TAB PO SCH (07:34)
[2022-12-01] MEDS: MAGNESIUM OXIDE 400 MG TAB PO SCH (07:34)
--- NOTE | 2022-12-01 08:37 | P.RH.PN ---
Estimated Length of Stay: 13 Expected Discharge Date: 12/05/22 Discharge Disposition Plan: Home Family Support: Yes Skilled Nursing Goal: Mobility, Transfers, Self Care Vital Signs: Last Vital Signs Temp 97.2 F 12/01/22 07:48 Pulse 85 12/01/22 07:48 Resp 16 12/01/22 07:48 BP 126/84 12/01/22 07:48 Pulse Ox 97 12/01/22 07:48 Laboratory: Laboratory Last Values WBC 10.00 K/uL (4.3-10.9) 11/30/22 05:25 RBC 5.56 M/uL (4.33-5.43) H 11/30/22 05:25 Hgb 15.5 g/dL (13.6-17.9) 11/30/22 05:25 Hct 46.9 % (39.6-49.0) 11/30/22 05:25 MCV 84.4 fL (80-100) 11/30/22 05:25 MCH 28.0 pg (27.0-35.0) 11/30/22 05:25 MCHC 33.1 g/dL (32.0-36.0) 11/30/22 05:25 RDW 14.1 % (12.1-15.2) 11/30/22 05:25 Plt Count 210 K/uL (152-406) 11/30/22 05:25 MPV 9.1 fL (7.6-11.3) 11/30/22 05:25 Neutrophils % 65.8 % (41.7-73.7) 11/30/22 05:25 Lymphocytes % 16.2 % (15.3-44.8) 11/30/22 05:25 Monocytes % 11.8 % (3.3-12.3) 11/30/22 05:25 Eosinophils % 4.8 % (0-4.4) H 11/30/22 05:25 Basophils % 1.4 % (0-1.3) H 11/30/22 05:25 Absolute Neutrophils 6.6 K/uL (1.8-8.0) 11/30/22 05:25 Absolute Lymphocytes 1.6 K/uL (0.7-4.9) 11/30/22 05:25 Absolute Monocytes 1.2 K/uL (0.1-1.3) 11/30/22 05:25 Absolute Eosinophils 0.5 K/uL (0-0.5) 11/30/22 05:25 Absolute Basophils 0.1 K/uL (0-0.5) 11/30/22 05:25 Sodium 139 mmol/L (136-145) 11/30/22 05:25 Potassium 3.8 mmol/L (3.5-5.1) 11/30/22 05:25 Chloride 108 mmol/L (98-107) H 11/30/22 05:25 Carbon Dioxide 26 mmol/L (21-32) 11/30/22 05:25 Anion Gap 8.8 mEq/L (5.0-15.0) 11/30/22 05:25 BUN 13 mg/dL (7-18) 11/30/22 05:25 Creatinine 0.81 mg/dL (0.70-1.30) 11/30/22 05:25 Est GFR (CKD-EPI) 97 ml/min (=/>90) 11/30/22 05:25 Glucose 110 mg/dL (74-106) H 11/30/22 05:25 Calcium 8.7 mg/dL (8.5-10.1) 11/30/22 05:25 Magnesium 2.3 mg/dL (1.6-2.4) 11/30/22 05:25 Albumin 3.2 g/dL (3.4-5.0) L 11/30/22 05:25 Prealbumin 18.8 mg/dL (20-40) L 11/30/22 05:25 Urine Color Yellow (Yellow) 11/24/22 15:52 Urine Clarity Clear (Clear) 11/24/22 15:52 Urine pH 6.0 (5.0-7.0) 11/24/22 15:52 Ur Specific [place] 1.025 (1.005-1.030) 11/24/22 15:52 Glucose (UA)(Auto) Negative (Negative) 11/24/22 15:52 Urine Ketones Negative (Negative) 11/24/22 15:52 Urine Blood Negative (Negative) 11/24/22 15:52 Urine Nitrite Negative (Negative) 11/24/22 15:52 Urine Bilirubin Negative (Negative) 11/24/22 15:52 Urine Urobilinogen Normal (Normal) 11/24/22 15:52 Ur Leukocyte Esterase Negative Alfa/uL (Negative) 11/24/22 15:52 Urine RBC 5-10 /HPF (None Seen) H 11/24/22 15:52 Urine WBC <5 /HPF (<5) 11/24/22 15:52 Ur Squamous Epith Cells None seen /HPF (None Seen) 11/24/22 15:52 U Non-Squamous Epi Cells <5 /HPF (None Seen) 11/24/22 15:52 Unidentified Crystals Few /HPF (None Seen) 11/24/22 15:52 Urine Bacteria None seen /HPF (<20) 11/24/22 15:52 Urine Mucus 1+ /HPF (None Seen) 11/24/22 15:52 Urine Yeast (Budding) Trace /HPF (None Seen) H 11/24/22 15:52 Urine Culture Reflexed Not needed 11/24/22 15:52 Urine Total Protein Trace (Negative) H 11/24/22 15:52 SARS-CoV-2 Rap RNA(RT-PCR) Negative (NEGATIVE) 11/24/22 17:42 Weight: 250 lb Wound Present: No Closed Surgical Incision Present: No Negative Pressure Wound Therapy Present: No Physician Update: Labs reviewed and are stable. He is walking 1000' with supervision due to poor balance. Blood pressures are better controlled. ADLs are at SBA. Family training to be done. Summary: Patient's care plan and care home goals have been reviewed and revised as necessary. Please see the Rehabilitation Signature page for all necessary signatures.
--- NOTE | 2022-12-01 14:02 | P.PN ---
Subjective Date of Service: 12/01/22 Chief Complaint: L SIDE BODY WEAKNESS Subjective: Improving HE IS DOING PT DAILY FEELS WELL. NO PAIN FEELS BETTER DAILY. STABLE, NO NEW ISSUES. HE IS STRONGER DAILY. HE IS LOT MORE INDEPENDENT. CONT PT. DC PLAN IN PROCESS. Physical Examination - Vital Signs Temperature: 97.2 F Blood Pressure: 126/84 Pulse: 85 Respirations: 16 Pulse Ox (%): 97 - Studies Medications List Reviewed: Yes Assessment And Plan - Current Problems (Diagnosis) (1) Lacunar infarct, acute Current Visit: Yes Status: Acute Plan: THIS CAN BE MICROVASCULAR FROM AGING AND OBESITY. HE NEVER HAD HTN BEFORE. PFO WILL NOT GIVE RISE TO INFACT BUT EMBOLI. CONT PT CONT PLAVIX. NO CHANGES. CONT MEDS. (2) PFO (patent foramen ovale) Current Visit: Yes Status: Acute Plan: ABOVE THIS IS THERE FOR ALL HIS LIFE AND IS NOT THE CAUSE OF THIS STROKE. CONSULT CARDIOLOGY. (3) HTN (hypertension) Current Visit: Yes Status: Acute Plan: NEW. WILL FU ON LISINOPRIL.
[2022-12-01] MEDS: ENOXAPARIN 40 MG/0.4 ML SQ SCH (17:16)
[2022-12-01] MEDS: ATORVASTATIN 80 MG TAB PO SCH (20:18)
[2022-12-01] MEDS: MELATONIN 3 MG TABLET PO PRN (20:22)
[2022-12-02] MEDS: CLOPIDOGREL 75 MG TABLET PO SCH (08:47)
[2022-12-02] MEDS: lisinopriL 5 MG TAB PO SCH (08:47)
[2022-12-02] MEDS: ASPIRIN EC 81 MG TAB PO SCH (08:47)
[2022-12-02] MEDS: BACLOFEN 10 MG TAB PO SCH (08:48)
[2022-12-02] MEDS: MAGNESIUM OXIDE 400 MG TAB PO SCH (08:48)
[2022-12-02] MEDS: ENOXAPARIN 40 MG/0.4 ML SQ SCH (17:23)
[2022-12-02] MEDS: MELATONIN 3 MG TABLET PO PRN (19:37)
[2022-12-02] MEDS: ATORVASTATIN 80 MG TAB PO SCH (19:37)
--- NOTE | 2022-12-03 03:33 | PN ---
Subjective: Mr. Bassett is doing great. Denies any chest pain, nausea, vomiting. Generally, he is weak in the left hemiparesis to a certain degree, continues with some ataxia, but he is lot better th an before. Assessment And Plan: Stroke with recovery. Continue OT and PT. Continue Plavix and statin. RVD/MODL Voice ID: [id number] Report ID: [id number]
[2022-12-03] MEDS: ASPIRIN EC 81 MG TAB PO SCH (08:22)
[2022-12-03] MEDS: lisinopriL 5 MG TAB PO SCH (08:22)
[2022-12-03] MEDS: CLOPIDOGREL 75 MG TABLET PO SCH (08:22)
[2022-12-03] MEDS: MAGNESIUM OXIDE 400 MG TAB PO SCH (08:23)
[2022-12-03] MEDS: BACLOFEN 10 MG TAB PO SCH (08:24)
--- NOTE | 2022-12-03 11:33 | P.PN ---
Subjective Date of Service: 12/03/22 Chief Complaint: L SIDE BODY WEAKNESS Subjective: Improving HE IS DOING PT DAILY FEELS WELL. NO PAIN FEELS BETTER DAILY. STABLE, NO NEW ISSUES. HE IS STRONGER DAILY. HE IS LOT MORE INDEPENDENT. CONT PT. DC PLAN IN PROCESS. Physical Examination - Vital Signs Temperature: 97.8 F Blood Pressure: 127/98 Pulse: 82 Respirations: 18 Pulse Ox (%): 96 - Physical Exam General: Alert, In no apparent distress HEENT: Atraumatic, PERRLA, EOMI Neck: Supple, JVD not distended Respiratory: Clear to auscultation bilaterally, Normal air movement Cardiovascular: Regular rate/rhythm, Normal S1 S2 Gastrointestinal: Normal bowel sounds, No tenderness Musculoskeletal: No tenderness Integumentary: No rashes Neurological: Abnormal gait, Abnormal strength (MILD L SIDE WEAKNESS.) Lymphatics: No axilla or inguinal lymphadenopathy - Studies Medications List Reviewed: Yes Assessment And Plan - Current Problems (Diagnosis) (1) Lacunar infarct, acute Current Visit: Yes Status: Acute Plan: THIS CAN BE MICROVASCULAR FROM AGING AND OBESITY. HE NEVER HAD HTN BEFORE. PFO WILL NOT GIVE RISE TO INFACT BUT EMBOLI. CONT PT CONT PLAVIX. NO CHANGES. CONT MEDS. (2) PFO (patent foramen ovale) Current Visit: Yes Status: Acute Plan: ABOVE THIS IS THERE FOR ALL HIS LIFE AND IS NOT THE CAUSE OF THIS STROKE. CONSULT CARDIOLOGY. (3) HTN (hypertension) Current Visit: Yes Status: Acute Plan: NEW. WILL FU ON LISINOPRIL.
[2022-12-03] MEDS: ENOXAPARIN 40 MG/0.4 ML SQ SCH (16:19)
[2022-12-03] MEDS: MELATONIN 3 MG TABLET PO PRN (19:53)
[2022-12-03] MEDS: ATORVASTATIN 80 MG TAB PO SCH (19:53)
[2022-12-04] MEDS: lisinopriL 5 MG TAB PO SCH (08:05)
[2022-12-04] MEDS: CLOPIDOGREL 75 MG TABLET PO SCH (08:05)
[2022-12-04] MEDS: BACLOFEN 10 MG TAB PO SCH (08:05)
[2022-12-04] MEDS: MAGNESIUM OXIDE 400 MG TAB PO SCH (08:06)
[2022-12-04] MEDS: ASPIRIN EC 81 MG TAB PO SCH (08:06)
[2022-12-04] MEDS: ENOXAPARIN 40 MG/0.4 ML SQ SCH (16:01)
--- NOTE | 2022-12-04 17:02 | EKG ---
Test Date: 2022-12-01 Test Time: 11:09:15 Software Developer Mid Level: RONAK MEASUREMENT RESULTS: Intervals: Rate: 83 ME: 178 QRSD: 88 QT: 340 QTc: 399 Orange: P: 41 ME: 178 QRS: 11 T: 14 INTERPRETIVE STATEMENTS: Normal sinus rhythm Normal ECG Compared to ECG 06/30/2019 10:16:35 No significant changes Electronically Signed On 12-04-22 16:57:35 SENIOR STORAGE ADMINISTRATOR by Mac Murphy
--- NOTE | 2022-12-04 17:11 | P.PN ---
Subjective Date of Service: 12/04/22 Chief Complaint: L SIDE BODY WEAKNESS Subjective: Improving HE IS DOING PT DAILY FEELS WELL. NO PAIN FEELS BETTER DAILY. STABLE, NO NEW ISSUES. HE IS STRONGER DAILY. HE IS LOT MORE INDEPENDENT. CONT PT. DC PLAN IN PROCESS. HE IS STABLE. WILL GO HOME IN 3 DAYS OR SO. Physical Examination - Vital Signs Temperature: 97.7 F Blood Pressure: 137/85 Pulse: 77 Respirations: 18 Pulse Ox (%): 96 - Studies Medications List Reviewed: Yes Assessment And Plan - Current Problems (Diagnosis) (1) Lacunar infarct, acute Current Visit: Yes Status: Acute Plan: THIS CAN BE MICROVASCULAR FROM AGING AND OBESITY. HE NEVER HAD HTN BEFORE. PFO WILL NOT GIVE RISE TO INFACT BUT EMBOLI. CONT PT CONT PLAVIX. NO CHANGES. CONT MEDS. (2) PFO (patent foramen ovale) Current Visit: Yes Status: Acute Plan: ABOVE THIS IS THERE FOR ALL HIS LIFE AND IS NOT THE CAUSE OF THIS STROKE. CONSULT CARDIOLOGY. (3) HTN (hypertension) Current Visit: Yes Status: Acute Plan: NEW. WILL FU ON LISINOPRIL.
[2022-12-04] MEDS: ATORVASTATIN 80 MG TAB PO SCH (19:44)
[2022-12-04] MEDS: MELATONIN 3 MG TABLET PO PRN (19:44)
--- NOTE | 2022-12-04 22:30 | PN ---
Date of Progress Note: 12/04/2022 Xyjf-Lh-Aqcj Progress Note Visit Time Of Service: 1 p.m. Subjective: Mr. Bassett is doing well. He feels he is making very good progress on his daily basis. He has no new complaints. Review of Systems: No fevers, chills, nausea, or vomiting. He has very little muscle spasms and that is improving. Physical Examination: Vital Signs: Blood pressure 137/85, pulse 77, respiratory rate 18, temperature 97.7, and oxygen satu ration 96%. Neurologic: Mr. Bassett again is making great progress. In terms of his strength, he is close to wh ere he was back to full strength, but he does have some incoordination problems in the left upper and lower extremities. Laboratory Studies: No new laboratory studies. X-ray/imaging: No new x-ray or imaging. Medications: Remain unchanged. He is still on aspirin 81 mg daily, Plavix 75 mg daily, Lovenox 40 m g subcutaneously daily, Prinivil 2.5 mg daily for blood pressure, and melatonin for sleep. His const ipation is treated with Senokot and bloating with simethicone. Current Level Of Functioning: He is able to ambulate 250 feet and 175 feet independently with a sing le prong cane. Progress Towards Rehabilitation Goals: He is making excellent progress towards becoming independent with his household distances and 250 feet distances in addition to performing his activities of daily living, eating, and dressing upper and lower body. Assessment: Mr. Bassett is a 67-year-old patient admitted to rehabilitation unit with a right thalam ic stroke, which includes the posterior limb of the internal capsule on the right. His deficits are more incoordination and sensory and he is doing very well in terms of his recovery. His therapy is g oing excellent in terms of his physical and occupational therapy. His comorbid conditions also inclu de a patent foramen ovale, hypertension, constipation, and depression. Plan: 1.Aggressive physical and occupational therapy. 2.Continue Prinivil for hypertension, Senokot for constipation, Lipitor for dyslipidemia, and Plavix and aspirin for stroke risk reduction. Comorbidities That Continue To His Impact Rehabilitation Process: At this point, no significant sarina rbidities are stopping him from doing very well. LB/MODL Voice ID: [id number] Report ID: [id number]
[2022-12-05] MEDS: ASPIRIN EC 81 MG TAB PO SCH (08:37)
[2022-12-05] MEDS: CLOPIDOGREL 75 MG TABLET PO SCH (08:37)
[2022-12-05] MEDS: BACLOFEN 10 MG TAB PO SCH (08:37)
[2022-12-05] MEDS: MAGNESIUM OXIDE 400 MG TAB PO SCH (08:37)
[2022-12-05] MEDS: lisinopriL 5 MG TAB PO SCH (08:38)
--- NOTE | 2022-12-05 12:49 | P.PN ---
Subjective Date of Service: 12/05/22 Chief Complaint: L SIDE BODY WEAKNESS Subjective: Improving HE IS DOING PT DAILY FEELS WELL. NO PAIN FEELS BETTER DAILY. STABLE, NO NEW ISSUES. HE IS STRONGER DAILY. HE IS LOT MORE INDEPENDENT. CONT PT. DC PLAN IN PROCESS. HE IS STABLE. WILL GO HOME IN 3 DAYS OR SO. HE IS STILL UNSTEADY. HE WILL DO PT AT HOME. Physical Examination - Vital Signs Temperature: 97.2 F Blood Pressure: 115/73 Pulse: 85 Respirations: 18 Pulse Ox (%): 95 - Studies Medications List Reviewed: Yes Assessment And Plan - Current Problems (Diagnosis) (1) Lacunar infarct, acute Current Visit: Yes Status: Acute Plan: THIS CAN BE MICROVASCULAR FROM AGING AND OBESITY. HE NEVER HAD HTN BEFORE. PFO WILL NOT GIVE RISE TO INFACT BUT EMBOLI. CONT PT CONT PLAVIX. NO CHANGES. CONT MEDS. (2) PFO (patent foramen ovale) Current Visit: Yes Status: Acute Plan: ABOVE THIS IS THERE FOR ALL HIS LIFE AND IS NOT THE CAUSE OF THIS STROKE. CONSULT CARDIOLOGY. (3) HTN (hypertension) Current Visit: Yes Status: Acute Plan: NEW. WILL FU ON LISINOPRIL.
[2022-12-05] MEDS: MELATONIN 3 MG TABLET PO PRN (19:58)
[2022-12-05] MEDS: ATORVASTATIN 80 MG TAB PO SCH (19:58)
[2022-12-05] MEDS: APIXABAN 2.5 MG TABLET PO SCH (19:58)
--- NOTE | 2022-12-05 22:53 | PN ---
Date of Progress Note: 12/05/2022 Kwcd-Yh-Otmy Visit Time Of Service: 1 p.m. Subjective: Mr. Bassett is doing well. He has no new complaints. He is very happy with his progres s. is at bedside. Review of Systems: No fevers, chills, nausea, vomiting, myalgias, or arthralgias. Denies any significant complaints. N o muscle spasms. Physical Examination: Vital Signs: Blood pressure 115/73, pulse 85, respiratory rate 16, temperature 97.2, and saturation 99%. General: Mr. Bassett is walking around the unit. He is doing it independently with a single-point c ane. He has done excellent. Neurologic: He is improving in coordination and still has a slightly wide-based gait. He was able t o do the putt-putt golf on the floor and did very well with that. Laboratory Studies: No new laboratory studies. X-ray/imaging: No new x-ray or imaging. Medications: Unchanged. He has Eliquis 2.5 mg twice daily for DVT and stroke risk reduction. He melendez s aspirin 81 mg daily and Plavix 75 mg daily. He has low-dose lisinopril 2.5 mg daily. He has Senok ot and melatonin as well. Current Functional Status: Mr. Bassett is able to ambulate 300 feet independently with a single-pron g cane. He ascended and descended 15 steps independently using the 3-prong cane and left-sided hand rails. Progress Towards Rehabilitation Goals: Mr. Bassett is making excellent progress and is now independe nt over 300 feet and 15 steps. He can dress his upper and lower body, perform showering and toiletin g, and he is recovering very well. Assessment: Mr. Bassett is a 67-year-old patient in the rehabilitation unit with a right thalamic an d posterior limb of the internal capsule stroke with deficits of sensory, ataxia, and numbness in the right upper and lower extremities and he is recovering in an excellent fashion. He had patent sonya en ovale, hypertension, constipation, and mild depression as comorbidities. Plan: 1.Continue with physical and occupational therapy, which can be done on an outpatient basis. 2.Continue with medications for his hypertension, constipation, dyslipidemia, and stroke risk reduct ion as listed previously. Comorbidities That Continue To Impact Rehabilitation Process: At this point, no comorbidities are li miting his ability to do very well. LB/MODL Voice ID: [id number] Report ID: [id number]
[2022-12-06 07:14] VITALS: BP 125/72; TEMP 97.7
[2022-12-06] MEDS: lisinopriL 5 MG TAB PO SCH (08:10)
[2022-12-06] MEDS: CLOPIDOGREL 75 MG TABLET PO SCH (08:11)
[2022-12-06] MEDS: MAGNESIUM OXIDE 400 MG TAB PO SCH (08:11)
[2022-12-06] MEDS: ASPIRIN EC 81 MG TAB PO SCH (08:11)
[2022-12-06] MEDS: APIXABAN 2.5 MG TABLET PO SCH (08:11)
[2022-12-06] MEDS: BACLOFEN 10 MG TAB PO SCH (08:11)
--- NOTE | 2022-12-14 01:50 | DS ---
Date of Discharge: 12/06/2022 Discharge Condition: Good. Discharge Followup: With primary care physician, Dr. Tilley and art display maker, Dr. Murphy. Diet: Heart healthy. Activity: As tolerated. Discharge Diagnoses: Prostate cancer, arthritis, hypertension, obesity, stroke with left-sided weakn ess, and patent foramen ovale. Procedures While In Hospital: The patient had an electrocardiogram on the . The study showed no rmal sinus rhythm, normal EKG. Laboratory Studies: On discharge, white blood cell count 10.0, hemoglobin 15.5, and platelets 210. Chemistries essentially unremarkable except chloride slightly elevated at 108, sodium was 139, potass ium 3.8, BUN 13, creatinine 0.81, glucose ranged from 99 to 110. Prealbumin was 18.8 by his discharg e and albumin 3.2. He had 2 COVID-19 tests were negative on the and on the . Hospital Course: Mr. Bassett is a 67-year-old right-handed patient who actually had a stroke while o n a cruise ship out of [place]. The stroke has occurred on the and was life flighted back to [facility] where he had his initial management. Symptoms consisted of ataxia, dysarthria, and left-sided weak ness. His workup identified mild narrowing of the right MCA 3rd branch and there was an acute lacuna r infarct in the lateral margin of the right thalamus and a medium marginal posterior wall of the rig ht internal capsule. There were also chronic ischemic changes noted. His LDL was elevated to 140. Creatine kinase elevated to 472. His 2D echo showed a positive bubble study for a patent foramen ova le. He was treated with Eliquis 2.5 mg twice daily along with Plavix and aspirin. While at [facility], he did have significant improvement in his paresis on the left side and his incoordination in his gait and dysarthria. He was evaluated by the Cardiology service Dr. Murphy on the and ed that the patient did not require an acute intervention for the patent foramen ovale. It was noted that he should be followed up and kept on monitor for fibrillation, although the patient is in the npatient rehabilitation unit. It is known that the patent foramen ovale is associated as a possible cause of cryptogenic stroke. However, the patient's stroke was likely not cardioembolic as they look ed still cleaner in nature and the location is against cardioembolic sources. The patient was recommended full anticoagulation by Cardiology. Also while hospitalized, he was seen throughout by his primary c are physician Dr. Tilley who managed the medical management. Progress Made With His Physical And Occupational Therapy: By discharge, Mr. Bassett was able to show excellent balance in terms of his abilities while sitting and standing. Bed mobility with the stand [facility] bed was at modified independence level. Ambulation with a straight cane showed no limitations co vering 500 feet with good tolerance on multiple surfaces, both outdoors and indoors on carpeted servi luis enrique. For stairs, he was up and down 15 steps with a straight cane with good tolerance and car transf er was to SUV with stand and pivot technique. He did meet all functional goals and was discharged ho ak with recommendation for outpatient physical therapy. All of his durable medical equipment needs w ere met. In terms of occupational therapy, he was able to demonstrate small gait pacing unsupported, shower was independent, tub and bench and so on and transfers also independent. He did meet his occ upational therapy goals and he is resting independently using adaptive equipment appropriately and it is recommended that the patient continue with outpatient therapy as needed. LB/MARIANNA Voice ID: [id number] Report ID: [id number]
== END 2022-12-06 09:30 | disposition home or self-care (01) | DRG 57 ==
LOC: 5TH 15:35
PROVIDERS: ADMIT Psychiatry & Neurology Neurology with Special Qualifications in Child Neurology; ATTEND Psychiatry & Neurology Neurology with Special Qualifications in Child Neurology
DX: I69.359 Hemiplegia and hemiparesis following cerebral infarction affecting unspecified side (principal); Q21.12 Patent foramen ovale; I10 Essential (primary) hypertension; E78.5 Hyperlipidemia, unspecified; Z20.822 Contact with and (suspected) exposure to COVID-19; K59.00 Constipation, unspecified; G47.00 Insomnia, unspecified; E66.9 Obesity, unspecified; M19.90 Unspecified osteoarthritis, unspecified site; R27.0 Ataxia, unspecified; F32.A Depression, unspecified; Z68.38 Body mass index [BMI] 38.0-38.9, adult; Z85.46 Personal history of malignant neoplasm of prostate
CPT/HCPCS: 36415; 80048; 81001; 82040; 83735; 84134; 85025; 87086; 87088; 92523; 93005; 97110; 97112; 97116; 97161; 97165; 97530; J1650; U0003

== ENCOUNTER 2023-04-05 16:28 | Emergency (ER) | payer OTHER ==
--- OUTSIDE RECORDS SUMMARY | 2023-04-05 16:34 | XMS REPORT | Continuity of Care Document ---
:1955 Author Organization [facility] Address [address] [place] [address] Care Team Providers Name Role Phone No, Pcp [facility] Primary Care Physician Unavailable Mac Murphy Attending Clinician Unavailable Vineet Mike NP Attending Clinician [phone] Carlos Attending Clinician Unavailable Isabella Engel MD Attending Clinician Kaiser Valles Attending Clinician [phone] Ricardo Andersen MA Attending Clinician Unavailable Ryann Curry MD Attending Clinician Olive Candelario APRN Attending Clinician Cindy Burciaga MA Attending Clinician Unavailable Provider , Not In System Attending Clinician Unavailable John Morgan MD Attending Clinician SALVATORE FRANCES Attending Clinician Unavailable TEJA COYLE Attending Clinician Unavailable Physician, No Primary or Family Admitting Clinician Unavaila ble Carlos Admitting Clinician Unavailable ISABELLA ENGEL Admitting Clinician Unavailable TONG CANDELARIO Admitting Clinician Unavailable TEJA COYLE Admitting Clinician Unavailable Payers Payer Name Policy Type Policy Number Effective Date Expiration Date Mahesh mckinney [place]ICARE [place]: [id number] 2021 [employer] 00:00:00 NICOLASA [id number] 2021 (MEDICARE 00:00:00 SUPPLEMENT) Problems Condition Condition Condition Status Onset Resolution Last Treating Co mments Source Name Details Category Date Date Treatment Clinician Date 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 3-04 st 00:00: Hospita 00 l 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 Osteoarthr 9 Or thope itis itis 00:00: dic 00 Sports Medic[facility] Pain of Pain of Problem Active [facility] right Right 9-10 [facility] shoulder Shoulder 00:00: dic joint Joint 00 [facility] Medic[facility] Acute Acute Disease Active [facility] blood loss blood loss 8-30 [facility] anemia anemia 00:[facility]: [facility] 00 Center Hematoma Hematoma Disease [facility] kidney [facility] Perinephri Perinephri Disease Active [facility] c hematoma c hematoma 8-30 [facility] 00:[facility] 00 Center ED ED Disease Active [facility] (erectile (erectile 2 st dysfunctio dysfunctio 00:00: Ho spita n) n) 00 l Prostate Prostate Disease Active [facility] di CA CA 6 st 00:00: Hospita 00 l Prostate Prostate Disease Active [facility] cancer cancer 04-03 st 00:00: Hospita 00 l Allergies, Adverse Reactions, Alerts Allergy Allergy Status Severity Reaction(s) Onset Inactive Treating Comm ents Source Name Type Date Date Clinician No Known DA Active [facility] Allergie 5- Clear s 00:00: Cash [facility] Family History Family Member Diagnosis Comments Start Date Stop Date Source Natural mother [facility] Natural father Cancer [facility] Natural father Cancer [facility] Social History Social Habit Start Date Stop Date Quantity Comments Source History SDOH [facility] Alcohol Std Drinks [facility] History SDOH [facility] Alcohol Binge Medical Dont[facility] ter History SDOH [facility] Alcohol Comment Medical C enter Gender identity [facility] Sexual orientation [facility] History of Social 2023-02-09 2023-02-[address] function 00:00:00 00:00:00 Hospital Alcohol intake 2022-10-20 2022-10-20 Current [facility] 00:[facility]:00 00:00:00 non-drinker of Hospital alcohol (finding) Tobacco Comment 2022-06-26 2022-06-26 1/4 can /day x [facility] 00:00:00 00:00:00 40 years of Hospital smokeless tobacco ; quit 2014 Tobacco use and 2019-07-11 2019-07-[address] [facility] exposure 00:00:00 00:00:00 tobacco non-user [facility] History SDOH 2019-07-11 2019-07-[address] [facility] Alcohol Frequency 00:00:00 00:00:00 Medical Center History of tobacco 2014-11-12 User of [facility] use 00:00:00 smokeless Hospital tobacco Sex Ass[birth year] At [birth year] [facility] 00[facility] Smoking Status Start Date Stop Date Source Never Smoker [facility] Ex-smoker 2022-06-26 00:00:00 2022-06-26 [facility] Medications Ordered Filled Start Stop Current Ordering Indication Dosage Frequency Signature Comments Components Source Medication Medication Date Date Medication? Clinician (SIG) Name Name anastrozole 2021-11- No [id number] 1mg Q7D Take 1 [facility] (Arimidex) 12-24 tablet (1 st 1 mg chemo 00:00: 05:59 mg total) H ospita tablet 00 :00 by mouth l once a week. anastrozole 2021-11 No [id number] 1mg Q7D Take 1 [facility] (Arimidex) 12-24 tablet (1 st 1 mg chemo 00:00: 05:59 mg total) H ospita tablet 00 :00 by mouth l once a week. anastrozole 2021-11- No [id number] 1mg Q7D Take 1 [facility] (Arimidex) 12-24 tablet (1 st 1 mg chemo 00:00: 05:59 mg total) H ospita tablet 00 :00 by mouth l once a week. sildenafiL 2021-11 Yes [id number] 100mg Take 1 [facility] (VIAGRA) 12-[address] 100 MG 00:00: (100 mg Hospita tablet 00 total) by l mouth as needed for erectile dysfunctio n. sildenafiL 2021-11 Yes [id number] 100mg Take 1 [facility] (VIAGRA) 12-[address] 100 MG 00:00: (100 mg Hospita tablet 00 total) by l mouth as needed for erectile dysfunctio n. sildenafiL 2021-11 Yes [id number] 100mg Take 1 [facility] (VIAGRA) 12-[address] 100 MG 00:00: (100 mg Hospita tablet 00 total) by l mouth as needed for erectile dysfunctio n. testosteron 2021-11- No [id number] 200mg Q1W Inject 1 [facility] cypionate 12-21- mL (200 mg s t (DEPOTESTOT 00:00: 04:59 total) Hos amber ERONE 00 :00 into the l CYPIONATE) shoulder, 200 mg/mL thigh, or injection buttocks every 7 days for 180 days. testosteron 2021-11- No [id number] 200mg Q1W Inject 1 [facility] cypionate 12-21- mL (200 mg s t (DEPOTESTOT 00:00: 04:59 total) Hos amber ERONE 00 :00 into the l CYPIONATE) shoulder, 200 mg/mL thigh, or injection buttocks every 7 days for 180 days. testosteron 2021-11- No [id number] 200mg Q1W Inject 1 [facility] cypionate 12-21-08 mL (200 mg s t (DEPOTESTOT 00:00: 04:59 total) Hos amber ERONE 00 :00 into the l CYPIONATE) shoulder, 200 mg/mL thigh, or injection buttocks every 7 days for 180 days. testosteron 2021- No [id number] 200mg Q1W Inject 1 [facility] e cypionate 07-03 11-21 mL (200 mg s t (DEPOTESTOT 00:00: 05:59 total) Hos amber ERONE 00 :00 into the l CYPIONATE) shoulder, 200 mg/mL thigh, or injection buttocks every 7 days for 90 days. testosteron 2021- No [id number] 200mg Q1W Inject 1 [facility] e cypionate 8-22 11-21 mL (200 mg s t (DEPOTESTOT 00:00: 05:59 total) Hos amber ERONE 00 :00 into the l CYPIONATE) shoulder, 200 mg/mL thigh, or injection buttocks every 7 days for 90 days. testosteron 2021- No [id number] 200mg Q1W Inject 1 [facility] e cypionate 8-22 11-21 mL (200 mg s t (DEPOTESTOT 00:00: 05:59 total) Hos amber ERONE 00 :00 into the l CYPIONATE) shoulder, 200 mg/mL thigh, or injection buttocks every 7 days for 90 days. syringe Yes 1{each} Q14D 1 each [facility] with needle 6-[address] (BD Eclipse 00:00: (fourteen) [facility]) 3 00 days. l mL 23 x 1" syringe needle, Yes 1{each} Q14D 1 each [facility] di disp, 18 G 6-[address] (BD Regular 00:00: (fourteen) [facility] 00 days. l [place]) 18 gauge x 1 1/2" needle syringe 0 Yes 1{each} Q14D 1 each [facility] di with needle 6-[address] (BD Eclipse 00:00: (fourteen) [facility]) 3 00 days. l mL 23 x 1" syringe needle, Yes 1{each} Q14D 1 each [facility] di disp, 18 G 6-[address] (BD Regular 00:00: (fourteen) [facility] 00 days. l [place]) 18 gauge x 1 1/2" needle syringe 0 Yes 1{each} Q14D 1 each Meth[facility] di with needle 6-[address] (BD Eclipse 00:00: (fourteen) [facility]) 3 00 days. l mL 23 x 1" syringe needle, Yes 1{each} Q14D 1 each [facility] di disp, 18 G 6-[address] (BD Regular 00:00: (fourteen) [facility] 00 days. l [place]) 18 gauge x 1 1/2" needle testosteron 2021- No 200mg Q14D Inject 1 [facility] e cypionate 04-17 08-22 mL (200 mg s t (Depo-Testo 00:00: 00:00 total) Hos amber sterone) 00 :00 into the l 200 mg/mL shoulder, injection thigh, or buttocks every 14 (fourteen) days for 90 days. testosteron 2021- No 200mg Q14D Inject 1 [facility] e cypionate 04-17 08-22 mL (200 mg s t (Depo-Testo 00:00: 00:00 total) Hos amber sterone) 00 :00 into the l 200 mg/mL shoulder, injection thigh, or buttocks every 14 (fourteen) days for 90 days. testosteron 2021- No 200mg Q14D Inject 1 [facility] cypionate 04-17 08-22 mL (200 mg s t (Depo-Testo 00:00: 00:00 total) Hos amber sterone) 00 :00 into the l 200 mg/mL shoulder, injection thigh, or buttocks every 14 (fourteen) days for 90 days. multivit-mi Yes Method i n/folic/vit 4-21 st K/lycop 10:36: Hospita (ONE-A-DAY 35 l MEN'S MULTIVITAMI N ORAL) multivit-mi Yes Method i n/folic/vit 4-21 st K/lycop 10:36: Hospita (ONE-A-DAY 35 l MEN'S MULTIVITAMI N ORAL) multivit-mi Yes Method i n/folic/vit 4-21 st K/lycop 10:36: Hospita (ONE-A-DAY 35 l MEN'S MULTIVITAMI N ORAL) ascorbic Yes 1000mg QD Take 1,000 M ethodi acid, 3-[address] vitamin C, 16:37: mouth Hospit a (vitamin C) 08 daily. l 1000 MG tablet MELOXICAM Yes 15mg Take 15 mg Me thodi ORAL 3-[address] 16:37: Hospita 08 l cranberry 2022-0 Yes [id number] Take Metho di fruit 3-04 30,[address] extract 16:37: by mouth. Hospi ta (CRANBERRY 08 l CONCENTRATE ORAL) multivit-mi 2021-0 Yes Take by Met hodi n/folic/vit 3-[address] K/lycop 16:37: Hospita (ONE-A-DAY 08 l MEN'S 50 PLUS ORAL) ZINC ORAL 2022-0 Yes 50mg Take 50 mg Me thodi 3-[address] 16:37: Hospita 08 l cholecalcif 2022-0 Yes Take by Met emilio wili, 3-[address] vitamin D3, 16:37: Hospit a (VITAMIN D3 08 l ORAL) vitamin B 2021-0 Yes Take by Metho di complex (B 3-[address] COMPLEX-VIT 16:37: Hospit a HERRERA B12 08 l ORAL) MAGNESIUM 2021-0 Yes Take by Metho di ORAL 3-[address] 16:37: Hospita 08 l ascorbic 2022-0 Yes 1000mg QD Take 1,000 M ethodi acid, 3-[address] vitamin C, 16:37: mouth Hospit a (vitamin C) 08 daily. l 1000 MG tablet MELOXICAM 2021-0 Yes 15mg Take 15 mg Me thodi ORAL 3-[address] 16:37: Hospita 08 l cranberry 2-0 Yes [id number] Take Metho di fruit 3-04 30,[address] extract 16:37: by mouth. Hospi ta (CRANBERRY 08 l CONCENTRATE ORAL) multivit-mi 2021-0 Yes Take by Met hodi n/folic/vit 3-[address] K/lycop 16:37: Hospita (ONE-A-DAY 08 l MEN'S 50 PLUS ORAL) ZINC ORAL 2022-0 Yes 50mg Take 50 mg Me thodi 3-[address] 16:37: Hospita 08 l cholecalcif 2022-0 Yes Take by Met hodi wili, 3-[address] vitamin D3, 16:37: Hospit a (VITAMIN D3 08 l ORAL) vitamin B 2022-0 Yes Take by Metho di complex (B 3-[address] COMPLEX-VIT 16:37: Hospit a HERRERA B12 08 l ORAL) MAGNESIUM 2022-0 Yes Take by Metho di ORAL 3-[address] 16:37: Hospita 08 l ascorbic 2021-0 Yes 1000mg QD Take 1,000 M ethodi acid, 3-[address] vitamin C, 16:37: mouth Hospit a (vitamin C) 08 daily. l 1000 MG tablet MELOXICAM 2021-0 Yes 15mg Take 15 mg Me thodi ORAL [address] 16:37: Hospita 08 l cranberry 2021-0 Yes [id number] Take Metho di fruit -04 30,[address] extract 16:37: by mouth. Hospi ta (CRANBERRY 08 l CONCENTRATE ORAL) multivit-mi 0 Yes Take by Met emilio n/folic/vit 3-[address] K/lycop 16:37: Hospita (ONE-A-DAY 08 l MEN'S 50 PLUS ORAL) ZINC ORAL 0 Yes 50mg Take 50 mg Me thodi [address] 16:37: Hospita 08 l cholecalcif 0 Yes Take by Met emilio wili, 3-[address] vitamin D3, 16:37: Hospit a (VITAMIN D3 08 l ORAL) vitamin B 0 Yes Take by Metho di complex (B 3-[address] COMPLEX-VIT 16:37: Hospit a HERRERA B12 08 l ORAL) MAGNESIUM 0 Yes Take by Metho di ORAL 3-[address] 16:37: Hospita 08 l meloxicam 2021-0 2022- No 15mg Q24H Take 1 Metho di (Mobic) 15 01-13 tablet (15 st mg tablet 00:00: 04:59 mg total) Ho spita 00 :00 by mouth l daily as needed for moderate pain for up to 30 days. oxybutynin 2021-0 202- No 10mg Q24H Take 1 Meth manuel XL 01-13 tablet (10 st (Ditropan 00:00: 04:59 mg total) Ho spita XL) 10 MG 00 :00 by mouth l 24 hr daily as tablet needed (bladder spasms) for up to 30 days. phenazopyri 2021-0 2022- No 100mg Q.[id number] Take 1 [facility] dine 01-[id number] (Pyridium) 00:00: 04:59 3D (100 mg Hos amber 100 MG 00 :00 total) by l tablet mouth 3 (three) times a day as needed (burning with urination) for up to 30 days. docusate 2021- No 100mg Q.5D Take 1 Meth[facility] di sodium 01-13- capsule st (Colace) 00:00: 04:59 (100 mg Hospi ta 100 MG 00 :00 total) by l capsule mouth 2 (two) times a day as needed for constipati on for up [place] 30 [place] [id number] 50mg Q6H Take 1 [facility]o di (ULTRAM) 50 01-13-10 tablet (50 s t mg tablet 00:00: 05:59 mg total) Ho spita 00 :00 by mouth l every 6 (six) hours as needed for moderate pain for up to 5 days .acute pain. levoFLOXaci 2021- No 750mg QD Take 1 Me thodi n 01-13 03-[address] (Levaquin) 00:00: 05:59 (750 mg [...] to 30 days. phenazopyri 2021- No 100mg Q.[id number] Take 1 [facility] dine 01-[id number] (Pyridium) 00:00: 00:00 3D (100 mg Hos amber 100 MG 00 :00 total) by l tablet mouth 3 (three) times a day as needed (burning with urination) for up to 30 days. traMADoL 2021- No [id number] 50mg Q6H Take 1 Metho di (ULTRAM) 50 3- 03-04 tablet (50 s t mg tablet 00:00: 00:00 mg total) Ho spita 00 :00 by mouth l every 6 (six) hours as needed for moderate pain for up to 5 days .acute pain. docusate 2021-2021- No 100mg Q.5D Take 1 Metho di sodium 3- 03-[address] (Colace) 00:00: 00:00 (100 mg Hospi ta 100 MG 00 :00 total) by l capsule mouth 2 (two) times a day as needed for constipati on for up to 30 days. docusate 2021-2021- No 100mg Q.5D Take 1 [facility] di sodium 3- 03-[address] (Colace) 00:00: 00:00 (100 mg Hospi ta 100 MG 00 :00 total) by l capsule mouth 2 (two) times a day as needed for constipati on for up to 30 days. levoFLOXaci 2021- No 750mg QD Take 1 Me thodi n - 03-[address] (Levaquin) 00:00: 00:00 (750 mg [...] spasms) for up to 30 days. phenazopyri 2021-0 2021- No 100mg Q.[id number] Take 1 [facility] dine - 03-[id number] (Pyridium) 00:00: 00:00 3D (100 mg Hos amber 100 MG 00 :00 total) by l tablet mouth 3 (three) times a day as needed (burning with urination) for up to 30 days. traMADoL 2021-2021- No [id number] 50mg Q6H Take 1 Metho di (ULTRAM) 50 3-04 03-04 tablet (50 s t mg tablet 00:00: 00:00 mg total) Ho spita 00 :00 by mouth l every 6 (six) hours as needed for moderate pain for up to 5 days .acute pain. magnesium Yes [facility] 250 mg 1-17 st tablet 00:00: Hospita 00 l magnesium 0 Yes [facility] 250 mg 1-17 st tablet 00:00: Hospita 00 l magnesium 0 Yes [facility] 250 mg 1-17 st tablet [...] 00:00: Hospit a mg tablet 00 l QUERCETIN 2020-11 Yes [facility] DIHYDRATE, 2-15 st BULK, MISC 00:00: Hospita 00 l vitamin B 2020-11 Yes [facility] complex-fol 2-15 st ic acid 0.4 00:00: Hospit a mg tablet 00 l QUERCETIN 2020-11 Yes [facility] DIHYDRATE, 2-15 st BULK, MISC 00:00: Hospita 00 l vitamin B 2020-11 Yes [facility] complex-fol 2-15 st ic acid 0.4 00:00: Hospit a mg tablet 00 l gabapentin gabapentin No gabapentin [facility] 600 mg 600 mg 9-10 600 mg Orth[facility] tablet tablet 00:00: tablet dic 00 Sports Medicin e cholecalcif Yes Method i wili, 02-10 st vitamin D3, 00:00: Hospit a (Vitamin 00 l D3) 25 mcg (1,000 unit) capsule cholecalcif Yes Method i wili, 02-10 st vitamin D3, 00:00: Hospit a (Vitamin l D3) 25 mcg (1,000 unit) capsule cholecalcif Yes Method i wili, 02-10 st vitamin D3, 00:00: Hospit a (Vitamin l D3) 25 mcg (1,000 unit) capsule ascorbic Yes 1000mg QD Take 1,[address] acid, 8-31 mg [facility] vitamin C, 13:58: mouth Medica l (VITAMIN C) 00 daily. [place] 1000 MG tablet docusate Yes 100mg QD Take [address] sodium 8-31 mg by [facility] (COLACE) 13:58: mouth Medical 100 MG 00 daily. [place] capsule gabapentin Yes 300mg QD Take [address] (NEURONTIN) 8-31 mg by [facility] 300 MG 13:58: mouth Medical capsule 00 daily. [place] mirabegron Yes 25mg QD Take [address] (MYRBETRIQ) 8-31 by mouth Luke s 25 mg Tb24 13:58: daily. Medic al ER tablet 00 [facility] oxybutynin Yes 10mg QD Take [address] (DITROPAN-X 8-31 by mouth Luke s L) 10 MG 24 13:58: daily. Medi raheem hr tablet 00 [facility] sulfamethox Yes 1{tbl} QD Take [address] azole-trime 8-31 tablet by [facility] es thoprim 13:58: mouth Medical (BACTRIM 00 daily. [place] DS) 800-160 mg per tablet tadalafil Yes 10mg QD Take [address] (CIALIS) 10 8-31 by mouth Luke s MG tablet 13:58: daily. Medica l 00 Center tamsulosin Yes .4mg QD Take 0.[address] (FLOMAX) 8-31 mg by [facility] 0.4 mg Cap 13:58: mouth Medica l 24 hr 00 daily. [place] capsule traMADol 2019-0 Yes 50mg Take [address] (ULTRAM) 50 8-31 by mouth Luke s mg tablet 13:58: every 6 Medic al 00 (six) Center hours as needed for Pain. ascorbic 2019-0 Yes 1000mg QD Take 1,[address] acid, 8-31 mg by [facility] vitamin C, 13:58: mouth Medica l (VITAMIN C) 00 daily. [facility] 1000 MG tablet docusate [id number] Yes 100mg QD Take [address] sodium 8-31 mg by [facility]ukes (COLACE) 13:58: mouth Medical 100 MG 00 daily. [facility] capsule gabapentin 2019 Yes 300mg QD Take [address] (NEURONTIN) 8-31 mg by [facility] 300 MG 13:58: mouth Medical capsule 00 daily. [place] mirabegron Yes 25mg QD Take [address] (MYRBETRIQ) 8-31 by mouth Luke s 25 mg Tb24 13:58: daily. Medic al ER tablet 00 [facility] oxybutynin 0 Yes 10mg QD Take [address] (DITROPAN-X 8-31 by mouth Luke s L) 10 MG 24 13:58: daily. Medi raheem hr tablet 00 [facility] sulfamethox 2018-0 Yes 1{tbl} QD Take [address] azole-trime 8-31 tablet by [facility] thoprim 13:58: mouth Medical (BACTRIM 00 daily. [place] DS) 800-160 mg per tablet tadalafil Yes 10mg QD Take [address] (CIALIS) 10 8-31 by mouth Luke s MG tablet 13:58: daily. Medica l 00 [place] tamsulosin 2019-0 Yes .4mg QD Take 0.[address] (FLOMAX) 8-31 mg by [facility] 0.4 mg Cap 13:58: mouth Medica l 24 hr 00 daily. [place] capsule traMADol 2019-0 Yes 50mg Take [address] [...] Immunizations Ordered Filled Immunization Date Status Comments [facility] e Immunization Name Name influenza, influenza, 2022-08-26 Completed [facility] dic unspecified unspecified 00:00:00 [facility] ine formulation formulation PFIZER COVID-19 2021-08-17 Completed [facility] VACCINATION 00:00:00 [facility] PFIZER COVID-19 2021-08-17 Completed [facility] VACCINATION 00:00:00 [facility] PFIZER COVID-19 2021-08-17 Completed [facility] VACCINATION 00:00:00 [facility] influenza, influenza, 2021-08-12 Completed [facility] dic unspecified unspecified 00:00:00 [facility] ine formulation formulation PFIZER COVID-19 2021-01-26 Completed [facility] VACCINATION 00:00:00 [facility] PFIZER COVID-19 2021-01-26 Completed [facility] VACCINATION 00:00:00 [facility] PFIZER COVID-19 2021-01-26 Completed [facility] VACCINATION 00:00:00 [facility] PFIZER COVID-19 2021-01-05 Completed [facility] VACCINATION 00:00:00 [facility] PFIZER COVID-19 2021-01-05 Completed [facility] VACCINATION 00:00:00 [facility] PFIZER COVID-19 2021-01-05 Completed [facility] VACCINATION 00:00:00 Hospital Vital Signs Vital Name Observation Time Observation Value Comments Source Systolic blood 2022-01-13 21:55:00 144 mm[Hg] [facility] pressure Diastolic blood 2022-01-13 21:55:00 89 mm[Hg] [facility] pressure Heart rate 2022-01-13 21:55:00 74 /min [facility] Body temperature 2022-01-13 21:55:00 36.56 Nell[facility] Respiratory rate 2022-01-13 21:55:00 18 /min [facility] Oxygen saturation in 2022-01-13 21:55:00 96 /min [facility] Arterial blood by Pulse oximetry Body height 2022-01-13 16:19:00 172.7 cm [facility] Body weight 2022-01-13 16:19:00 121.519 kg [facility] BMI 2022-01-13 16:19:00 40.73 kg/m2 [facility] Procedures Procedure Date / Time Performing Clinician Source Performed TESTOSTERONE, TOTAL AND 2022-10-20 15:49:00 [facility] FREE, IMMUNOASSAY AND Shanika CALCULATION (FOR ADULT MALES) PROSTATE SPECIFIC ANTIGEN 2022-10-20 15:49:00 [facility] (PSA), TOTAL, Shanika ULTRASENSITIVE ESTRADIOL LEVEL 2022-10-20 15:49:00 [facility] Ho leni Voss CBC WITH PLATELET AND 2022-10-20 15:49:00 [facility] DIFFERENTIAL Shanika CBC WITH PLATELET AND 2022-10-20 15:49:00 [facility] DIFFERENTIAL Shanika TESTOSTERONE, TOTAL AND 2022-06-26 14:24:00 [facility] FREE, IMMUNOASSAY AND Shanika CALCULATION (FOR ADULT MALES) ESTRADIOL LEVEL 2022-06-26 14:24:00 [facility] Ho spital Shanika CBC WITH PLATELET AND 2022-06-26 14:24:00 [facility] DIFFERENTIAL Shanika PROSTATE SPECIFIC ANTIGEN 2022-06-26 14:24:00 [facility] (PSA), TOTAL, Shanika ULTRASENSITIVE CBC WITH PLATELET AND 2022-06-26 14:24:00 [facility] DIFFERENTIAL Shanika XR, shoulder, 2 or more 2022-04-18 00:00:00 Manny antony [facility] TESTOSTERONE LEVEL, FREE 2022-03-23 15:33:00 [facility] TOTAL, MALE PROLACTIN LEVEL 2022-03-23 15:33:00 [facility] spital FOLLICLE STIMULATING 2022-03-23 15:33:00 [employer] [facility] HORMONE LUTEINIZING HORMONE 2022-03-23 15:33:00 [facility] TESTOSTERONE LEVEL, FREE 2022-03-02 16:04:00 Maren, [facility] AND TOTAL, MALE CBC WITH PLATELET AND 2022-03-02 16:04:00 [facility] DIFFERENTIAL ESTRADIOL LEVEL 2022-03-02 16:04:00 [facility] PSA, ULTRASENSITIVE 2022-03-02 16:04:00 [facility] US RENAL 2022-02-06 14:31:19 [facility] spital SURGICAL PATHOLOGY 2022-01-13 19:49:00 [facility] REQUEST IA AN ELECTIVE 2022-01-13 19:27:43 Ryann Curry [facility] SUPRAGLOTTIC AIRWAY CYSTO, URETEROSCOPY 2022-01-13 19:04:00 [facility] CALCULI ANALYSIS WITH 2022-01-13 18:48:00 [facility] PHOTO URINE CULTURE 2022-01-09 16:26:00 Olive Candelario ospital HC COMPLETE BLD COUNT 2022-01-09 16:26:00 Olive Candelario [facility] W/AUTO DIFF COMPREHENSIVE METABOLIC 2022-01-09 16:26:[address] [facility] [place] [place] PANEL ESTIMATED GFR 2022-01-09 16:26:00 Olive Candelario [facility]ital HEMOGLOBIN A1C 2022-01-09 16:26:00 [facility] Cand[facility] ECG PRE/POST OP 2022-01-09 16:21:41 [facility] Cand[facility]ital COVID-19 QUALITATIVE 2022-01-09 15:32:00 Isabella Engel [facility] RT-PCR URINALYSIS SCREEN AND 2022-01-09 15:32:00 [facility] WITH REFLEX TO CULTURE CT RENAL STONE PROTOCOL 2021-12-19 17:09:23 [facility] Shanika URINE CULTURE 2021-12-12 23:43:00 [facility] spital Shanika URINALYSIS SCREEN AND 2021-12-12 23:43:00 [facility] MICROSCOPY, WITH REFLEX Shanika TO CULTURE POC URINALYSIS DIPSTICK 2021-12-12 20:46:00 [facility] Plan of Care Planned Activity Planned Date Details Comments Source Future Scheduled 2023-04-05 Hepatitis C screening [facility] Test 16:32:19 (procedure) [code = [id number]] Future Scheduled 2023-04-05 COLONOSCOPY SCREENING [facility] Test 16:32:19 [code = COLONOSCOPY SCREENING] Future Scheduled 2023-04-05 SHINGLES VACCINES (1 Met [facility] Test 16:32:19 of 2) [code = SHINGLES VACCINES (1 of 2)] Future Scheduled 2023-04-05 65+ [facility] VACCINE (1 - PCV) [code = 65+ PNEUMOCOCCAL VACCINE (1 - PCV)] Future Scheduled 2023-04-05 COVID-19 VACCINE (4 - [facility] Test 16:32:19 Booster for Pfizer series) [code = COVID-19 VACCINE (4 - Booster for Pfizer series)] Future Scheduled 2023-04-05 INFLUENZA VACCINE Method [facility] Test 16:32:19 [code = INFLUENZA VACCINE] Future Scheduled 2023-03-30 Hepatitis C screening [facility] Test 13:30:07 (procedure) [code = [id number]] Future Scheduled 2023-03-30 COLONOSCOPY SCREENING [facility] Test 13:30:07 [code = COLONOSCOPY SCREENING] Future Scheduled 2023-03-30 SHINGLES VACCINES (1 Met [facility] Test 13:30:07 of 2) [code = SHINGLES VACCINES (1 of 2)] Future Scheduled 2023-03-30 65+ [facility] Test 13:30:07 VACCINE (1 - PCV) [code = 65+ PNEUMOCOCCAL VACCINE (1 - PCV)] Future Scheduled 2023-03-30 COVID-19 VACCINE (4 - Me [facility] Test 13:30:07 Booster for Pfizer series) [code = COVID-19 VACCINE (4 - Booster for Pfizer series)] Future Scheduled 2023-03-30 INFLUENZA VACCINE Method [facility] Hospital Test 13:30:07 [code = INFLUENZA VACCINE] Future Scheduled 2022-11-24 Hepatitis C screening [facility] Test 15:37:34 (procedure) [code = 627743488] Future Scheduled 2022-11-24 COLONOSCOPY SCREENING [facility] Test 15:37:34 [code = COLONOSCOPY SCREENING] Future Scheduled 2022-11-24 SHINGLES VACCINES (1 Met [facility] Test 15:37:34 of 2) [code = SHINGLES VACCINES (1 of 2)] Future Scheduled 2022-11-24 65+ PNEUMOCOCCAL Methodi [facility] Test 15:37:34 VACCINE (1 - PCV) [code = 65+ PNEUMOCOCCAL VACCINE (1 - PCV)] Future Scheduled 2022-11-24 COVID-19 VACCINE (4 - [facility] Test 15:37:34 Booster for Pfizer series) [code = COVID-19 VACCINE (4 - Booster for Pfizer series)] Future Scheduled 2022-11-24 INFLUENZA VACCINE Method [facility] Test 15:37:34 [code = INFLUENZA VACCINE] Encounters Start End Encounter Admission Attending Care Care Encounter Source Date/Time Date/Time Type Type Clinicians Facility Department ID 2023-04-03 2023-04-03 [id number] [address] [facility] 05:38:00 05:38:00 Mac [address] [facility] 2022-10-20 2022-10-26 Office Cee, 1.2.840.1 [id number] 27237 Methodi 09:45:00 18:17:12 Visit Vineet [address]0130.1.[address] [place] [address] 3.430.2.7 Hospit a .3.897047 l .8 2022-10-20 2022-10-26 Office Cee 1.2.840.1 [id number] 62899 49639 Methodi 09:45:00 18:17:12 Visit Vineet 79211.1.[address] [place] 3.430.2.7 Hospit a .3.537005 l .8 2022-10-26 2022-10-26 Outpatient FOG_Edwards AOSM AO 543 8457-20 Melvina 00:00:00 00:00:00 _Rox 832725 Orth ope [facility] 2022-10-26 2022-10-26 Odilon Aragon AO [place] - Ortho [id number] 5 Melvina 00:00:00 00:00:00 Andree Burgos MD: 7401 FOG_Ofc dic [facility] [address] [place] [address] , Ph. [phone] 2022-10-20 2022-10-20 Travel 1.2.840.1 1.2.976.865 4557 [id number] Methodi 00:00:00 00:00:[address] 3.430.2.7 0.2.7.3.698 Ho spita .3.072364 084.8 l .8 2022-10-20 2022-10-20 Travel 1.2.840.1 1.2.877.299 8819 441876 Methodi 00:00:00 00:00:[address] 3.430.2.7 0.2.7.3.698 Ho spita .3.653999 084.8 l .8 2022-08-11 2022-08-11 Orders Maren, 1.2.840.1 [id number] 867351 9908 Methodi 00:00:00 00:00:00 Only Isabella [address]66.1.[address] 3.430.2.7 Hospit a .3.417312 l .8 2022-08-11 2022-08-11 Orders Maren, 1.2.840.1 [id number] 9278 Methodi 00:00:00 00:00:00 Only Isabella 10236.1.[address] 3.430.2.7 Hospit a .3.784995 l .8 2022-06-26 2022-06-26 Office Amorita, 1.2.840.1 [id number] 37300 Methodi 09:00:00 09:20:06 Visit Vineet 05495.1.1 [address] [facility] 3.430.2.7 Hospit a .3.220117 l .8 2022-06-26 2022-06-26 Office Amorita, 1.2.840.1 [id number] 52235 Methodi 09:00:00 09:20:06 Visit Vineet 33938.1.1 [address] [facility] 3.430.2.7 Hospit a .3.170191 l .8 2022-06-26 2022-06-26 Travel 1.2.840.1 1.2.985.015 5782 353569 Methodi 00:00:00 00:00:[address] 3.430.2.7 0.2.7.3.698 Ho spita .3.577572 084.8 l .8 2022-06-26 2022-06-26 Travel 1.2.840.1 1.2.837.056 9081 276357 Methodi 00:00:00 00:00:[address] 3.430.2.7 0.2.7.3.698 Ho spita .3.475100 084.8 l .8 2022-04-19 2022-04-19 Outpatient FOG_Edwards AOSM AOSM 543 8457-20 Melvina 00:00:00 00:00:00 _Rox 907756 Orth ope dic Sports Medicin e 2022-04-18 2022-04-18 Outpatient FOG_Edwards AOSM AOSM 543 8457-20 Melvina 07:49:00 07:49:00 _Rox 330657 Orth ope dic Sports Medicin e 2022-04-18 2022-04-18 [facility] [place] - Ortho Melvina 00:00:00 00:00:00 Andree Valles MD: 7401 FOG_Ofc dic [facility], [place] [address] , Ph. [phone] 2022-04-18 2022-04-18 Outpatient Hai AOSM AOSM 30cca9 02-e 00:00:00 00:00:00 [facility] [id number] cd4d93 2022-04-17 2022-04-17 Telephone Maern, 1.2.840.1 [id number] 2099 [id number] Methodi 00:00:00 00:00:[address] 3.430.2.7 Hospit a .3.676932 l .8 2022-04-17 2022-04-17 Orders Maren, 1.2.840.1 [id number] 0561 Methodi 00:00:00 00:00:00 Only Isabella 93374.1.[address] 3.430.2.7 Hospit a .3.635639 l .8 2022-04-17 2022-04-17 Telephone Maren, 1.2.840.1 [id number] 2100 994140 Methodi 00:00:00 00:00:[address] 3.430.2.7 Hospit a .3.589108 l .8 2022-04-17 2022-04-17 Orders Maren, 1.2.840.1 [id number] 572290 0302 Methodi 00:00:00 00:00:00 Only Isabella 23523.1.[address] 3.430.2.7 Hospit a .3.485594 l .8 2022-04-14 2022-04-14 Outpatient FOG_Edwards AOSM AOSM 543 8457-20 Melvina 10:27:00 10:27:00 _Rox 424866 Orth ope dic Sports Medicin e 2022-04-14 2022-04-14 Outpatient FOG_Edwards AOSM AOSM 543 8457-20 Melvina 10:27:00 10:27:00 _Rox 850774 Orth ope dic Sports Medicin e 2022-03-23 2022-03-23 Office Maren, 1.2.840.1 [id number] [id number] 6190 Methodi 09:45:00 10:55:44 Visit Isabella 85283.1.[address] 3.430.2.7 Hospit a .3.740775 l .8 2022-03-23 2022-03-23 Travel 1.2.840.1 1.2.852.885 4394 647130 Methodi 00:00:00 00:00:[address] 3.430.2.7 0.2.7.3.698 Ho spita .3.939597 084.8 l .8 2022-03-02 2022-03-02 Office Maren, 1.2.840.1 [id number] 6584 Methodi 10:30:00 11:39:24 Visit Isabella 14457.1.[address] 3.430.2.7 Hospit a .3.513435 l .8 2022-03-02 2022-03-02 Travel 1.2.840.1 1.2.854.507 1691 244594 Methodi 00:00:00 00:00:[address] 3.430.2.7 0.2.7.3.698 Ho spita .3.332203 084.8 l .8 2022-02-06 2022-02-06 [facility] [id number] [address] [place] 00:00:00 00:00:[address] IS[address]A [address] 2022-02-06 2022-02-06 Travel 1.2.840.1 1.2.741.224 5265 062458 Methodi 00:00:00 00:00:[address] 3.430.2.7 0.2.7.3.698 Ho spita .3.995644 084.8 l .8 2022-01-17 2022-01-17 Orders Stromarco a, 1.2.840.1 [id number] Methodi 00:00:00 00:00:00 Only Donkasey 25824.1.[address] 3.430.2.7 Hospit a .3.817940 l .8 2022-01-13 2022-01-13 Hospital [place], 1.2.840.1 [id number] 51437 13499 Methodi 10:04:00 16:36:00 Encounter Isabella [address]234.1.[address] 3.430.2.7 Hospit a .3.780169 l .8 2022-01-13 2022-01-13 Surgery Galt, 1.2.840.1 [id number] 8137 Methodi 12:48:00 14:33:[address] 3.430.2.7 Hospit a .3.232923 l .8 2022-01-13 2022-01-13 Anesthesia Ryann Curry 1.2.840.1 104 516561 4994312177 Methodi 13:00:00 14:07:00 Event Olive Candelario 63591.1.[address] 3.430.2.7 Hospit a .3.140214 l .8 2022-01-12 2022-01-12 Telephone Gualberto, 1.2.840.1 [id number] 2099 237228 Methodi 00:00:00 00:00:[address] 3.430.2.7 Hospit a .3.573478 l .8 2022-01-09 2022-01-09 Pre-Admiss Galt, 1.2.840.1 [id number] 221 1050362 Methodi 09:00:00 10:00:00 ion Isabella 97185.1.[address] Testing 3.430.2.7 Hospit a .3.815399 l .8 2022-01-09 2022-01-09 Travel 1.2.840.1 1.2.203.224 3031 448912 Methodi 00:00:00 00:00:[address] 3.430.2.7 0.2.7.3.698 Ho spita .3.118250 084.8 l .8 2021-12-19 2021-12-19 Outpatient [facility] [id number] [address] [place] 00:00:00 00:00:[address] 2021-12-12 2021-12-12 Lab Provider, Not In System 1.2.840.1 [id number] Methodi 17:45:00 17:50:00 John Morgan 63462.1.[address] 3.430.2.7 Hospit a .3.524506 l .8 2021-12-12 2021-12-12 Office Cee, 1.2.840.1 [id number] 78721 48601 Methodi 14:30:00 14:45:00 Visit Vineet 25065.1.[address] Shanika 3.430.2.7 Hospit a .3.231312 l .8 2021-12-12 2021-12-12 Travel 1.2.840.1 1.2.022.785 9262 848466 Methodi 00:00:00 00:00:[address] 3.430.2.7 0.2.7.3.698 Ho spita .3.614309 084.8 l .8 2021-08-17 2021-08-17 Outpatient [facility] [id number] 7[address] [place] 00:00:00 00:00:[address] 2021-01-26 2021-01-26 Outpatient LEVILARRY [facility] [id number] 731 [place] 00:00:00 00:00:[address] SALVAT[address] 2021-01-05 2021-01-05 Outpatient [facility] [id number] 697 [place] 00:00:00 00:00:[address] 2021-01-05 2021-01-05 Outpatient MAREN [facility] [id number] 561 [place] 00:00:00 00:00:00 ISABELLA [address] Results Test Description Test Time Test Comments Results Result Comments Source ACT-ISTAT 2023-04-03 14:15:00 Test Item Value Reference Range Interpretation Comme nts ACT-ISTAT (test code = ACTI) 293 SEC 74-137 H Performed by certified chief operator reformer at [facility] BASIC METABOLIC [id number] 12:04:00 Test Item Value Reference Range Interpretation Comments SODIUM (test code = 139 mEq/L 134-147 N NA) POTASSIUM (test code 3.9 mEq/L 3.4-5.0 N = K) CHLORIDE (test code 104 mEq/L 100-108 N = CL) CARBON DIOXIDE (test 26 mEq/l 21-33 N code = CO2) ANION GAP (test code 12 0-20 N = GAP) GLUCOSE (test code = 88 mg/dL 70-110 N GLU) BLOOD UREA NITROGEN 10 mg/dL 7-18 N (test code = BUN) GLOMERULAR 101.6 80-90 H The Glomerular FILTRATION RATE Filtration R ate is a (test code = GFR) calculated parameterbased on serum Creatinine, pat ient age and sex. GFR va luesless than 60 mL/min/ 1.73 square meters a re indicative ofCh ronic Kidney Disease. Values less than 15 mL/min/1.73squa re meters indicate Kidney failure. The calculation forGFR is based on the CKD-EPI (2020) calculat ion. This formulais race indifferent and is the recommended for sherri for GFRby the Nat nal Kidney Foundati on for Adults.The GFR will not calculate if th e sex is unknown or if thepatient's ag e is <18 years. CREATININE (test 0.7 mg/dL 0.6-1.3 N code = CREAT) CALCIUM (test code = 8.6 mg/dL 8.0-10.5 N CA) CBC W/AUTO [id number] 12:03:00 Test Item Value Reference Range Interpretation Comments WHITE BLOOD CELL (test code = 9.8 x10 3/uL 4.5-11.0 N WBC) RED BLOOD CELL (test code = 4.98 x10 6/uL 4.00-5.60 N RBC) HEMOGLOBIN (test code = HGB) 14.0 g/dL 12.5-16.9 N HEMATOCRIT (test code = HCT) 41.8 % 37.5-50.7 N MEAN CELL VOLUME (test code = 83.9 fL 81.0-99.0 N MCV) MEAN CELL HGB (test code = MCH) 28.1 pg 27.0-33.0 N MEAN CELL HGB CONCETRATION 33.5 g/dL 33.0-37.0 N (test code = MCHC) RED CELL DISTRIBUTION WIDTH CV 14.6 % 11.5-14.5 H (test code = RDW) PLATELET COUNT (test code = 218 x10 3/uL 150-400 N PLT) NEUTROPHIL % (test code = NT%) 65.7 % 56.0-77.0 N LYMPHOCYTE % (test code = LY%) 19.5 % 14.0-32.0 N NEUTROPHIL # (test code = NT#) 6.45 x10 3/uL 2.0-7.6 N LYMPHOCYTE # (test code = LY#) 1.92 x10 3/uL 1.0-3.8 N MANUAL DIFF REQUIRED (test code NO = MDIFF) RED CELL DISTRIBUTION WIDTH SD 44.5 fL 37.0-54.0 N (test code = RDW-SD) MEAN PLATELET VOLUME (test code 10.4 fL 7.0-9.0 H = MPV) IMMATURE GRANULOCYTE % (test 0.2 % 0.0-2.0 N code = IG%) MONOCYTE % (test code = MO%) 8.6 % 4.8-9.0 N EOSINOPHIL % (test code = EO%) 4.9 % 0.3-3.7 H BASOPHIL % (test code = BA%) 1.1 % 0.0-2.0 N NUCLEATED RBC % (test code = 0.0 % 0-0 N NRBC%) IMMATURE GRANULOCYTE # (test 0.02 x10 3/uL 0.00-0.03 N code = IG#) MONOCYTE # (test code = MO#) 0.85 x10 3/uL 0.1-0.8 H EOSINOPHIL # (test code = EO#) 0.48 x10 3/uL 0.0-0.2 H BASOPHIL # (test code = BA#) 0.11 x10 3/uL 0.0-0.2 N NUCLEATED RBC # (test code = 0.00 x10 3/uL 0.0-0.1 N NRBC#) PROTHROMBIN [id number] 12:01:00 Test Item Value Reference Range Interpretation Comments PROTHROMBIN TIME 13.0 SECONDS 9.3-12.9 H PATIENT (test code = PTP) INTERNATIONAL NORMAL 1.2 0.8-1.2 N TARGET INR BY RATIO (test code = INDICATIO N Indication INR) INR1. Prophylax is of venous thrombos is 2.0 - 3.0 (orthoped ic surgery), Proph ylaxis of venous throm bosis (other than hig h-risk surgery), Treat ment of Deep Vein Thrombosis/Pulm onary Embolism, Preve ntion of systemic emb olism - Tissue heart va lves, Acute Myocardia l Infarction (to prevent systemic emboli sm), Valvular heart disease, Atrial Fibrillation, Bileaflet mecha nical valve in aortic position.2. Mec hanical prosthetic valv es (high risk), 2. 5 - 3.5 Presence of Lup us Anticoagulant o r Antiphospholipi d Antibodies, Pre vention of systemic emb olism - Acute Myocardia l Infarction (to prevent recurrent infar ct). - XR CHEST 2 [id number] 00:00:00 [facility] 1955 Sex: M FAX:Mac Hanna MD [phone] [place]: St: PRE Name: PARTHA BASSETT [facility] : 1955 Age/S: 67/M [address] [place] [address] Unit #: [id number] Loc: [place] [address] Phys: Mac Murphy MD Acct: [id number] Dis Date: Status: PRE SDC PHONE #: [phone] Exam Date: 03/30/2023 1154 FAX #: [phone] Reason: PREOP EXAMS: CPT CODE: [id number] XR CHEST 2 V 82505 PROCEDURE INFORMATION: Exam: XR Chest Exam date and time: 03/30/2023 11:45 AM Age: 67 years old Clinical indication: Screening exam; Pre-operative exam; Cardiovascular screening; Additional info: Preop TECHNIQUE: Imaging protocol: Radiologic exam of the chest. Views: 2 views. PA and Lateral COMPARISON: No relevant prior studies available.FINDINGS: Lungs: There are normal lung volumes without consolidation or interstitial opacities. Pleural spaces: Unremarkable. No pleural effusion. No pneumothorax. Heart/Mediastinum: The heart size is normal. The pulmonary vasculature is normal. The mediastinal contour is normal. The trachea is midline. Bones/joints: No acute abnormality seen. IMPRESSION: No acute cardiopulmonary findings. at 1205 Reported and signed by: Dave Phillips M.D. CC: Mac Murphy MD Technologist: Michael Donaldson Trnscrd Date/Time/By: 03/30/2023 (6384) : By: Chayo Orig Print D/T: S: 03/30/2023 (9578) PAGE 1 Signed ReportTestosterone level, free and total, [id number] 15:10:00 Test Item Value Reference Range Interpretation Comments Testosterone (test 1184 ng/dL 264-916 H Adult mal e code = 2986-8) reference interval is based on a population ofhealthy nonobese males (BMI <30) between 19 and 39 years old.Mela et.al. JCEM 2017,102;1161-1 1 73. PMID: 06678944. Testosterone, free 23.1 pg/mL 6.6-18.1 H (test code = 2991-8) JOSE (test code = JOSE) Performed at: [address] [place] [address] [id number] Director: Kareem Ortiz MD, Phone: [phone] ed at: [address] [id number] Director: Chiara Vela MD, Phone: [phone] Lab Interpretation Abnormal (test code = 19754-2) [facility] and [facility], [id number] 15:10:00 Test Item Value Reference Range Interpretation Comments Testosterone (test 1184 ng/dL 264-916 H Adult mal e code = 2986-8) reference interval is based on a population ofhealthy nonobese males (BMI <30) between 19 and 39 years old.Travison, et.al. JCEM 2017,102;1161-1 1 73. PMID: 91185758. Testosterone, free 23.1 pg/mL 6.6-18.1 H (test code = 2991-8) JOSE (test code = JOSE) Performed at: [address] [place] [address] [id number] Director: Kareem Ortiz MD, Phone: [phone] ed at: [address] [id number] Director: Chiara Vela MD, Phone: [phone] Lab Interpretation Abnormal (test code = 92737-8) [facility], free and total, [id number] 15:10:00 Test Item Value Reference Range Interpretation Comments Testosterone (test 1184 ng/dL 264-916 H Adult mal e code = 2986-8) reference interval is based on a population ofhealthy nonobese males (BMI <30) between 19 and 39 years old.Travison, et.al. JCEM 2017,102;1161-1 1 73. PMID: 62456813. Testosterone, free 23.1 pg/mL 6.6-18.1 H (test code = 2991-8) JOSE (test code = JOSE) Performed at: [address] [place] [address] [id number] Director: Kareem Ortiz MD, Phone: [phone] ed at: [address] [place] [address] [id number] Director: hCiara Vela MD, Phone: [phone] Lab Interpretation Abnormal (test code = 69876-0) [facility] with platelet and [id number] 15:10:00 Test Item Value Reference Range Interpretation Comments WBC (test code = See_Comment [Automated 6190-2) message] The system which generated this result transmit vesta reference range : 3.4 - 10.8 x10E3/uL. The reference range was not used to interpret this result as normal/abnormal . RBC (test code = See_Comment [Automated 849-8) message] The system which generated this result [...] [Automated absolute (test code message] The = 711-2) system which generated this result transmit vesta [...] % Not Estab. granulocytes (test code = 95415-9) Immature See_Comment [Automated granulocytes, message] The absolute (test code system w [facility] = 79252-7) generated this result transmit vesta reference range : 0.0 - 0.1 x10E3/uL. The reference range was not used to interpret this result as normal/abnormal . JOSE (test code = Performed at: [facility]) - [facility] [address] [id number] Director: Kareem Ortiz MD, Phone: [phone] [facility] HospitalEstradiol [id number] 15:10:00 Test Item Value Reference Range Interpretation Comments Estradiol (test code 66.2 pg/mL 7.6-42.6 H Ruddy E CLIA = 2243-4) methodology JOSE (test code = JOSE) Performed at: - [facility] [address] [id number] Director: Kareem Ortiz MD, Phone: [phone] Lab Interpretation Abnormal (test code = 82429-6) [facility] HospitalPSA, [id number] 15:10:00 Test Item Value Reference Interpretation Comments Range PSA, <0.006 0.000-4.000 Ruddy ECLIA ultrasensitive methodology.A ccording to (test code = the [place] ological 80525-5) Association, Se rum PSA shoulddecrease and remain [...] disease. JOSE (test code = Performed at: JOSE) 01 - [facility] [id number] Director: Kareem Ortiz MD, Phone: [phone] [facility] with platelet and [id number] 15:10:00 Test Item Value Reference Range Interpretation Comments WBC (test code = 7.6 See_Comment [Automated 6029-2) message] The system which generated this result transmit vesta reference range : 3.4 - 10.8 x10E3/uL. The reference range was not used to interpret this result as normal/abnormal . RBC (test code = 5.59 See_Comment [Automated 563-8) message] The system which generated this result [...] = 13.9 % 11.6-15.4 788-0) Platelet count 228 See_Comment [Automated (test code = 697-3) message] The system which generated this result [...] % Not Estab. code = 706-2) Neutrophils, 4.6 See_Comment [Automated absolute (test code message] The = 751-8) system which generated this result transmit vesta reference range : 1.4 - 7.0 x10E3/uL. The reference range was not used to interpret this result as normal/abnormal . Lymphocytes, 1.6 See_Comment [Automated absolute (test code message] The = 731-0) system which generated this result transmit vesta reference range : 0.7 - 3.1 x10E3/uL. The reference range was not used to interpret this result as normal/abnormal . Monocytes, absolute 0.9 See_Comment [Automa vesta (test code = 742-7) message] The system which generated this result transmit vesta reference range : 0.1 - 0.9 x10E3/uL. The reference range was not used to interpret this result as normal/abnormal . Eosinophils, 0.4 See_Comment [Automated absolute (test code message] The = 711-2) system which generated this result transmit vesta reference range : 0.0 - 0.4 x10E3/uL. The reference range was not used to interpret this result as normal/abnormal . Basophils, absolute 0.1 See_Comment [Automa vesta (test code = 704-7) message] The system which generated this result transmit vesta reference range : 0.0 - 0.2 x10E3/uL. The reference range was not used to interpret this result as normal/abnormal . Immature 0 % Not Estab. granulocytes (test code = 35274-2) Immature 0.0 See_Comment [Automated granulocytes, message] The absolute (test code system w [facility] = 72155-7) generated this result transmit vesta reference range : 0.0 - 0.1 x10E3/uL. The reference range was not used to interpret this result as normal/abnormal . JOSE (test code = Performed at: JOSE) - [facility] [address] [place] [address] [id number] Director: Kareem Ortiz MD, Phone: [phone] [facility]2022-12-10 15:10:00 Test Item Value Reference Range Interpretation Comments Estradiol (test code 66.2 pg/mL 7.6-42.6 H Ruddy E CLIA = 2243-4) methodology JOSE (test code = JOSE) Performed at: [facility] [id number] Director: Kareem Ortiz MD, Phone: [phone] Lab Interpretation Abnormal (test code = 40314-0) [facility], [id number] 15:10:00 Test Item Value Reference Interpretation Comments Range PSA, <0.006 0.000-4.000 Ruddy ECLIA ultrasensitive methodology.A ccording to (test code = the [place] Ur ological 70341-4) Association, Se rum PSA shoulddecrease and remain [...] disease. JOSE (test code = Performed at: JOSE) [facility] [id number] Director: Kareem Ortiz MD, Phone: [phone] [facility] with platelet and [id number] 15:10:00 Test Item Value Reference Range Interpretation Comments WBC (test code = 7.6 See_Comment [Automated 2946-2) message] The system which generated this result transmit vesta reference range : 3.4 - 10.8 x10E3/uL. The reference range was not used to interpret this result as normal/abnormal . RBC (test code = 5.59 See_Comment [Automated 536-8) message] The system which generated this result [...] = 13.9 % 11.6-15.4 788-0) Platelet count 228 See_Comment [Automated (test code = 777-3) message] [...] % Not Estab. code = 706-2) Neutrophils, 4.6 See_Comment [Automated absolute (test code message] The = 751-8) system which generated this result transmit vesta reference range : 1.4 - 7.0 x10E3/uL. The reference range was not used to interpret this result as normal/abnormal . Lymphocytes, 1.6 See_Comment [Automated absolute (test code message] The = 731-0) system which generated this result transmit vesta reference range : 0.7 - 3.1 x10E3/uL. The reference range was not used to interpret this result as normal/abnormal . Monocytes, absolute 0.9 See_Comment [Automa vesta (test code = 742-7) message] The system which generated this result transmit vesta reference range : 0.1 - 0.9 x10E3/uL. The reference range was not used to interpret this result as normal/abnormal . Eosinophils, 0.4 See_Comment [Automated absolute (test code message] The = 711-2) system which generated this result transmit vesta reference range : 0.0 - 0.4 x10E3/uL. The reference range was not used to interpret this result as normal/abnormal . Basophils, absolute 0.1 See_Comment [Automa vesta (test code = 704-7) message] The system which generated this result transmit vesta reference range : 0.0 - 0.2 x10E3/uL. The reference range was not used to interpret this result as normal/abnormal . Immature 0 % Not Estab. granulocytes (test code = 18376-3) Immature 0.0 See_Comment [Automated granulocytes, message] The absolute (test code system w [facility] = 37327-9) generated this result transmit vesta reference range : 0.0 - 0.1 x10E3/uL. The reference range was not used to interpret this result as normal/abnormal . JOSE (test code = Performed at: 01 [facility]) - Lab[address] [id number] Director: Kareem Ortiz MD, Phone: [phone] [facility] [id number] 15:10:00 Test Item Value Reference Range Interpretation Comments Estradiol (test code 66.2 pg/mL 7.6-42.6 H Ruddy E CLIA = 2243-4) methodology JOSE (test code = JOSE) Performed at: [address] [place] [id number] Director: Kareem Ortiz MD, Phone: [phone] Lab Interpretation Abnormal (test code = 30964-1) [facility], [id number] 15:10:00 Test Item Value Reference Interpretation Comments Range PSA, <0.006 0.000-4.000 Ruddy ECLIA ultrasensitive methodology.A ccording to (test code = the [place] ological 36507-6) Association, Se rum PSA shoulddecrease and remain [...] = Performed at: [facility]) [address] [place] [address] [id number] Director: Kareem Ortiz MD, Phone: [phone] [facility] HospitalFollicle stimulating [id number] 13:29:00 Test Item Value Reference Range Interpretation Comments Follicle See_Comment [Automated stimulating hormone message] The (test code = system which 40102-1) generated this result transmit vesta reference range : 1.5 - 12.4 mIU/ mL. The reference range was not u sed to interpret th is result as normal/abnormal . JOSE (test code = Performed at: JOSE) - [address] [id number] Director: Kareem Ortiz MD, Phone: [phone] [facility] HospitalLuteinizing [id number] 13:29:00 Test Item Value Reference Range Interpretation Comments Luteinizing hormone See_Comment [Automa vesta (test code = message] The 09113-9) system which generated this result transmit vesta reference range : 1.7 - 8.6 mIU/m L. The reference range was not u sed to interpret th is result as normal/abnormal . JOSE (test code = Performed at: JOSE) - [address] [id number] Director: Kareem Ortiz MD, Phone: [phone] [facility] HospitalProlactin [id number] 13:29:00 Test Item Value Reference Range Interpretation Comments Prolactin (test code = 12.6 ng/mL 4.0-15.2 2842-3) JOSE (test code = JOSE) Performed at: - [address] [id number] Director: Kareem Ortiz MD, Phone: [phone] [facility] [id number] 18:25:57 Test Item Value Reference Range Interpretation Comments Case number (test code [id number] = [id number]) Surgical pathology See link below for PDF report (test code = Lab Report 2255) Result status (test This is Final Report code = 4777898) for [id number] JOSE (test code = JOSE) [id number] Ureteral Stone [facility] HospitalCalculi analysis with [id number] 15:56:00 Test Item Value Reference Range Interpretation Comments Calculi mass (test see comment code = 3154-2) Calculi descrption see comment (test code = 70685-8) Calculi composition see comment (test code = 9795-6) EER calculi (stone) see comment Calculi (Stone) analysis and photo Analysis with Photo (test code = GENIE test code 11188-6) 1612129 Calculi Mass 72 mg - - - [...] Analysis and Ph leroy See Note Access [facility] Enhanced Report using the link below: -Direct access: [email or web address] ===== ===== ==== JOSE (test code = QSS-86-7771-Aftab JOSE) [facility] Ureteral Stone [facility] Pre/Post [id number] 13:20:01 Test Item Value Reference Range Interpretation Comments Ventricular rate (test code = 253) Atrial rate (test code = 255) IA interval (test code = 266) QRSD interval [...] Lorenz MD ([id number]) on 01/10/2022 7:19:59 AM Darian BullockUrine [id number] 17:40:00 Test Item Value Reference Range Interpretation Comments Urine culture (test SEE COMMENT Bacteriu senthil screen code = 4882073) negative. Darian SotoARS-CoV-2 (COVID-19) RNA [Presence] in Respiratory specimen by MONTSERRAT with probe [id number] 15:17:39 Test Item Value Reference Range Interpretation Comments SARS coronavirus RNA [Presence] Not detected in Isolate by MONTSERRAT with probe detection (test code = 73718-1) Whether patient is employed in a Unknown healthcare setting (test code = 82377-2) Whether the patient has symptoms Unknown related to condition of interest (test code = 23337-8) Whether the patient was Unknown hospitalized for condition of interest (test code = 28701-1) Whether the patient was admitted Unknown to intensive care unit (ICU) for condition of interest (test code = 85500-5) Whether patient resides in a Unknown congregate care setting (test code = 35369-4) status (test code = Unknown 77196-2) Date and time of symptom onset Unknown (test code = 22575-5) SVITLANA AMANDARS-CoV-2 (COVID-19) RNA [Presence] in Respiratory specimen by MONTSERRAT with probe [id number] 15:17:39 Test Item Value Reference Range Interpretation Comments SARS-CoV-2 (COVID-19) RNA Not detected [Presence] in Respiratory specimen by MONTSERRAT with probe detection (test code = 98367-1) Whether patient is employed in a Unknown healthcare setting (test code = 61275-2) Whether the patient has symptoms Unknown related to condition of interest (test code = 72701-9) Whether the patient was Unknown hospitalized for condition of interest (test code = 75212-2) Whether the patient was admitted Unknown to intensive care unit (ICU) for condition of interest (test code = 13856-3) Whether patient resides in a Unknown congregate care setting (test code = 36224-3) status (test code = Unknown 63239-5) Date and time of symptom onset Unknown (test code = 51588-9) [facility] urinalysis [id number] 20:46:00 Test Item Value Reference Range Interpretation Comments Color urine, POC (test Yellow code = 6955322) Clarity urine, POC (test Cloudy code = 3438280) Glucose urine, POC (test Negative Negative code = 6900474) Bilirubin urine, POC Negative Negative (test code = 8103950) Ketones urine, POC (test Trace Negative A code = 9512282) Specific gravity urine, 1.005-1.030 POC (test code = 3947354) Blood urine, POC (test Moderate Negative A code = 0376772) pH urine, POC (test code See_Comment [A utomated message] = 7898347) The system [employer] generated this result transmitted ref erence range: 5.0, 5.5 , 6.0, 6.5, 7.0, 7.5, 8.0, 8.5. The refere nce range was not u sed to interpret this result as normal/abnor mal. Protein urine, POC (test Negative Negative code = 7330431) Urobilinogen urine, POC <2.0 See_Comment [Au tomated message] (test code = 3407559) The sy stem which generated this result transmitted ref erence range: <=2.0. T he reference range was not used to int erpret this result as normal/abnormal . Nitrite urine, POC (test Negative Negative code = 0340672) Leukocyte esterase Negative Negative urine, POC (test code = 3539290) Lab Interpretation (test Abnormal code = 92062-4) [facility] HospitalHEMOGLOBIN AND [id number] 12:09:00 Test Item Value Reference Range Interpretation Comments HEMOGLOBIN (BEAKER) (test code = 9.2 GM/DL 13.7-17.5 L 410) HEMATOCRIT (BEAKER) (test code = 28.1 % 40.1-51.0 L 411) [id number] 07:56:00 Test Item Value Reference Range Interpretation Comments PHOSPHORUS (BEAKER) (test code = 2.7 mg/dL 2.3-4.7 604) [id number] 07:56:00 Test Item Value Reference Range Interpretation Comments MAGNESIUM (BEAKER) (test code = 1.9 mg/dL 1.6-2.6 627) BASIC METABOLIC [id number] 07:56:00 Test Item Value Reference Range Interpretation [...] APPLICABLE FOR DIALYSIS PATIEN TS. HEMOGLOBIN AND [id number] 07:02:00 Test Item Value Reference Range Interpretation Comments HEMOGLOBIN (BEAKER) (test code = 9.2 GM/DL 13.7-17.5 L 410) HEMATOCRIT (BEAKER) (test code = 28.2 % 40.1-51.0 L 411) HEMOGLOBIN AND [id number] 00:35:00 Test Item Value Reference Range Interpretation Comments HEMOGLOBIN (BEAKER) (test code = 8.8 GM/DL 13.7-17.5 L 410) HEMATOCRIT (BEAKER) (test code = 26.1 % 40.1-51.0 L 411) HEMOGLOBIN AND [id number] 16:41:00 Test Item Value Reference Range Interpretation Comments HEMOGLOBIN (BEAKER) (test code = 9.7 GM/DL 13.7-17.5 L 410) HEMATOCRIT (BEAKER) (test code = 29.9 % 40.1-51.0 L 411) CALCIUM, [id number] 09:28:00 Test Item Value Reference Range Interpretation Comments CALCIUM IONIZED (BEAKER) (test 1.17 mmol/L 1.12-1.27 code = 698) PH, BLOOD (BEAKER) (test code = 7.47 1810) CBC W/PLT COUNT & AUTO [id number] 09:26:00 Test Item Value Reference Range Interpretation [...] PERCENT (BEAKER) (test code = 2801) POCT-GLUCOSE [id number] 06:09:00 Test Item Value Reference Range Interpretation Comments POC-GLUCOSE METER 94 mg/dL 70-110 TESTED AT [facility] 6720 (BEAKER) (test code = [place] [address] 1538) URINALYSIS W/ REFLEX URINE [id number] 04:41:00 Test Item Value Reference Range Interpretation [...] /LPF = 514) SOURCE(BEAKER) (test code = 0007) HEPATIC FUNCTION [id number] 03:58:00 Test Item Value Reference Range Interpretation [...] = 12 U/L 6-55 347) BASIC METABOLIC [id number] 03:58:00 Test Item Value Reference Range Interpretation [...] S NOT APPLICABLE FOR DIALYSIS PATIEN TS. [id number] 03:58:00 Test Item Value Reference Range Interpretation Comments MAGNESIUM (BEAKER) (test code = 2.0 mg/dL 1.6-2.6 627) [id number] 03:58:00 Test Item Value Reference Range Interpretation Comments PHOSPHORUS (BEAKER) (test code = 2.5 mg/dL 2.3-4.7 604) [id number] 03:30:00 Test Item Value Reference Range Interpretation [...] mechanical heart valves.CBC W/PLT COUNT & AUTO [id number] 03:13:00 Test Item Value Reference Range Interpretation [...] 0-1 PERCENT (BEAKER) (test code = 2801) Notes Date/Time Note Provider Source 2023-03-30 11:29:00-00:00 [id number] [place] [address] PATIENT NAME: PARTHA BASSETT ADMIT DATE: ACCOUNT NO: [id number] ROOM NO: AGE: 67 REPORT TYPE: eELECTROCARDIOGRAM REPORT SEX: M ADMITTING PHYSICIAN: ATTENDING PHYSICIAN:Mac Murphy MD Order: [id number] Test Reason : PRE OP Test Date/Time Stamp: SunMar 30 2023 11:29:43 Blood Pressure : / mmHG Vent. Rate : 072 BPM Atrial Rate : 072 BPM P-R Int : 194 ms QRS Dur : 096 ms QT Int : 384 ms P-R-T Axes : 036 002 -01 degree s QTc Int : 420 ms Normal sinus rhythm Normal ECG PRE_OP Confirmed by BEN SELLERS MD ([id number]) on 03/30/20 12:21:01 PM Referred By: Mac Murphy Confirmed by:BEN IBRAHIM MD at 1221 PATIENT NAME: PARTHA BASSETT 89
[2023-04-05 17:29] LABS: Absolute Lymphocytes (CBC) 2.1 K/uL (0.7-4.9); Hematocrit 38.9 % (39.6-49.0); Lymphocytes % 21.8 % (15.3-44.8); MCV 84.6 fL (80-100); MPV 8.8 fL (7.6-11.3)
[2023-04-05 17:40] LABS: Specific Gravity 1.013 (1.005-1.030); Urine Bilirubin NEGATIVE (Negative); Urine Blood Negative (Negative); Urine Clarity Clear (Clear); Urine Color Light-Yellow (Yellow); Urine Glucose NEGATIVE (Negative); Urine Protein NEGATIVE (Negative); Urine Urobilinogen Normal (Normal); Urine pH 6.5 (5.0-7.0)
[2023-04-05 17:44] LABS: Albumin 3.4 g/dL (3.4-5.0); Bilirubin Total 0.6 mg/dL (0.2-1.0); Potassium 3.6 mEq/L (3.5-5.1); Protein, Total 7.4 g/dL (6.4-8.2)
--- NOTE | 2023-04-05 18:55 | RAD REPORT ---
EXAM DESCRIPTION: CT - Abdomen Pelvis W Contrast - 04/05/2023 6:21 pm CLINICAL HISTORY: Abdominal pain COMPARISON: 2021 TECHNIQUE: Computed axial tomography of the abdomen pelvis was obtained. 100 cc Isovue-300 was admin istered intravenously. Oral contrast was not requested which limits evaluation of bowel and appendix All CT scans are performed using dose optimization technique as appropriate and may include automated exposure control or mA/KV adjustment according to patient size. FINDINGS: Postsurgical changes involve the heart. Stranding is present within the subcutaneous fat of the right groin. A significant fluid collection i s not present. The liver, spleen, pancreas, and adrenals unremarkable. Tiny renal calculi. No hydronephrosis. There is no evidence of diverticulitis. Mild anterior subluxation L5 on S1. Spondylolysis L5. Prostatectomy. Small to moderate umbilical hernia containing fat IMPRESSION: Stranding within the subcutaneous fat of the right groin secondary to recent instrumenta tion. No significant fluid collection Tiny nonobstructing renal calculi
--- NOTE | 2023-04-05 19:02 | ER ---
Nurse's Notes [facility] Name: Ryan Bassett Age: 67 yrs Sex: Male : 1955 Arrival Date: 04/05/2023 Time: 16:28 Bed 17 Private MD: Aakash Tilley V Diagnosis: Lower abdominal pain, unspecified Presentation: 04/05 16:37 Chief complaint: Patient states: Low abdominal pain since yesterday, had PFO repair nj1 surgery on Sunday, incision on right groin. Denies nausea, vomiting and diarrhea. Coronavirus screen: Vaccine status: Patient reports receiving the 2nd dose of the covid vaccine. Ebola Screen: Patient denies travel to an Ebola-affected area in the 21 days before illness onset. Initial Sepsis Screen: Does the patient meet any 2 criteria? No. Patient's initial sepsis screen is negative. Does the patient have a suspected source of infection? No. Patient's initial sepsis screen is negative. Risk Assessment: Do you want to hurt yourself or someone else? Patient reports no desire to harm self or others. Onset of symptoms was April 04, 2023. 16:37 Method Of Arrival: Ambulatory [facility] 16:37 Acuity: KAYCE 3 nj1 Historical: - Allergies: 16:41 No Known Allergies; nj1 - PMHx: 16:41 Chronic pain; Kidney stones; Prostate Cancer; Cerebrovascular accident; nj1 - PSHx: 16:41 Lithotripsy; prostate removed; PFO repair, 04/03/2022; nj1 - Immunization history:: Client reports receiving the 2nd dose of the Covid vaccine. - Social history:: Smoking status: Patient denies any tobacco usage or history of. Screenin:00 [facility] ED Fall Risk Assessment (Adult) History of falling in the last 3 months, kc6 including since admission No falls in past 3 months (0 pts) Confusion or Disorientation No (0 pts) Intoxicated or Sedated No (0 pts) Impaired Gait No (0 pts) Mobility Assist Device Used No (0 pt) Altered Elimination No (0 pt) Score/Fall Risk Level 0 - 2 = Low Risk Oriented to surroundings, Maintained a safe environment, Educated pt \T\ family on fall prevention, incl call for assistance when getting out of bed, Assessed \T\ reinforced patient's understanding of fall precautions, Hourly rounding (assess needs \T\ fall precautionary measures) done. Abuse screen: Denies threats or abuse. Denies injuries from another. Nutritional screening: No deficits noted. Tuberculosis screening: No symptoms or risk factors identified. Assessment: 17:00 General: Appears in no apparent distress. comfortable, Behavior is calm, cooperative, kc6 appropriate for age. Pain: Complains of pain in right lower quadrant and left lower quadrant Pain currently is 3 out of 10 on a pain scale. Neuro: Gomez Agitation-Sedation Scale (RASS): 0 - Alert and Calm Level of Consciousness is awake, alert, obeys commands, Oriented to person, place, time, situation, Appropriate for age. Cardiovascular: Capillary refill < 3 seconds. Respiratory: Airway is patent Trachea midline Respiratory effort is even, unlabored, Respiratory pattern is regular, symmetrical. GI: Abdomen is round non-distended, Bowel sounds present X 4 quads. Abd is soft X 4 quads Abdomen is tender to palpation in right lower quadrant and left lower quadrant Patient currently denies diarrhea, nausea, vomiting. : No signs and/or symptoms were reported regarding the genitourinary system. EENT: No signs and/or symptoms were reported regarding the EENT system. Derm: No signs and/or symptoms reported regarding the dermatologic system. Skin is intact, Skin is pink, warm \T\ dry. Musculoskeletal: No signs and/or symptoms reported regarding the musculoskeletal system. Circulation, motion, and sensation intact. Capillary refill < 3 seconds, Range of motion: intact in all extremities. 18:00 Reassessment: Patient appears in no apparent distress at this time. No changes from kc6 previously documented assessment. Patient and/or family updated on plan of care and expected duration. Pain level reassessed. Patient is alert, oriented x 3, equal unlabored respirations, skin warm/dry/pink. Vital Signs: 16:37 BP 121 / 80; Pulse 82; Resp 18; Pulse Ox 98% on R/A; Weight 113.4 kg; Height 5 ft. 8 nj1 in. ; Pain 5/10; 17:52 BP 108 / 64; Pulse 76; Resp 18 S; Pulse Ox 98% on R/A; Pain 3/10; kc6 18:59 BP 121 / 67; Pulse 75; Resp 18 S; Pulse Ox 100% on R/A; kc6 16:37 Body Mass Index 38.01 (113.40 kg, 172.72 cm) nj1 16:37 Pain Scale: Adult nj1 17:52 Pain Scale: Adult kc6 ED Course: 16:32 Patient arrived in ED. im 16:32 Aakash Tilley MD is Private Physician. im 16:33 [facility]C [facility] kb 16:33 Matt Taveras MD is Attending Physician. kb 16:41 Triage completed. nj1 16:42 Arm band placed on left wrist. nj1 17:00 Patient has correct armband on for positive identification. Bed in low position. Call kc light in reach. Side rails up X 1. Adult w/ patient. 17:01 Radiology exam delayed due to lab results not completed at this time. (BUN/Creatinine) ls3 IV insertion attempt and/or patient not having appropriate IV at this time. 17:18 Urinalysis w/ reflexes Sent. kj1 17:18 Initial lab(s) drawn, by me. Inserted saline lock: 20 gauge in right antecubital area, kj1 using aseptic technique. Blood collected. 17:38 Maribeth Valera, RN is Primary Nurse. kc6 18:23 CT Abd/Pelvis - IV Contrast Only In Process Unspecified. EDMS 19:33 No provider procedures requiring assistance completed. pf1 19:33 No provider procedures requiring assistance completed. IV discontinued, intact, ll3 bleeding controlled, No redness/swelling at site. Pressure dressing applied. 19:33 IV discontinued, intact, bleeding controlled, No redness/swelling at site. Pressure pf1 dressing applied. Administered Medications: No medications were administered Medication: 19:33 VIS not applicable for this client. ll3 Outcome: 19:01 Discharge ordered by . kb 19:31 Discharged to home ambulatory. pf1 19:31 Condition: good 19:31 Discharge instructions given to patient, Instructed on discharge instructions, follow up and referral plans. Demonstrated understanding of instructions, follow-up care. 19:33 Patient left the ED. ll3 Signatures: Dispatcher [employer] EDMS Gi Liu FNP-C FNP-Ckb Siler, Lynzie ls3 Yolanda Liu kj1 Patrick Ervin RN RN ll3 Maribeth Valera RN RN kc6 Cierra Adkins RN RN pf1 Lisa Veronica RN RN nj1 Shereen Herbert Corrections: (The following items were deleted from the chart) 16:44 16:37 Chief complaint: Patient states: Low abdominal pain since yesterday, had surgery nj1 on sunday. nj1
--- NOTE | 2023-04-05 19:02 | EDPHYS ---
Physician Documentation [facility] Name: Ryan Bassett Age: 67 yrs Sex: Male : 1955 Arrival Date: 04/05/2023 Time: 16:28 Bed 17 Private MD: Aakash Tilley V ED Physician Matt Taveras HPI: 04/05 17:12 This 67 yrs old Male presents to ER via Ambulatory with complaints of Abdominal Pain. kb 17:12 The patient presents with abdominal pain in the lower abdomen. Onset: The kb symptoms/episode began/occurred yesterday. The symptoms do not radiate. Associated signs and symptoms: none. The symptoms are described as constant. Modifying factors: The symptoms are alleviated by nothing, the symptoms are aggravated by nothing. Severity of pain: At its worst the pain was mild in the emergency department the pain is unchanged. The patient has not experienced similar symptoms in the past. The patient has been recently seen by a physician:. Pt reports lower abd pain that started yesterday. States he had a PFO repair on Sunday through right groin. Called Dr Murphy's office and was told to come in to make sure everything was ok. Historical: - Allergies: 16:41 No Known Allergies; nj1 - PMHx: 16:41 Chronic pain; Kidney stones; Prostate Cancer; Cerebrovascular accident; nj1 - PSHx: 16:41 Lithotripsy; prostate removed; PFO repair, 04/03/2022; nj1 - Immunization history:: Client reports receiving the 2nd dose of the Covid vaccine. - Social history:: Smoking status: Patient denies any tobacco usage or history of. ROS: 17:12 Constitutional: Negative for fever, chills, and weight loss. kb 17:12 Abdomen/GI: Positive for abdominal pain, Negative for nausea, vomiting, and diarrhea. 17:12 All other systems are negative. Exam: 17:12 Constitutional: This is a well developed, well nourished patient who is awake, alert, kb and in no acute distress. Head/Face: Normocephalic, atraumatic. ENT: Moist Mucous membranes Cardiovascular: Regular rate and rhythm with a normal S1 and S2. No gallops, murmurs, or rubs. No pulse deficits. Respiratory: Respirations even and unlabored. No increased work of breathing. Talking in full sentences Abdomen/GI: Soft, non-tender. No distention Skin: Warm, dry with normal turgor. Normal color. MS/ Extremity: Pulses equal, no cyanosis. Neurovascular intact. Full, normal range of motion. Neuro: Awake and alert, GCS 15, oriented to person, place, time, and situation. Moves all extremities. Normal gait. Vital Signs: 16:37 BP 121 / 80; Pulse 82; Resp 18; Pulse Ox 98% on R/A; Weight 113.4 kg; Height 5 ft. 8 nj1 in. ; Pain 5/10; 17:52 BP 108 / 64; Pulse 76; Resp 18 S; Pulse Ox 98% on R/A; Pain 3/10; kc6 18:59 BP 121 / 67; Pulse 75; Resp 18 S; Pulse Ox 100% on R/A; kc6 16:37 Body Mass Index 38.01 (113.40 kg, 172.72 cm) nj1 16:37 Pain Scale: Adult nj1 17:52 Pain Scale: Adult kc6 MDM: 16:33 Patient medically screened. kb 19:00 Data reviewed: vital signs, nurses notes. kb 19:00 Differential diagnosis: uti, kidney stone, post-surgical hematoma, post-surgical kb infection. Historians other than the Patient: Spouse/Significant Other: . Counseling: I had a detailed discussion with the patient and/or guardian regarding: the historical points, exam findings, and any diagnostic results supporting the discharge/admit diagnosis, lab results, radiology results, the need for outpatient follow up, a family practitioner, to return to the emergency department if symptoms worsen or persist or if there are any questions or concerns that arise at home. 04/05 16:43 Order name: CBC with Diff; Complete Time: 17:51 kb 04/05 16:43 Order name: CMP; Complete Time: 17:51 kb 04/05 16:43 Order name: Lipase; Complete Time: 17:51 kb 04/05 16:43 Order name: Urinalysis w/ reflexes; Complete Time: 17:51 kb 04/05 16:43 Order name: CT Abd/Pelvis - IV Contrast Only; Complete Time: 18:57 kb 04/05 16:43 Order name: IV Saline Lock; Complete Time: 17:18 kb 04/05 16:43 Order name: Labs collected and sent; Complete Time: 17:18 kb Administered Medications: No medications were administered Disposition Summary: 04/05/23 19:01 Discharge Ordered Location: Home kb Condition: Stable kb Diagnosis - Lower abdominal pain, unspecified kb Followup: kb - With: Emergency Department - When: As needed - Reason: Worsening of condition Followup: kb - With: Private Physician - When: 2 - 3 days - Reason: Recheck today's complaints, Continuance of care, Re-evaluation by your physician Discharge Instructions: - Discharge Summary Sheet kb - Abdominal Pain, Adult, Ngwn-lk-Culu kb Forms: - Medication Reconciliation Form kb - Thank You Letter kb - Antibiotic Education kb - Prescription Opioid Use kb Signatures: Dispatcher [employer] Gi Jones, X RAY SERVICE ENGINEER-C AMANDA-Lisa Paulino, RN RN nj1
[2023-04-05 20:03] VITALS: BP 121/67; O2SAT 100
[2023-04-05 20:06] VITALS: TEMP 98.4
== END 2023-04-05 19:33 | disposition home or self-care (01) ==
LOC: ER 16:28
DX: R10.30 Lower abdominal pain, unspecified (principal); Z86.73 Personal history of transient ischemic attack (TIA), and cerebral infarction without residual deficits; Z85.46 Personal history of malignant neoplasm of prostate; Z87.442 Personal history of urinary calculi
CPT/HCPCS: 85025; 36415; 81003; 83690; 80053; 74177; 99284; Q9967